=== PATIENT | female | born 1935 | race Caucasian/White ===

== ENCOUNTER 2020-06-26 07:46 | Outpatient (REF) | payer MEDICARE, SELFPAY ==
[2020-06-26 08:47] LABS: Mean Corpuscular Volume 95.6 fL (80-98)
[2020-06-26 08:49] LABS: Basophils Percent Auto 0.6 % (0-2); Eosinophils Absolute Auto 0.3 X10*3/uL (0.0-0.4); Eosinophils Percent Auto 5.4 % (0-4); Hematocrit 41.6 % (37-47); Hemoglobin 13.3 g/dl (12.0-16.0); Lymphocytes Absolute Auto 1.7 X10*3/uL (1.2-4.9); Lymphocytes Percent Auto 34.8 % (20-40); Mean Corpuscular Hemoglobin 30.6 pg (27.0-33.0); Mean Platelet Volume 10.8 fL (9.4-12.3); Monocytes Absolute Auto 0.5 X10*3/uL (0.1-1.2); Monocytes Percent Auto 9.9 % (2-11); Neutrophils Absolute Auto 2.5 X10*3/uL (2.0-8.3); Neutrophils Percent Auto 49.3 % (45-73); Platelet Count 131 X10*3/uL (160-400); Red Blood Count 4.35 X10*6/uL (4.20-5.50); Red Cell Distribution Width 12.6 % (11.0-16.0)
[2020-06-26 08:58] LABS: MANUAL DIFF FLAG NO
[2020-06-26 09:11] LABS: Alanine Aminotransferase 27 U/L (0-31); Albumin Level 4.2 g/dL (3.5-5.0); Alkaline Phosphatase 37 U/L (39-117); Anion Gap 13 (12-20); Aspartate Amino Transferase 21 U/L (5-31); Bilirubin Total 0.6 mg/dL (0.0-1.0); Blood Urea Nitrogen 21 mg/dL (9-16); Calcium 9.7 mg/dL (8.4-10.2); Carbon Dioxide 27 mmol/L (22-29); Chloride 105 mmol/L (96-108); Cholesterol 144 mg/dL; Estimated Glomerular Filt Rate > 60; Glucose Fasting 158 mg/dL (60-99); HDL Cholesterol 57 mg/dL; LDL Cholesterol Calculated 67 mg/dl; Potassium 4.6 mmol/l (3.3-5.1); Sodium 140 mmol/L (135-145); Total Protein 6.5 g/dL (6.5-8.0); Triglycerides 103 mg/dL
[2020-06-26 09:21] LABS: T4 Thyroxine 8.6 ug/dL (4.5-12.0); Thyroid Stimulating Hormone 1.65 uIU/mL (0.32-4.0)
[2020-06-26 09:41] LABS: Microalbum/Creatinine Ratio Ur 13.8 ug/mg cr
[2020-06-26 10:15] LABS: Folate 19.1 ng/mL (> or = 4.0); Vitamin B12 825 pg/mL (200-900)
== END 2020-06-26 07:47 | disposition home or self-care (01) ==
LOC: HO.LAB 07:46
PROVIDERS: PCP Internal Medicine; Visit Provider Internal Medicine
DX: E11.65 Type 2 diabetes mellitus with hyperglycemia (principal); E66.01 Morbid (severe) obesity due to excess calories; J45.998 Other asthma; E78.00 Pure hypercholesterolemia, unspecified; I10 Essential (primary) hypertension; E03.9 Hypothyroidism, unspecified
CPT/HCPCS: 36415; 80053; 80061; 82043; 82306; 82607; 82746; 84436; 84443; 85025

== ENCOUNTER 2020-07-25 12:41 | Outpatient (REF) | payer MEDICARE, SELFPAY | END 2020-07-25 12:42 | disposition home or self-care (01) | LOC: HO.LAB 12:41 | PROVIDERS: PCP Internal Medicine; Visit Provider Internal Medicine | DX: Z20.822 Contact with and (suspected) exposure to COVID-19 (principal) | CPT/HCPCS: 36415; C9803; U0003 ==

== ENCOUNTER 2021-06-21 08:26 | Outpatient (REF) | payer MEDICARE, SELFPAY ==
[2021-06-21 08:55] LABS: MANUAL DIFF FLAG NO
[2021-06-21 09:02] LABS: Basophils Percent Auto 0.6 % (0-2); Eosinophils Absolute Auto 0.2 X10*3/uL (0.0-0.4); Eosinophils Percent Auto 4.4 % (0-4); Hematocrit 42.3 % (37.0-47.0); Hemoglobin 13.6 g/dl (12.0-16.0); Lymphocytes Absolute Auto 1.4 X10*3/uL (1.2-4.9); Lymphocytes Percent Auto 28.9 % (20-40); Mean Corpuscular HGB Conc 32.2 g/dl (31.0-35.0); Mean Corpuscular Hemoglobin 30.6 pg (27.0-33.0); Mean Corpuscular Volume 95.3 fL (80.0-98.0); Monocytes Absolute Auto 0.4 X10*3/uL (0.1-1.2); Neutrophils Absolute Auto 2.7 x10*3/uL (2.0-8.3); Neutrophils Percent Auto 57.1 % (45-73); Platelet Count 123 X10*3/uL (160-400); Red Blood Count 4.44 X10*6/uL (4.20-5.50); Red Cell Distribution Width 12.7 % (11.0-16.0); White Blood Count 4.8 X10*3/uL (4.8-10.8)
[2021-06-21 09:52] LABS: Alanine Aminotransferase 21 U/L (0-31); Alkaline Phosphatase 38 U/L (39-117); Anion Gap 12 (12-20); Aspartate Amino Transferase 18 U/L (5-31); Blood Urea Nitrogen 18 mg/dL (9-16); Calcium 9.4 mg/dL (8.4-10.2); Carbon Dioxide 25 mmol/L (22-29); Chloride 108 mmol/L (96-108); Cholesterol 148 mg/dL; Estimated Glomerular Filt Rate > 60; Glucose Random 142 mg/dL (60-115); HDL Cholesterol 51 mg/dL; LDL Cholesterol Calculated 72 mg/dl; Potassium 4.4 mmol/L (3.3-5.1); Sodium 141 mmol/L (135-145); Total Protein 6.5 g/dL (6.5-8.0); Triglycerides 125 mg/dL
[2021-06-21 10:00] LABS: Estimated Average Glucose 157 mg/dL; Hemoglobin A1c % 7.1 %
[2021-06-21 10:12] LABS: Thyroid Stimulating Hormone 2.33 uIU/mL (0.32-4.0); Vitamin D 25-OH Total 37.6 ng/mL (>30)
[2021-06-21 10:31] LABS: Folate 18.5 ng/mL (> or = 4.0); Vitamin B12 474 pg/mL (200-900)
[2021-06-21 11:00] LABS: Creatinine Urine 114.93 mg/dL; Microalbum/Creatinine Ratio Ur 8.7 ug/mg cr
== END 2021-06-21 08:27 | disposition home or self-care (01) ==
LOC: HO.LAB 08:26
PROVIDERS: PCP Internal Medicine; Referring Provider Internal Medicine; Visit Provider Internal Medicine
DX: E11.65 Type 2 diabetes mellitus with hyperglycemia (principal); E78.00 Pure hypercholesterolemia, unspecified; Z79.4 Long term (current) use of insulin
CPT/HCPCS: 36415; 80053; 80061; 82043; 82306; 82607; 82746; 83036; 84443; 85025

== ENCOUNTER 2022-04-15 07:39 | Outpatient (REF) | payer MEDICARE, SELFPAY ==
[2022-04-15 08:02] LABS: MANUAL DIFF FLAG NO
[2022-04-15 08:38] LABS: Basophils Percent Auto 0.9 % (0-2); Eosinophils Absolute Auto 0.2 X10*3/uL (0.0-0.4); Eosinophils Percent Auto 3.5 % (0-4); Hematocrit 41.9 % (37.0-47.0); Hemoglobin 13.2 g/dl (12.0-16.0); Imm Gran Abs Auto 0.01 X10*3/uL (0.00-0.03); Imm Gran Pct Auto 0.2 % (0.0-0.4); Lymphocytes Absolute Auto 1.4 X10*3/uL (1.2-4.9); Lymphocytes Percent Auto 30.6 % (20-40); Mean Corpuscular HGB Conc 31.5 g/dl (31.0-35.0); Mean Corpuscular Hemoglobin 30.8 pg (27.0-33.0); Mean Corpuscular Volume 97.7 fL (80.0-98.0); Mean Platelet Volume 11.1 fL (9.4-12.3); Monocytes Absolute Auto 0.5 X10*3/uL (0.1-1.2); Monocytes Percent Auto 9.8 % (2-11); Neutrophils Absolute Auto 2.5 x10*3/uL (2.0-8.3); Platelet Count 118 X10*3/uL (160-400); Red Blood Count 4.29 X10*6/uL (4.20-5.50); Red Cell Distribution Width 12.3 % (11.0-16.0); White Blood Count 4.6 X10*3/uL (4.8-10.8)
[2022-04-15 08:48] LABS: Estimated Average Glucose 146 mg/dL; Hemoglobin A1c % 6.7 %
[2022-04-15 09:18] LABS: Alanine Aminotransferase 28 U/L (0-31); Albumin Level 4.1 g/dL (3.5-5.0); Alkaline Phosphatase 33 U/L (39-117); Anion Gap 16 (12-20); Aspartate Amino Transferase 23 U/L (5-31); Bilirubin Total 0.6 mg/dL (0.0-1.0); Blood Urea Nitrogen 17 mg/dL (9-16); Calcium 9.4 mg/dL (8.4-10.2); Carbon Dioxide 22 mmol/L (22-29); Chloride 108 mmol/L (96-108); Cholesterol 137 mg/dL; Estimated Glomerular Filt Rate > 60; Glucose Random 129 mg/dL (60-115); HDL Cholesterol 56 mg/dL; LDL Cholesterol Calculated 62 mg/dl; Potassium 4.9 mmol/L (3.3-5.1); Sodium 141 mmol/L (135-145); Total Protein 6.3 g/dL (6.5-8.0); Triglycerides 95 mg/dL
[2022-04-15 09:27] LABS: Free T4 (Free Thyroxine) 1.13 ng/dL (0.71-1.85); Thyroid Stimulating Hormone 2.08 uIU/mL (0.32-4.0)
== END 2022-04-15 07:40 | disposition home or self-care (01) ==
LOC: HO.LAB 07:39
PROVIDERS: PCP Internal Medicine; Visit Provider Internal Medicine
DX: I63.9 Cerebral infarction, unspecified (principal); E78.00 Pure hypercholesterolemia, unspecified
CPT/HCPCS: 36415; 80053; 80061; 83036; 84439; 84443; 85025

== ENCOUNTER 2022-04-19 11:52 | Outpatient (REF) | payer OTHER, SELFPAY ==
--- NOTE | ~2022-04-19 | XR_ITS ---
EXAMINATION: XR HIP, RIGHT CLINICAL INFORMATION: Pain. COMPARISON: None TECHNIQUE: AP and frog-leg lateral views of the right hip. FINDINGS: Bony alignment and mineralization are normal. There is mild narrowing of the right acetabular joint space medially. There is mild subchondral sclerosis of the right acetabular roof. No fracture or dislocation is seen. The right femoral head is smooth. There is mild enthesophyte formation of the greater trochanter of the proximal right femur. The soft tissue planes are unremarkable, without foreign body. XR/XR hip RT min 2V IMPRESSION: Mild osteoarthritic change is seen of the right hip. No fracture or dislocation is seen.
== END 2022-04-19 11:53 | disposition home or self-care (01) ==
LOC: HO.XRAY 11:52
PROVIDERS: PCP Internal Medicine; Visit Provider Internal Medicine
DX: M25.551 Pain in right hip (principal)
CPT/HCPCS: 73502

== ENCOUNTER 2022-09-18 11:33 | Outpatient (REF) | payer OTHER, SELFPAY ==
--- NOTE | ~2022-09-18 | XR_ITS ---
EXAMINATION: XR LUMBOSACRAL SPINE CLINICAL INFORMATION: Lower back pain. COMPARISON: Radiographs dated 06/25/2018. TECHNIQUE: AP and lateral views of the lumbar spine and lateral view of the lumbosacral junction. FINDINGS: Vertebral body heights are normal. At L2-L3, there is mild posterior disc space narrowing and a 3 mm retrolisthesis. The remaining disc spaces are relatively well-maintained. No acute fracture or spondylolisthesis is seen. There is multi-level lower thoracic and lumbar spondylosis. The posterior elements are intact. There is marked facet arthropathy at L5-S1. There are aortoiliac atherosclerotic calcifications. There are upper abdominal surgical clips. XR/XR lumbar spine 2-3V IMPRESSION: There is are degenerative changes of the thoracolumbar spine. In particular, there is mild to moderate degenerative disc disease at L2-L3.
== END 2022-09-18 11:34 | disposition home or self-care (01) ==
LOC: HO.XRAY 11:33
PROVIDERS: PCP Internal Medicine; Visit Provider Internal Medicine
DX: M54.50 Low back pain, unspecified (principal)
CPT/HCPCS: 72100

== ENCOUNTER 2022-10-03 13:23 | Outpatient (REF) | payer OTHER, SELFPAY ==
[2022-10-03 14:14] LABS: Estimated Average Glucose 148 mg/dL; Hemoglobin A1c % 6.8 %
[2022-10-03 14:33] LABS: Alanine Aminotransferase 27 U/L (0-31); Albumin Level 3.9 g/dL (3.5-5.0); Alkaline Phosphatase 37 U/L (39-117); Anion Gap 17 (12-20); Aspartate Amino Transferase 24 U/L (5-31); Bilirubin Total 0.8 mg/dL (0.0-1.0); Blood Urea Nitrogen 19 mg/dL (9-16); Carbon Dioxide 20 mmol/L (22-29); Chloride 109 mmol/L (96-108); Cholesterol 138 mg/dL; Estimated Glomerular Filt Rate > 60; Glucose Random 130 mg/dL (60-115); HDL Cholesterol 53 mg/dL; LDL Cholesterol Calculated 56 mg/dl; Potassium 4.6 mmol/L (3.3-5.1); Sodium 141 mmol/L (135-145); Total Protein 6.1 g/dL (6.5-8.0); Triglycerides 148 mg/dL
[2022-10-03 14:54] LABS: Vitamin B12 727 pg/mL (200-900)
[2022-10-03 15:44] LABS: Creatinine Urine 102.27 mg/dL; Microalbum/Creatinine Ratio Ur 8.8 ug/mg cr
== END 2022-10-03 13:24 | disposition home or self-care (01) ==
LOC: HO.LAB 13:23
PROVIDERS: PCP Internal Medicine; Visit Provider Internal Medicine
DX: E11.42 Type 2 diabetes mellitus with diabetic polyneuropathy (principal); Z79.4 Long term (current) use of insulin
CPT/HCPCS: 36415; 80053; 80061; 82043; 82607; 83036

== ENCOUNTER 2022-11-20 13:41 | Outpatient (REF) | payer OTHER, SELFPAY ==
--- NOTE | ~2022-11-20 | MM_ITS ---
EXAMINATION: BONE DENSITOMETRY CLINICAL INDICATION: Age-related osteoporosis without current pathological fracture. COMPARISON: Previous BD dated 03/19/2018 and baseline BD dated 02/07/2014. TECHNIQUE: Using a [employer] DXA System (software version: 13.1) manufactured by [employer], dual-energy x-ray absorptiometry was performed of the lumbar spine and left hip. The images are of good technical quality. Summary results are attached. FINDINGS: AP SPINE L1-L4: There are multilevel degenerative changes lumbar spine which may correlate over estimation of the lumbar bone mineral density. Current: BMD 1.550 g/cm2, Z-score 3.8, T-score 3.1, normal, 4.1% increase from previous, 5.9% increase from baseline (<5% change is not significant). Prior: BMD 1.489 g/cm2. Baseline: BMD 1.463 g/cm2. LEFT FEMUR, NECK: Current: BMD 1.122 g/cm2, Z-score 2.2, T-score 0.6, normal. Prior: BMD 1.191 g/cm2. Baseline: BMD 1.188 g/cm2. LEFT FEMUR, TOTAL: Current: BMD 1.381 g/cm2, Z-score 4.4, T-score 3.0, normal, 1.4% decrease from previous, 4.4% decrease from baseline (<5% change is not significant). Prior: BMD 1.401 g/cm2. Baseline: BMD 1.445 g/cm2. IDENTIFIED RISK FACTORS: Bilateral oophorectomy, early menopause, hysterectomy, secondary osteoporosis. HISTORY OF FRACTURE: None listed. MEDICATIONS: Calcium, vitamin D. MM/XR DEXA axial skeleton IMPRESSION: 1. DIAGNOSIS: Normal bone density based on the lowest T-score value of 0.6 in the femoral neck applying World Health Organization criteria. 2. 10-YEAR FRACTURE RISK PREDICTION, FRAX: According to the guidelines, FRAX calculation should only be performed on patients in the osteopenia bone density category. Therefore, FRAX was not performed on this patient. 3. Treatment Recommendations: NOF guidelines recommend consideration for treatment in postmenopausal women and men age 50 and older presenting with the following: -A hip or vertebral (clinical or morphometric) fracture. -T-score less than or equal to -2.5 at the femoral neck or spine after appropriate evaluation to exclude secondary causes. -Low bone mass at the hip or spine and a 10-year fracture probability by FRAX of greater than or equal to 3% for hip fracture or greater than or equal to 20% for major osteoporotic fracture based on the [place] adapted WHO algorithm. 4. Other Recommendations: All treatment decisions require clinical judgment and consideration of individual patient factors, including patient preferences, comorbidities, previous drug use, risk factors not captured in the FRAX model (e.g. frailty, falls, vitamin D deficiency, increased bone turnover, interval significant decline in bone density) and possible under or overestimation of fracture risk by FRAX. FUTURE SCAN RECOMMENDATION: People with diagnosed cases of osteoporosis or at high risk for fracture should have regular bone mineral density tests. For patients eligible for Medicare, routine testing is allowed once every 2 years. The testing frequency can be increased to one year for patients who have rapidly progressing disease, those who are receiving or discontinuing medical therapy to restore bone mass, or have additional risk factors.
== END 2022-11-20 13:42 | disposition home or self-care (01) ==
LOC: HO.MAMMO 13:41
PROVIDERS: PCP Internal Medicine; Visit Provider Internal Medicine
DX: M81.0 Age-related osteoporosis without current pathological fracture (principal)
CPT/HCPCS: 77080

== ENCOUNTER 2023-05-02 12:16 | Outpatient (AMB) | payer OTHER, SELFPAY ==
[2023-05-02 12:20] VITALS: BP 132/62; PULSE 81; O2SAT 96; BMI 40.5
--- NOTE | 2023-05-02 12:20 | MHC.PC.OV ---
Vital Signs 05/02/23 12:20 Height 5 ft 6 in Weight 251 lb BMI 40.5 BP 132/62 Blood Pressure Location Lt brachial Position Sitting Pulse 81 Pulse Source Pulse Oximeter Pulse Oximetry (%) 96 Oxygen Delivery Method Room Air Intake Visit Reasons: DM Allergies lisinopril [LISINOPRIL] Allergy (Unknown, Verified 05/02/23 12:21) COUGH Tobacco use date assessed: 08/09/22 Fall risk assessment: No Falls in past year Last assessed Fall Risk: 05/02/23 Dental Screening Dental Screen Date: 05/02/23 Did you have a dental visit in the last 12 months?: Yes Did you have a dental problem in the last 6 months where you did not have access to dental care?: No Was dental information given to patient?: Patient has dentist HPI DM HPI Details 87-year-old obese female morbid with controlled diabetes mellitus hypercholesterolemia hypertension GERD obstructive sleep apnea hypothyroidism last seen in October 2022. Patient comes in for follow-up. 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 problem with cgm wide fluctuations. complains of low back pain [facility] Medical History (Updated 12/26/22 @ 14:59 by Luzma Galindo MD) Osteoarthritis Type 2 diabetes mellitus with hyperglycemia Pulmonary nodule Asthma Obesity Hypercholesterolemia Hypertension GERD (gastroesophageal reflux disease) Urge incontinence Obstructive sleep apnea Thrombocytopenia Vitamin D deficiency Insomnia Hypothyroidism Surgical History (Updated 06/26/20 @ 12:05 by Joanne Mascorro [facility]) History of bilateral cataract extraction History of tonsillectomy History of total abdominal hysterectomy and bilateral salpingo-oophorectomy History of appendectomy History of cholecystectomy History of knee replacement procedure of right knee History of left knee replacement Family History (Updated 10/31/22 @ 12:45 by Karen Tejeda CMA) Father Myocardial infarction Hypertension CVD (cardiovascular disease) Mother Hypertension Diabetes Cancer Brother Stroke Diabetes Sister Stroke Diabetes Paternal Uncle Myocardial infarction Social History (Updated 03/16/21 @ 14:13 by Luzma Galindo MD) Housing: Apartment Alcohol intake: never Patient Tobacco Use Status: Former Tobacco user Tobacco use type: Cigarette Years Smoked: stopped 1960 e-Cigarette/Vaping Use: Never Used Second Hand Smoke Exposure: No service: No Current occupational status: retired Cognitive needs: No Hearing needs: No Vision needs: Yes Questionnaire PHQ-9 Over the last 2 weeks, how often have you been bothered by any of the following problems? 1. Little interest or pleasure in doing things: not at all 2. Feeling down, depressed, or hopeless: not at all 3. Trouble falling or staying asleep, or sleeping too much: not at all 4. Feeling tired or having little energy: not at all 5. Poor appetite or overeating: not at all 6. Feeling bad about yourself - or that you are a failure or have let yourself or your family down: not at all 7. Trouble concentrating on things, such as reading the newspaper or watching television: not at all 8. Moving or speaking so slowly that other people could have noticed. Or the opposite - being so fidgety or restless that you have been moving around a lot more than usual: not at all 9. Thoughts that you would be better off or of hurting yourself in some way: not at all Total score: 0 Depression Screening Interpretation: Negative Depression Screening Done: Yes Source: Developed by Drs. Lico Chand, Alisson Hill, Bang Matson and colleagues, with an educational maribell from [employer]. Thrive Questionnaire Date Thrive assessed: 08/09/22 AUDIT C Alcohol Use Questionnaire (AUDIT-C) 1. How often do you have a drink containing alcohol?: Never 2. How many drinks containing alcohol do you have on a typical day when you are drinking?: 1 or 2 (0) 3. How often do you have six or more drinks on one occasion?: Never Total Score: 0 ROYAL-7 AMB Questionnaire ROYAL-7 Date ROYAL - 7 assessed: 08/09/22 Source: Developed by Drs. Lico Chand, Alisson Hill, Bang Matson and colleagues, with an educational maribell from [employer]. Physical exam (Primary Care) Vital Signs: Last Vital Signs Pulse 81 05/02/23 12:20 BP 132/62 05/02/23 12:20 Pulse Ox 96 05/02/23 12:20 Oxygen Delivery Method Room Air 05/02/23 12:20 BMI result Body Mass Index 40.5 Tobacco/Smoking Status: Tobacco use Status Tobacco use date assessed 08/09/22 05/02/23 12:22 Patient Tobacco Use Status Former Tobacco user 05/02/23 12:22 Tobacco use type Cigarette 05/02/23 12:22 e-Cigarette/Vaping Use Never Used 05/02/23 12:22 PHQ-9: PHQ-9 Score PHQ-9: Total score 0 05/02/23 12:22 Depression Screening Interpretation: Negative Thrive Assessment: Date of Thrive Assessment Date Thrive assessed 08/09/22 05/02/23 12:22 Const General: alert; No acute distress Eyes Conjunctivae: conjunctivae normal Resp Auscultation: clear to auscultation bilaterally Cardio Rate: regular rate Rhythm: regular rhythm GI Inspection: Yes normal to inspection Extrem General: Yes normal to inspection and No edema Results AMB Hemoglobin A1c AMB Hemoglobin A1c 6.8 % Last Edit by Karen Tejeda CMA on 05/02/23 12:35 Assessment and Plan Assessment & Plan (1) Type 2 diabetes mellitus with hyperglycemia: Code(s): E11.65 - Type 2 diabetes mellitus with hyperglycemia Qualifiers: Diabetes mellitus penitentiary insulin use: with penitentiary use Qualified Code(s): E11.65 - Type 2 diabetes mellitus with hyperglycemia; Z79.4 - retirement (current) use of insulin Plan: Decrease the amount of carbohydrate intake, pasta, bread, rice and potatoes are all sugar and that is aside from all the sweet stuff, remember that fruits are good but they are Sweet also. Hemoglobin A1c goal of less than 7.0. Patient on Lantus metformin (2) Obesity: Code(s): E66.9 - Obesity, unspecified Qualifiers: Body mass index: BMI 40.0-44.9 Obesity classification: adult class 3 (BMI >= 40) Obesity type: due to excess calories Serious obesity comorbidity presence: with serious comorbidity Qualified Code(s): E66.01 - Morbid (severe) obesity due to excess calories; Z68.41 - Body mass index [BMI]40.0-44.9, adult Plan: Diet and exercise (3) Hypertension: Comment: Echocardiogram August 2019 60-65% nuclear stress test negative September 2019 Code(s): I10 - Essential (primary) hypertension Qualifiers: Hypertension type: essential hypertension Qualified Code(s): I10 - Essential (primary) hypertension Plan: Continue with blood pressure medication. Decrease salt intake and exercise patient takes losartan 100 mg once a day (4) Hypercholesterolemia: Code(s): E78.00 - Pure hypercholesterolemia, unspecified Plan: Avoid fried foods, chicken skin, eggs, butter margarine, pastries and meat. Be it pork or beef they have a lot of cholesterol LDL goal of less than 100 and triglyceride of less than 150 patient takes simvastatin 40 mg once a day (5) GERD (gastroesophageal reflux disease): Code(s): K21.9 - Gastro-esophageal reflux disease without esophagitis Qualifiers: Esophagitis presence: without esophagitis Qualified Code(s): K21.9 - Gastro-esophageal reflux disease without esophagitis Plan: Avoid the foods that causes that usually spicy foods, tomato products, juices, coffee, soda and foods that your sensitive to. After eating do not lie down, allow 3-4 hours before in lie down. And keep the head of bed above 30 degrees to avoid the acid from going up. (6) Obstructive sleep apnea: Comment: October 2013RESMED nasal mask medium size 6 cm water humidified air Code(s): G47.33 - Obstructive sleep apnea (adult) (pediatric) Plan: Continue to use the CPAP more than 4 hours a night and benefits from this (7) Hypothyroidism: Code(s): E03.9 - Hypothyroidism, unspecified Qualifiers: Hypothyroidism type: acquired Qualified Code(s): E03.9 - Hypothyroidism, unspecified Plan: Continue with the thyroid medication. 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 (current) use of insulin Vitamin B12 and Folate 5 Months E11.65 - Type 2 diabetes mellitus with hyperglycemia, Z79.4 - 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 (current) use of insulin Lipid Panel 5 Months E11.65 - Type 2 diabetes mellitus with hyperglycemia, E78.00 - Pure hypercholesterolemia, unspecified, Z79.4 - retirement (current) use of insulin Medications: Refilled cyclobenzaprine 5 mg PO TID 30 days PRN 30 tabs 0RF muscle spasm M54.50 - Low back pain, unspecified Coding Level of Care Code Est Pt Level 4 (71562) Diagnoses Type 2 diabetes mellitus with hyperglycemia, with long-term current use of insulin E11.65; Z79.4 Diabetes mellitus penitentiary insulin use: with 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 use Class 3 severe obesity due to excess calories with serious comorbidity and body mass index (BMI) of 40.0 to 44.9 in adult E66.01; Z68.41 Body mass index: BMI 40.0-44.9 Obesity classification: adult class 3 (BMI >= 40) Obesity type: due to excess calories Serious obesity comorbidity presence: with serious comorbidity Essential hypertension I10 Hypertension type: essential hypertension Hypercholesterolemia E78.00 Gastroesophageal reflux disease without esophagitis K21.9 Esophagitis presence: without esophagitis Obstructive sleep apnea G47.33 Acquired hypothyroidism E03.9 Hypothyroidism type: acquired
== END 2023-05-02 12:52 | disposition home or self-care (01) ==
PROVIDERS: Visit Provider Internal Medicine
DX: E11.65 Type 2 diabetes mellitus with hyperglycemia (principal); Z79.4 Long term (current) use of insulin; E66.01 Morbid (severe) obesity due to excess calories; Z68.41 Body mass index [BMI] 40.0-44.9, adult; I10 Essential (primary) hypertension; E78.00 Pure hypercholesterolemia, unspecified; K21.9 Gastro-esophageal reflux disease without esophagitis; G47.33 Obstructive sleep apnea (adult) (pediatric); E03.9 Hypothyroidism, unspecified
CPT/HCPCS: 83036; 99214

== ENCOUNTER 2023-10-01 08:00 | Outpatient (REF) | payer OTHER, SELFPAY ==
[2023-10-01 08:30] LABS: MANUAL DIFF FLAG NO
[2023-10-01 08:42] LABS: Basophils Percent Auto 0.6 % (0-2); Eosinophils Absolute Auto 0.2 X10*3/uL (0.0-0.4); Eosinophils Percent Auto 3.4 % (0-4); Hemoglobin 13.1 g/dl (12.0-16.0); Imm Gran Abs Auto 0.02 X10*3/uL (0.00-0.03); Imm Gran Pct Auto 0.4 % (0.0-0.4); Lymphocytes Absolute Auto 1.8 X10*3/uL (1.2-4.9); Lymphocytes Percent Auto 34.7 % (20-40); Mean Corpuscular HGB Conc 32.8 g/dl (31.0-35.0); Mean Corpuscular Volume 94.6 fL (80.0-98.0); Mean Platelet Volume 10.6 fL (9.4-12.3); Monocytes Absolute Auto 0.4 X10*3/uL (0.1-1.2); Monocytes Percent Auto 7.8 % (2-11); Neutrophils Absolute Auto 2.8 x10*3/uL (2.0-8.3); Neutrophils Percent Auto 53.1 % (45-73); Platelet Count 144 X10*3/uL (160-400); Red Blood Count 4.23 X10*6/uL (4.20-5.50); Red Cell Distribution Width 12.6 % (11.0-16.0); White Blood Count 5.3 X10*3/uL (4.8-10.8)
[2023-10-01 09:19] LABS: Alanine Aminotransferase 24 U/L (0-31); Albumin Level 3.9 g/dL (3.5-5.0); Alkaline Phosphatase 41 U/L (39-117); Anion Gap 14 (12-20); Aspartate Amino Transferase 22 U/L (5-31); Bilirubin Total 0.6 mg/dL (0.0-1.0); Blood Urea Nitrogen 20 mg/dL (9-16); Calcium 9.9 mg/dL (8.4-10.2); Carbon Dioxide 26 mmol/L (22-29); Chloride 107 mmol/L (96-108); Cholesterol 141 mg/dL (<200); Estimated Glomerular Filt Rate > 60; Glucose Random 146 mg/dL (60-115); HDL Cholesterol 57 mg/dL (>40); LDL Cholesterol Calculated 61 mg/dL (<100); Potassium 4.7 mmol/L (3.3-5.1); Sodium 142 mmol/L (135-145); Total Protein 6.8 g/dL (6.5-8.0); Triglycerides 118 mg/dL (<150)
[2023-10-01 09:27] LABS: Thyroid Stimulating Hormone 1.89 uIU/mL (0.32-4.0); Vitamin D 25-OH Total 37.9 ng/mL (>30)
[2023-10-01 09:43] LABS: Appearance Urine Clear; Color Urine Yellow; Glucose Urine UA Negative (Negative); Leukocyte Esterase Urine Moderate (2+) (Negative); Nitrite Urine Negative (Negative); UMIC TRIGGER UACC YES; Urine Blood Negative (Negative); Urine Ketones Negative (Negative); Urine Protein Negative (Neg-Trace)
[2023-10-01 09:46] LABS: Folate 13.5 ng/mL (> or = 4.0); Vitamin B12 593 pg/mL (200-900)
[2023-10-01 10:10] LABS: Bacteria Urine 4+ (None Seen); Hyaline Casts Urine 0-2 /LPF (0-2); RBC Urine 0-2 /HPF (0-2); Squamous Epithelial Cell Urine 0-2 /HPF (0-2); UACC Culture Trigger YES; WBC Urine 21-50 /HPF (0-5)
[2023-10-01 10:32] LABS: Creatinine Urine 81.43 mg/dL; Microalbum/Creatinine Ratio Ur 14.7 ug/mg cr (<30)
== END 2023-10-01 08:01 | disposition home or self-care (01) ==
LOC: HO.LAB 08:00
PROVIDERS: PCP Internal Medicine; Visit Provider Internal Medicine
DX: E11.65 Type 2 diabetes mellitus with hyperglycemia (principal); E78.00 Pure hypercholesterolemia, unspecified; R30.0 Dysuria; N39.41 Urge incontinence; Z79.4 Long term (current) use of insulin
CPT/HCPCS: 36415; 80053; 80061; 81001; 82043; 82306; 82570; 82607; 82746; 84439; 84443; 85025; 87086; 87088; 87186

== ENCOUNTER 2023-10-02 12:51 | Outpatient (AMB) | payer OTHER, SELFPAY ==
[2023-10-02 12:53] VITALS: BP 138/72; PULSE 82; O2SAT 98; BMI 40.5
--- NOTE | 2023-10-02 12:53 | A.OFFPC_ITS ---
Vital Signs 10/02/23 12:53 Height 5 ft 6 in Weight 113.852 kg BMI 40.5 BP 138/72 Blood Pressure Location Lt brachial Position Sitting Pulse 82 Pulse Source Pulse Oximeter Pulse Oximetry (%) 98 Oxygen Delivery Method Room Air Intake Visit Reasons: DM Allergies lisinopril [LISINOPRIL] Allergy (Unknown, Verified 10/02/23 12:53) COUGH Medication List - Last Reconciled 10/02/23 by Luzma Carlson Po, albuterol sulfate 90 mcg/actuation (ProAir HFA) 2 puffs inhalation Q4-6H PRN amoxicillin 4 tabs at one time 1 hour before procedure PO; 30 days aspirin (Adult Aspirin Regimen) 81 mg PO DAILY biotin 300 mcg PO DAILY blood sugar diagnostic ([employer] Verio test strips) As directed test blood glucose 3x daily cholecalciferol (vitamin D3) 25 mcg PO DAILY [CPAP As directed] cyanocobalamin (vitamin B-12) 1,000 mcg PO DAILY cyclobenzaprine 5 mg PO TID PRN 30 days fexofenadine (Isis Allergy) 180 mg PO DAILY fluticasone propionate 50 mcg/actuation 2 sprays intranasal DAILY gabapentin 100 mg PO TID 90 days insulin glargine (Lantus Solostar U-100 Insulin) 20 units subcut QAM lancets test 3 times daily levothyroxine 88 mcg PO QAM losartan 100 mg PO DAILY metformin 1,000 mg (2 x 500 mg) PO BID 90 days miconazole nitrate 2% (Antifungal (miconazole)) 1 appl topical TID miconazole nitrate 2% (Zeasorb AF) 1 appl topical BID multivitamin 1 tab PO DAILY omega-3 fatty acids (Fish Oil Concentrate) 1,000 mg PO DAILY [RESMED nasal mask medium size 6 cm water humidified air As directed] simvastatin 40 mg PO BEDTIME solifenacin 10 mg PO DAILY 90 days sulfamethoxazole-trimethoprim 800-160 mg (Bactrim DS) 1 tab PO BID vitamins A,C,W-wkhv-uswqxf 4,296 mcg-226 mg-90 mg (PreserVision AREDS) 1 cap PO BID Tobacco use date assessed: 10/02/23 Fall risk assessment: No Falls in past year Last assessed Fall Risk: 10/02/23 Dental Screening Dental Screen Date: 10/02/23 Did you have a dental visit in the last 12 months?: Yes Did you have a dental problem in the last 6 months where you did not have access to dental care?: No Was dental information given to patient?: Patient has dentist HPI DM 2 HPI Details 88-year-old morbidly obese female with c ontrolled diabetes mellitus hypertension hypercholesterolemia GERD obstructive sleep apnea and hypothyroidism last seen in April 2023. Patient is here for follow-up. Patient has seen ophthalmology [facility] in July 2023 having dry macular degeneration. [facility] Medical History (Updated 10/02/23 @ 13:19 by Luzma Galindo MD) Osteoarthritis Type 2 diabetes mellitus with hyperglycemia Pulmonary nodule Asthma Obesity Hypercholesterolemia Hypertension GERD (gastroesophageal reflux disease) Urge incontinence Obstructive sleep apnea Thrombocytopenia Vitamin D deficiency Insomnia Hypothyroidism Surgical History (Updated 06/26/20 @ 12:05 by Joanne Mascorro) History of bilateral cataract extraction History of tonsillectomy History of total abdominal hysterectomy and bilateral salpingo-oophorectomy History of appendectomy History of cholecystectomy History of knee replacement procedure of right knee History of left knee replacement Family History (Updated 10/31/22 @ 12:45 by Karen Tejeda [facility]) Father Myocardial infarction Hypertension CVD (cardiovascular disease) Mother Hypertension Diabetes Cancer Brother Stroke Diabetes Sister Stroke Diabetes Paternal Uncle Myocardial infarction Social History (Updated 03/16/21 @ 14:13 by Luzma Galindo MD) Housing: Apartment Alcohol intake: never Patient Tobacco Use Status: Former Tobacco user Tobacco use type: Cigarette Years Smoked: stopped 1960 e-Cigarette/Vaping Use: Never Used Second Hand Smoke Exposure: No service: No Current occupational status: retired Cognitive needs: No Hearing needs: No Vision needs: Yes Questionnaire PHQ-9 Over the last 2 weeks, how often have you been bothered by any of the following problems? 1. Little interest or pleasure in doing things: not at all 2. Feeling down, depressed, or hopeless: not at all 3. Trouble falling or staying asleep, or sleeping too much: not at all 4. Feeling tired or having little energy: not at all 5. Poor appetite or overeating: not at all 6. Feeling bad about yourself - or that you are a failure or have let yourself or your family down: not at all 7. Trouble concentrating on things, such as reading the newspaper or watching television: not at all 8. Moving or speaking so slowly that other people could have noticed. Or the opposite - being so fidgety or restless that you have been moving around a lot more than usual: not at all 9. Thoughts that you would be better off or of hurting yourself in some way: not at all Total score: 0 Depression Screening Interpretation: Negative Depression Screening Done: Yes Source: Developed by Drs. Lico Chand, Alisson Hill, Bang Matson and colleagues, with an educational maribell from [employer]. Thrive Questionnaire Date Thrive assessed: 10/02/23 I am a: Patient What is your living situation today?: I have a steady place to live Within the past 12 months, did the food you bought not last and you didn't have the money to get more?: Never true Within the past 12 months, did you worry whether your food would run out before you got money to buy more?: Never true Do you have trouble paying for medicines?: No Do you have trouble getting transportation to medical appointments?: No Do you have trouble paying your heating and electricity bill?: No Do you have trouble taking care of your child, family member or friend?: No Do you have trouble with day-to-day activities such as bathing, preparing meals, shopping, managing finances, etc.?: No Are you currently unemployed and looking for a job?: No Are you interested in more education?: No Currently or been in a relationship where the following occur: no concerns reported THRIVE Score: 0 AUDIT C Alcohol Use Questionnaire (AUDIT-C) 1. How often do you have a drink containing alcohol?: Never 2. How many drinks containing alcohol do you have on a typical day when you are drinking?: 1 or 2 (0) 3. How often do you have six or more drinks on one occasion?: Never Total Score: 0 ROYAL-7 AMB Questionnaire ROYAL-7 Date ROYAL - 7 assessed: 10/02/23 Feeling nervous, anxious, or on edge: 0 = Not at all Not being able to stop or control worryin = Not at all Worrying too much about different things: 0 = Not at all Trouble relaxin = Not at all Being so restless that it is hard to sit still: 0 = Not at all Becoming easily annoyed or irritable: 0 = Not at all Feeling afraid as if something awful might happen: 0 = Not at all Total ROYAL-7 score (0-4 normal; 5-9 mild; 10-14 moderate; 15-21 severe): 0 Source: Developed by Drs. Lico Chand, Alisson Hill, Bang Matson and colleagues, with an educational maribell from [employer]. Physical exam (Primary Care) Vital Signs: Last Vital Signs Pulse 82 10/02/23 12:53 BP 138/72 10/02/23 12:53 Pulse Ox 98 10/02/23 12:53 Oxygen Delivery Method Room Air 10/02/23 12:53 BMI result Body Mass Index 40.5 Tobacco/Smoking Status: Tobacco use Status Tobacco use date assessed 10/02/23 10/02/23 12:55 Patient Tobacco Use Status Former Tobacco user 10/02/23 12:55 Tobacco use type Cigarette 10/02/23 12:55 e-Cigarette/Vaping Use Never Used 10/02/23 12:55 PHQ-9: PHQ-9 Score PHQ-9: Total score 0 10/02/23 13:07 Depression Screening Interpretation: Negative Thrive Assessment: Date of Thrive Assessment Date Thrive assessed 10/02/23 10/02/23 12:55 Currently or been in a relationship where the following occur: no concerns reported Const General: alert; No acute distress Eyes Conjunctivae: conjunctivae normal Resp Auscultation: clear to auscultation bilaterally Cardio Rate: regular rate Rhythm: regular rhythm GI Inspection: Yes normal to inspection Extrem General: Yes normal to inspection and No edema Results AMB Hemoglobin A1c AMB Hemoglobin A1c 6.6 % Last Edit by Karen Tejeda CMA on 10/02/23 13 :21 Assessment and Plan Assessment & Plan (1) Type 2 diabetes mellitus with hyperglycemia: Code(s): E11.65 - Type 2 diabetes mellitus with hyperglycemia Qualifiers: Diabetes mellitus intermediate manager insulin use: with intermediate manager use Qualified Code(s): E11.65 - Type 2 diabetes mellitus with hyperglycemia; Z79.4 - long-term (current) use of insulin Plan: Decrease the amount of carbohydrate intake, pasta, bread, rice and potatoes are all sugar and that is aside from all the sweet stuff, remember that fruits are good but they are Sweet also. Hemoglobin A1c goal of less than 7.0 patient is presently on Lantus 23 units once a day metformin at 1000 mg twice a day (2) Obesity: Code(s): E66.9 - Obesity, unspecified Qualifiers: Body mass index: BMI 40.0-44.9 Obesity classification: adult class 3 (BMI >= 40) Obesity type: due to excess calories Serious obesity comorbidity presence: with serious comorbidity Qualified Code(s): E66.01 - Morbid (severe) obesity due to excess calories; Z68.41 - Body mass index [BMI]40.0-44.9, adult Plan: Diet and exercise (3) Hypertension: Comment: Echocardiogram August 2019 60-65% nuclear stress test negative September 2019 Code(s): I10 - Essential (primary) hypertension Qualifiers: Hypertension type: essential hypertension Qualified Code(s): I10 - Essential (primary) hypertension Plan: Continue with blood pressure medication. Decrease salt intake and exercise patient on losartan 100 mg once a day (4) Hypercholesterolemia: Code(s): E78.00 - Pure hypercholesterolemia, unspecified Plan: Avoid fried foods, chicken skin, eggs, butter margarine, pastries and meat. Be it pork or beef they have a lot of cholesterol September 2022 last blood work LDL goal of less than 100 and triglyceride of less than 150 patient on simvastatin 40 mg once a day (5) GERD (gastroesophageal reflux disease): Code(s): K21.9 - Gastro-esophageal reflux disease without esophagitis Qualifiers: Esophagitis presence: without esophagitis Qualified Code(s): K21.9 - Gastro-esophageal reflux disease without esophagitis Plan: Avoid the foods that causes that usually spicy foods, tomato products, juices, coffee, soda and foods that your sensitive to. After eating do not lie down, allow 3-4 hours before in lie down. And keep the head of bed above 30 degrees to avoid the acid from going up. (6) Obstructive sleep apnea: Comment: October 2013RESMED nasal mask medium size 6 cm water humidified air Code(s): G47.33 - Obstructive sleep apnea (adult) (pediatric) Plan: Continue to use the CPAP more than 4 hours a night and benefits from this. (7) Hypothyroidism: Code(s): E03.9 - Hypothyroidism, unspecified Qualifiers: Hypothyroidism type: acquired Qualified Code(s): E03.9 - Hypothyroidism, unspecified Plan: Continue with thyroid medication September 2022 last blood work (8) UTI (urinary tract infection): Code(s): N39.0 - Urinary tract infection, site not specified Orders: Orders AMB Hemoglobin A1c Today Z13.9 - Encounter for screening, unspecified Referrals Podiatry Referral E11.65 - Type 2 diabetes mellitus with hyperglycemia, Z79.4 - intermediate manager (current) use of insulin Medications: New sulfamethoxazole-trimethoprim 800-160 mg (Bactrim DS) 1 tab PO BID 14 tabs 0RF N39.0 - Urinary tract infection, site not specified Changed From insulin glargine (Lantus Solostar U-100 Insulin) or as directed 23 units (0.23 mL) subcut QAM 15 mL 3RF E11.65 - Type 2 diabetes mellitus with hyperglycemia, Z79.4 - intermediate manager (current) use of insulin To insulin glargine (Lantus Solostar U-100 Insulin) or as directed 20 units subcut QAM E11.65 - Type 2 diabetes mellitus with hyperglycemia, Z79.4 - long-term (current) use of insulin Coding Level of Care Code Est Pt Level 4 (13736) Diagnoses Type 2 diabetes mellitus with hyperglycemia, with long-term current use of insulin E11.65; Z79.4 Diabetes mellitus long-term insulin use: with long-term use Class 3 severe obesity due to excess calories with serious comorbidity and body mass index (BMI) of 40.0 to 44.9 in adult E66.01; Z68.41 Body mass index: BMI 40.0-44.9 Obesity classification: adult class 3 (BMI >= 40) Obesity type: due to excess calories Serious obesity comorbidity presence: with serious comorbidity Essential hypertension I10 Hypertension type: essential hypertension Hypercholesterolemia E78.00 Gastroesophageal reflux disease without esophagitis K21.9 Esophagitis presence: without esophagitis Obstructive sleep apnea G47.33 Acquired hypothyroidism E03.9 Hypothyroidism type: acquired UTI (urinary tract infection) N39.0
== END 2023-10-02 13:24 | disposition home or self-care (01) ==
PROVIDERS: PCP Internal Medicine; Visit Provider Internal Medicine
DX: E11.65 Type 2 diabetes mellitus with hyperglycemia (principal); Z79.4 Long term (current) use of insulin; E66.01 Morbid (severe) obesity due to excess calories; Z68.41 Body mass index [BMI] 40.0-44.9, adult; I10 Essential (primary) hypertension; E78.00 Pure hypercholesterolemia, unspecified; K21.9 Gastro-esophageal reflux disease without esophagitis; G47.33 Obstructive sleep apnea (adult) (pediatric); E03.9 Hypothyroidism, unspecified; N39.0 Urinary tract infection, site not specified
CPT/HCPCS: 83036; 99214

== ENCOUNTER 2023-10-21 15:27 | Outpatient (AMB) | payer OTHER, SELFPAY ==
[2023-10-21 15:34] VITALS: BP 144/68; PULSE 93; O2SAT 98; BMI 40.4
--- NOTE | 2023-10-21 15:34 | A.OFFPC_ITS ---
Vital Signs 10/21/23 15:34 Height 5 ft 6 in Weight 250 lb 0.4 oz BMI 40.4 BP 144/68 H Blood Pressure Location Lt brachial Position Sitting Pulse 93 Pulse Source Pulse Oximeter Pulse Oximetry (%) 98 Oxygen Delivery Method Room Air Intake Visit Reasons: Rectal Bleeding [employer] Required: No Allergies lisinopril [LISINOPRIL] Allergy (Unknown, Verified 10/21/23 15:35) COUGH Sulfa (Sulfonamide Antibiotics) Adverse Reaction (Intermediate, Verified 10/21/23 15:35) Nausea Medication List - Last Reconciled 10/21/23 by Luzma Galindo MD albuterol sulfate 90 mcg/actuation (ProAir HFA) 2 puffs inhalation Q4-6H PRN amoxicillin 4 tabs at one time 1 hour before procedure PO; 30 days aspirin (Adult Aspirin Regimen) 81 mg PO DAILY biotin 300 mcg PO DAILY blood sugar diagnostic ([employer] Verio test strips) As directed test blood glucose 3x daily cholecalciferol (vitamin D3) 25 mcg PO DAILY [CPAP As directed] cyanocobalamin (vitamin B-12) 1,000 mcg PO DAILY cyclobenzaprine 5 mg PO TID PRN 30 days fexofenadine (Isis Allergy) 180 mg PO DAILY fluticasone propionate 50 mcg/actuation 2 sprays intranasal DAILY gabapentin 100 mg PO TID 90 days hydrocortisone 2.5% (Proctosol HC) 1 appl SC BID-QID PRN insulin glargine (Lantus Solostar U-100 Insulin) 20 units subcut QAM lancets test 3 times daily levothyroxine 88 mcg PO QAM losartan 100 mg PO DAILY metformin 1,000 mg (2 x 500 mg) PO BID 90 days miconazole nitrate 2% (Antifungal (miconazole)) 1 appl topical TID miconazole nitrate 2% (Zeasorb AF) 1 appl topical BID multivitamin 1 tab PO DAILY omega-3 fatty acids (Fish Oil Concentrate) 1,000 mg PO DAILY [RESMED nasal mask medium size 6 cm water humidified air As directed] simvastatin 40 mg PO BEDTIME solifenacin 10 mg PO DAILY 90 days vitamins A,C,Y-eoea-xsuhij 4,296 mcg-226 mg-90 mg (PreserVision AREDS) 1 cap PO BID Tobacco use date assessed: 10/21/23 Dental Screening Dental Screen Date: 10/02/23 HPI Rectal Bleeding HPI Details 88-year-old morbidly obese female with c ontrolled diabetes mellitus hypertension hypercholesterolemia GERD hypothyroidism obstructive sleep apnea last seen in September 2023. Patient is concerned about bleeding and not really sure if it is vaginal or rectal. Patient's last colonoscopy was February 2012. 2 days ago flushed toilet, urinated with blood- noted dripping blood . - getting to go to bed with blood-no diarrhea, no constipation,no straining. Denies any vaginal discharge. Denies any dysuria. [facility] Medical History (Updated 10/21/23 @ 16:24 by Luzma Galindo MD) Osteoarthritis Type 2 diabetes mellitus with hyperglycemia Pulmonary nodule Asthma Obesity Hypercholesterolemia Hypertension GERD (gastroesophageal reflux disease) Urge incontinence Obstructive sleep apnea Thrombocytopenia Vitamin D deficiency Insomnia Hypothyroidism Surgical History (Updated 06/26/20 @ 12:05 by Joanne Mascorro) History of bilateral cataract extraction History of tonsillectomy History of total abdominal hysterectomy and bilateral salpingo-oophorectomy History of appendectomy History of cholecystectomy History of knee replacement procedure of right knee History of left knee replacement Family History (Updated 10/31/22 @ 12:45 by Karen Tejeda [facility]) Father Myocardial infarction Hypertension CVD (cardiovascular disease) Mother Hypertension Diabetes Cancer Brother Stroke Diabetes Sister Stroke Diabetes Paternal Uncle Myocardial infarction Social History (Updated 03/16/21 @ 14:13 by Luzma Galindo MD) Housing: Apartment Alcohol intake: never Patient Tobacco Use Status: Former Tobacco user Tobacco use type: Cigarette Years Smoked: stopped 1960 e-Cigarette/Vaping Use: Never Used Second Hand Smoke Exposure: No service: No Current occupational status: retired Cognitive needs: No Hearing needs: No Vision needs: Yes Questionnaire Thrive Questionnaire Date Thrive assessed: 10/02/23 AUDIT C Alcohol Use Questionnaire (AUDIT-C) 1. How often do you have a drink containing alcohol?: Never 2. How many drinks containing alcohol do you have on a typical day when you are drinking?: 1 or 2 (0) 3. How often do you have six or more drinks on one occasion?: Never Total Score: 0 ROYAL-7 AMB Questionnaire ROYAL-7 Date ROYAL - 7 assessed: 10/02/23 Source: Developed by Drs. Lico Chand, Alisson B.W. Bang Hill and colleagues, with an educational maribell from [id number]. Physical exam (Primary Care) Vital Signs: Last Vital Signs Pulse 93 10/21/23 15:34 BP 144/68 H 10/21/23 15:34 Pulse Ox 98 10/21/23 15:34 Oxygen Delivery Method Room Air 10/21/23 15:34 BMI result Body Mass Index 40.4 Tobacco/Smoking Status: Tobacco use Status Tobacco use date assessed 10/21/23 10/21/23 15:37 Patient Tobacco Use Status Former Tobacco user 10/21/23 15:37 Tobacco use type Cigarette 10/21/23 15:37 e-Cigarette/Vaping Use Never Used 10/21/23 15:37 Thrive Assessment: Date of Thrive Assessment Date Thrive assessed 10/02/23 10/21/23 15:37 Const General: alert; No acute distress Eyes Conjunctivae: conjunctivae normal Resp Auscultation: clear to auscultation bilaterally Cardio Rate: regular rate Rhythm: regular rhythm GI Other: cleaned perirectal area from blood and rectal exam negative guaiac, has sme blood dried fraire on the posterio rectal area + hemorrhoids Extrem General: Yes normal to inspection and No edema Assessment and Plan Assessment & Plan (1) Rectal bleeding: Code(s): K62.5 - Hemorrhage of anus and rectum Plan: proctosol sent in. discussed with the pain the importance of follow-up if the bleeding continues/persist after a week or so patient to call and referral to Gastroenterology to be done as soon as possible. Medications: New hydrocortisone 2.5% (Proctosol HC) 1 appl SC BID-QID PRN 30 grams 0RF hemorrhoids K62.5 - Hemorrhage of anus and rectum Coding Level of Care Code Est Pt Level 3 (50143) Diagnoses Rectal bleeding K62.5
== END 2023-10-21 16:33 | disposition home or self-care (01) ==
PROVIDERS: PCP Internal Medicine; Visit Provider Internal Medicine
DX: K62.5 Hemorrhage of anus and rectum (principal)
CPT/HCPCS: 99213

== ENCOUNTER 2024-04-07 12:36 | Outpatient (AMB) | payer OTHER, SELFPAY ==
--- NOTE | 2024-04-07 12:37 | MHC.PC.OV ---
Vital Signs 04/07/24 12:38 04/07/24 13:07 Height 5 ft 6 in Weight 249 lb BMI 40.2 BP 140/86 H 130/66 Blood Pressure Location Lt brachial Lt brachial Position Sitting Sitting Pulse 82 Pulse Source Pulse Oximeter Pulse Oximetry (%) 96 Oxygen Delivery Method Room Air Intake Visit Reasons: DM Follow Up Customer Care Consultant Required: No Accompanied by: Self / Same As Patient Allergies lisinopril [LISINOPRIL] Allergy (Unknown, Verified 04/07/24 12:38) COUGH Sulfa (Sulfonamide Antibiotics) Adverse Reaction (Intermediate, Verified 04/07/24 12:38) Nausea Tobacco use date assessed: 10/21/23 Fall risk assessment: No Falls in past year Last assessed Fall Risk: 04/07/24 Dental Screening Dental Screen Date: 10/02/23 HPI DM Follow Up HPI Details 88-year-old morbidly obese female with hypothyroidism, obstructive sleep apnea GERD hypertension hypercholesterolemia diabetes mellitus history of CVA coming in for follow-up. Last seen in October having rectal bleeding. Blood work January hemoglobin A1c of 7.2 normal sodium potassium BUN creatinine blood sugar at that time was 179 normal calcium EGFR of 84 liver function within normal limits thyroid normal. Patient is up-to-date with Podiatry. no more bleeding episode. [facility] Medical History (Updated 04/07/24 @ 13:18 by Luzma Galindo MD) Osteoarthritis Type 2 diabetes mellitus with hyperglycemia Pulmonary nodule Asthma Obesity Hypercholesterolemia Hypertension GERD (gastroesophageal reflux disease) Urge incontinence Obstructive sleep apnea Thrombocytopenia Vitamin D deficiency Insomnia Hypothyroidism Surgical History (Updated 06/26/20 @ 12:05 by Joanne Mascorro) History of bilateral cataract extraction History of tonsillectomy History of total abdominal hysterectomy and bilateral salpingo-oophorectomy History of appendectomy History of cholecystectomy History of knee replacement procedure of right knee History of left knee replacement Family History (Updated 10/31/22 @ 12:45 by Karen Tejeda CMA) Father Myocardial infarction Hypertension CVD (cardiovascular disease) Mother Hypertension Diabetes Cancer Brother Stroke Diabetes Sister Stroke Diabetes Paternal Uncle Myocardial infarction Social History (Updated 03/16/21 @ 14:13 by Luzma Galindo MD) Housing: Apartment Alcohol intake: never Patient Tobacco Use Status: Former Tobacco user Tobacco use type: Cigarette Years Smoked: stopped 1960 e-Cigarette/Vaping Use: Never Used Second Hand Smoke Exposure: No service: No Current occupational status: retired Cognitive needs: No Hearing needs: No Vision needs: Yes Questionnaire PHQ-9 Over the last 2 weeks, how often have you been bothered by any of the following problems? 1. Little interest or pleasure in doing things: not at all 2. Feeling down, depressed, or hopeless: not at all 3. Trouble falling or staying asleep, or sleeping too much: not at all 4. Feeling tired or having little energy: not at all 5. Poor appetite or overeating: not at all 6. Feeling bad about yourself - or that you are a failure or have let yourself or your family down: not at all 7. Trouble concentrating on things, such as reading the newspaper or watching television: not at all 8. Moving or speaking so slowly that other people could have noticed. Or the opposite - being so fidgety or restless that you have been moving around a lot more than usual: not at all 9. Thoughts that you would be better off or of hurting yourself in some way: not at all Total score: 0 Depression Screening Interpretation: Negative Depression Screening Done: Yes Source: Developed by Drs. Lico Chand, Bang Pickering and colleagues, with an educational maribell from [employer]. Thrive Questionnaire Date Thrive assessed: 10/02/23 Are you currently unemployed and looking for a job?: No AUDIT C Alcohol Use Questionnaire (AUDIT-C) 1. How often do you have a drink containing alcohol?: Never 2. How many drinks containing alcohol do you have on a typical day when you are drinking?: 1 or 2 (0) 3. How often do you have six or more drinks on one occasion?: Never Total Score: 0 ROYAL-7 AMB Questionnaire ROYAL-7 Date ROYAL - 7 assessed: 10/02/23 Source: Developed by Drs. Lico Chand, Bang Pickering and colleagues, with an educational maribell from [employer]. Physical exam (Primary Care) Vital Signs: Last Vital Signs Pulse 82 04/07/24 12:38 BP 140/86 H 04/07/24 12:38 Pulse Ox 96 04/07/24 12:38 Oxygen Delivery Method Room Air 04/07/24 12:38 BMI result Body Mass Index 40.2 Tobacco/Smoking Status: Tobacco use Status Tobacco use date assessed 10/21/23 04/07/24 12:37 Patient Tobacco Use Status Former Tobacco user 04/07/24 12:37 Tobacco use type Cigarette 04/07/24 12:37 e-Cigarette/Vaping Use Never Used 04/07/24 12:37 PHQ-9: PHQ-9 Score PHQ-9: Total score 0 04/07/24 12:48 Depression Screening Interpretation: Negative Thrive Assessment: Date of Thrive Assessment Date Thrive assessed 10/02/23 04/07/24 12:37 Const General: alert; No acute distress Eyes Conjunctivae: conjunctivae normal Resp Auscultation: clear to auscultation bilaterally Cardio Rate: regular rate Rhythm: regular rhythm GI Inspection: Yes normal to inspection Extrem General: Yes normal to inspection and No edema Results AMB Hemoglobin A1c AMB Hemoglobin A1c 7.2 % Last Edit by Abby Mora CMA on 04/07/24 12:58 Results Reviewed Results Reviewed: Laboratory Last Values Hgb A1c (Clinic) 7.2 % (4.0-6.0) H 04/07/24 12:47 Assessment and Plan Assessment & Plan (1) Type 2 diabetes mellitus with hyperglycemia: Code(s): E11.65 - Type 2 diabetes mellitus with hyperglycemia Qualifiers: 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 Hemoglobin A1c goal of less than 7.0 patient is on Lantus 20 units once a day metformin a 1000 mg twice a day (2) Obstructive sleep apnea: Comment: October 2013RESMED nasal mask medium size 6 cm water humidified air Code(s): G47.33 - Obstructive sleep apnea (adult) (pediatric) Plan: Continue to use the CPAP more than 4 hours a night and benefits from this. (3) Hypothyroidism: Code(s): E03.9 - Hypothyroidism, unspecified Qualifiers: Hypothyroidism type: acquired Qualified Code(s): E03.9 - Hypothyroidism, unspecified Plan: Continue with thyroid medication (4) GERD (gastroesophageal reflux disease): Code(s): K21.9 - Gastro-esophageal reflux disease without esophagitis Qualifiers: Esophagitis presence: without esophagitis Qualified Code(s): K21.9 - Gastro-esophageal reflux disease without esophagitis Plan: Avoid the foods that causes that usually spicy foods, tomato products, juices, coffee, soda and foods that your sensitive to. After eating do not lie down, allow 3-4 hours before in lie down. And keep the head of bed above 30 degrees to avoid the acid from going up. (5) Hypertension: Comment: Echocardiogram August 2019 60-65% nuclear stress test negative September 2019 Code(s): I10 - Essential (primary) hypertension Qualifiers: Hypertension type: essential hypertension Qualified Code(s): I10 - Essential (primary) hypertension Plan: Continue with blood pressure medication. Decrease salt intake and exercise losartan 100 mg once a day (6) Hypercholesterolemia: Code(s): E78.00 - Pure hypercholesterolemia, unspecified Plan: Avoid fried foods, chicken skin, eggs, butter margarine, pastries and meat. Be it pork or beef they have a lot of cholesterol 10/08/2023 last blood work on simvastatin 40 mg once a day (7) Obesity: Code(s): E66.9 - Obesity, unspecified Qualifiers: Obesity type: due to excess calories Obesity classification: adult class 3 (BMI >= 40) Serious obesity comorbidity presence: with serious comorbidity Body mass index: BMI 40.0-44.9 Qualified Code(s): E66.01 - Morbid (severe) obesity due to excess calories; Z68.41 - Body mass index [BMI]40.0-44.9, adult Plan: Diet and exercise (8) Rectal bleeding: Code(s): K62.5 - Hemorrhage of anus and rectum Plan: resolved (9) Cough: Code(s): R05.9 - Cough, unspecified Plan: chest xray requested Orders: Orders XR chest 2V Today R05.9 - Cough, unspecified Complete Blood Count Auto Diff 6 Months E11.65 - Type 2 diabetes mellitus with hyperglycemia, Z79.4 - terminal gauger (current) use of insulin Comprehensive Met. Panel 6 Months E11.65 - Type 2 diabetes mellitus with hyperglycemia, Z79.4 - terminal gauger (current) use of insulin Free T4 (Free Thyroxine) 6 Months E11.65 - Type 2 diabetes mellitus with hyperglycemia, Z79.4 - jail (current) use of insulin Microalbumin, Random (w Creat) 6 Months E11.65 - Type 2 diabetes mellitus with hyperglycemia, Z79.4 - jail (current) use of insulin Creatinine Urine 6 Months E11.65 - Type 2 diabetes mellitus with hyperglycemia, Z79.4 - terminal gauger (current) use of insulin Lipid Panel 6 Months E11. - Type 2 diabetes mellitus with hyperglycemia, E78.00 - Pure hypercholesterolemia, unspecified, Z79.4 - terminal gauger (current) use of insulin Vitamin B12 and Folate 6 Months E11. - Type 2 diabetes mellitus with hyperglycemia, Z79.4 - jail (current) use of insulin Vitamin D 25-OH Total 6 Months E11. - Type 2 diabetes mellitus with hyperglycemia, Z79.4 - jail (current) use of insulin AMB Hemoglobin A1c Today . - Type 2 diabetes mellitus with hyperglycemia, Z79.4 - terminal gauger (current) use of insulin Thyroid Stimulating Hormone 6 Months E11. - Type 2 diabetes mellitus with hyperglycemia, Z79.4 - jail (current) use of insulin Hemoglobin A1c 6 Months E11.65 - Type 2 diabetes mellitus with hyperglycemia, Z79.4 - terminal gauger (current) use of insulin Medications: New mirabegron ER (Myrbetriq) 25 mg PO DAILY 30 tabs 2RF N39.41 - Urge incontinence [ADULT DIAPERS XL] As directed 30 ea 12RF N39.41 - Urge incontinence Refilled levothyroxine 88 mcg PO QAM 90 tabs 3RF gabapentin 100 mg PO TID 90 days 270 caps 3RF I63.9 - Cerebral infarction, unspecified Discontinued solifenacin Discontinued Reason: Change Referral Type 10 mg PO DAILY 90 days 90 tabs 3RF N39.41 - Urge incontinence Coding Level of Care Code Est Pt Level 4 (18894) Diagnoses Type 2 diabetes mellitus with hyperglycemia, with long-term current use of insulin E11.65; Z79.4 Diabetes mellitus assisted insulin use: with intermodal owner operator truck driver use Obstructive sleep apnea G47.33 Acquired hypothyroidism E03.9 Hypothyroidism type: acquired Gastroesophageal reflux disease without esophagitis K21.9 Esophagitis presence: without esophagitis Essential hypertension I10 Hypertension type: essential hypertension Hypercholesterolemia E78.00 Class 3 severe obesity due to excess calories with serious comorbidity and body mass index (BMI) of 40.0 to 44.9 in adult E66.01; Z68.41 Obesity type: due to excess calories Obesity classification: adult class 3 (BMI >= 40) Serious obesity comorbidity presence: with serious comorbidity Body mass index: BMI 40.0-44.9 Rectal bleeding K62.5 Cough R05.9
[2024-04-07 12:38] VITALS: BP 140/86; PULSE 82; O2SAT 96; BMI 40.2
[2024-04-07 13:07] VITALS: BP 130/66
== END 2024-04-07 13:26 | disposition home or self-care (01) ==
PROVIDERS: PCP Internal Medicine; Visit Provider Internal Medicine
DX: E11.65 Type 2 diabetes mellitus with hyperglycemia (principal); Z79.4 Long term (current) use of insulin; E66.01 Morbid (severe) obesity due to excess calories; Z68.41 Body mass index [BMI] 40.0-44.9, adult; G47.33 Obstructive sleep apnea (adult) (pediatric); E03.9 Hypothyroidism, unspecified; K21.9 Gastro-esophageal reflux disease without esophagitis; I10 Essential (primary) hypertension; E78.00 Pure hypercholesterolemia, unspecified; K62.5 Hemorrhage of anus and rectum; R05.9 Cough, unspecified

== ENCOUNTER → 2024-04-07 12:36 | Outpatient (BNVA) | payer OTHER, SELFPAY | PROVIDERS: PCP Internal Medicine; Visit Provider Internal Medicine | DX: E11.65 Type 2 diabetes mellitus with hyperglycemia (principal); E03.9 Hypothyroidism, unspecified; K21.9 Gastro-esophageal reflux disease without esophagitis; I10 Essential (primary) hypertension; Z79.4 Long term (current) use of insulin | CPT/HCPCS: 83036; 99212 ==

== ENCOUNTER 2024-04-09 14:36 | Outpatient (REF) | payer OTHER, SELFPAY ==
--- NOTE | ~2024-04-09 | XR_ITS ---
EXAMINATION: XR CHEST CLINICAL INFORMATION: R05.9 - Cough, unspecified COMPARISON: None available. TECHNIQUE: 2 views of the chest were obtained. FINDINGS: The cardiac, hilar, and mediastinal contours are normal. The lungs are well expanded and clear bilaterally. There is no pneumothorax or pleural effusion. There is no focal osseous or soft tissue abnormality. XR/XR chest 2V IMPRESSION: No active disease. No interval change. Electronically signed by: Akhil Stewart MD 06/20/2024 10:38 PM [facility]
== END 2024-04-09 14:37 | disposition home or self-care (01) ==
LOC: HO.XRAY 14:36
PROVIDERS: PCP Internal Medicine; Visit Provider Internal Medicine
DX: R05.9 Cough, unspecified (principal)
CPT/HCPCS: 71046

== ENCOUNTER → 2024-04-09 14:41 | Outpatient (BNV) | payer OTHER, SELFPAY | PROVIDERS: PCP Internal Medicine; Visit Provider Radiology Diagnostic Radiology | DX: R05.9 Cough, unspecified (principal) | CPT/HCPCS: 71046 ==

== ENCOUNTER 2024-10-06 12:50 | Outpatient (AMB) | payer OTHER, SELFPAY ==
--- NOTE | 2024-10-06 13:05 | A.OFFPC_ITS ---
Vital Signs 10/06/24 13:08 Height 5 ft 6 in Weight 246 lb 6 oz BMI 39.8 BP 134/74 Blood Pressure Location Rt brachial Position Sitting Pulse 85 Pulse Source Pulse Oximeter Temp 97.3 F Temp Source Temporal Artery Scan Pulse Oximetry (%) 95 Oxygen Delivery Method Room Air Intake Visit Reasons: DM Intake Note: Patient is here to follow up on DM. Electrical Manager Required: No Survey Research Analyst: Not Required per policy Accompanied by: Self / Same As Patient Allergies lisinopril [LISINOPRIL] Allergy (Unknown, Verified 10/06/24 13:07) COUGH Sulfa (Sulfonamide Antibiotics) Adverse Reaction (Intermediate, Verified 10/06/24 13:07) Nausea Tobacco use date assessed: 10/06/24 Fall risk assessment: No Falls in past year Last assessed Fall Risk: 10/06/24 Dental Screening Dental Screen Date: 10/06/24 Did you have a dental visit in the last 12 months?: Yes Did you have a dental problem in the last 6 months where you did not have access to dental care?: No Was dental information given to patient?: Patient has dentist [facility] Medical History (Updated 10/06/24 @ 13:21 by Luzma Galindo MD) Osteoarthritis Type 2 diabetes mellitus with hyperglycemia Pulmonary nodule Asthma Obesity Hypercholesterolemia Hypertension GERD (gastroesophageal reflux disease) Urge incontinence Obstructive sleep apnea Thrombocytopenia Vitamin D deficiency Insomnia Hypothyroidism Surgical History History of bilateral cataract extraction History of tonsillectomy History of total abdominal hysterectomy and bilateral salpingo-oophorectomy History of appendectomy History of cholecystectomy History of knee replacement procedure of right knee History of left knee replacement Family History Father Myocardial infarction Hypertension CVD (cardiovascular disease) Mother Hypertension Diabetes Cancer Brother Stroke Diabetes Sister Stroke Diabetes Paternal Uncle Myocardial infarction Social History Housing: Apartment Alcohol intake: never Patient Tobacco Use Status: Former Tobacco user Tobacco use type: Cigarette Years Smoked: stopped 1960 e-Cigarette/Vaping Use: Never Used Second Hand Smoke Exposure: Yes service: No Current occupational status: retired Cognitive needs: No Hearing needs: No Vision needs: Yes (Glasses) Questionnaire PHQ-9 Over the last 2 weeks, how often have you been bothered by any of the following problems? 1. Little interest or pleasure in doing things: not at all 2. Feeling down, depressed, or hopeless: not at all 3. Trouble falling or staying asleep, or sleeping too much: not at all 4. Feeling tired or having little energy: not at all 5. Poor appetite or overeating: not at all 6. Feeling bad about yourself - or that you are a failure or have let yourself or your family down: not at all 7. Trouble concentrating on things, such as reading the newspaper or watching television: not at all 8. Moving or speaking so slowly that other people could have noticed. Or the opposite - being so fidgety or restless that you have been moving around a lot more than usual: not at all 9. Thoughts that you would be better off or of hurting yourself in some way: not at all Total score: 0 Depression Screening Interpretation: Negative Depression Screening Done: Yes Source: Developed by Drs. Lico Chand, Alisson Hill, Bang Matson and colleagues, with an educational maribell from [employer]. Thrive Questionnaire Date Thrive assessed: 10/06/24 I am a: Patient What is your living situation today?: I have a steady place to live Within the past 12 months, did the food you bought not last and you didn't have the money to get more?: Never true Within the past 12 months, did you worry whether your food would run out before you got money to buy more?: Never true Do you have trouble paying for medicines?: No Do you have trouble getting transportation to medical appointments?: No Do you have trouble paying your heating and electricity bill?: No Do you have trouble taking care of your child, family member or friend?: No Do you have trouble with day-to-day activities such as bathing, preparing meals, shopping, managing finances, etc.?: No Are you currently unemployed and looking for a job?: No Are you interested in more education?: No Please select the resources that you would like help with: None Currently or been in a relationship where the following occur: No concerns reported THRIVE Score: 0 AUDIT C Alcohol Use Questionnaire (AUDIT-C) 2. How many drinks containing alcohol do you have on a typical day when you are drinking?: 1 or 2 3. How often do you have six or more drinks on one occasion?: Never Total Score: 0 ROYAL-7 AMB Questionnaire ROYAL-7 Date ROYAL - 7 assessed: 10/06/24 Feeling nervous, anxious, or on edge: 0 = Not at all Not being able to stop or control worryin = Not at all Worrying too much about different things: 0 = Not at all Trouble relaxin = Not at all Being so restless that it is hard to sit still: 0 = Not at all Becoming easily annoyed or irritable: 0 = Not at all Feeling afraid as if something awful might happen: 0 = Not at all Total ROYAL-7 score (0-4 normal; 5-9 mild; 10-14 moderate; 15-21 severe): 0 Source: Developed by Drs. Lico Chand, Alisson Hill, Bang Matson and colleagues, with an educational maribell from [employer]. Physical exam (Primary Care) Vital Signs: Last Vital Signs Temp 97.3 F 10/06/24 13:08 Pulse 85 10/06/24 13:08 BP 134/74 10/06/24 13:08 Pulse Ox 95 10/06/24 13:08 Oxygen Delivery Method Room Air 10/06/24 13:08 BMI result Body Mass Index 39.8 Tobacco/Smoking Status: Tobacco use Status Tobacco use date assessed 10/06/24 10/06/24 13:18 Patient Tobacco Use Status Former Tobacco user 10/06/24 13:06 Tobacco use type Cigarette 10/06/24 13:06 e-Cigarette/Vaping Use Never Used 10/06/24 13:06 PHQ-9: PHQ-9 Score PHQ-9: Total score 0 10/06/24 13:44 Depression Screening Interpretation: Negative Thrive Assessment: Date of Thrive Assessment Date Thrive assessed 10/06/24 10/06/24 13:06 Currently or been in a relationship where the following occur: No concerns reported Const General: alert; No acute distress Eyes Conjunctivae: conjunctivae normal Resp Auscultation: clear to auscultation bilaterally Cardio Rate: regular rate Rhythm: regular rhythm GI Inspection: Yes normal to inspection Extrem General: Yes normal to inspection and No edema Results AMB Hemoglobin A1c AMB Hemoglobin A1c 6.7 % Last Edit by LIGIA Menard on 10/06/24 13:21 Immunizations Boostrix Tdap 2.5 Lf unit-8 mcg-5 Lf/0.5 mL intramuscular syringe Performing Provider: Luzma Galindo MD [place] [facility] [facility] [place] [facility] Administered by: Karen Llamas CMA on 10/06/24 13:42 Dose Route Admin Location Dispensed Lot Number Expiration Date NDC Tourist Information Officer 0.5 mL IM Right Deltoid 0.5 mL [id number] 01/01/27 [id number] Montage Talent VIS Given Date VIS Provided VIS Publication Date 10/06/24 Single Vaccine 24 Eligibility Eligibility Date Funding Source Not [facility] Eligible 10/06/24 Private Results Reviewed Results Reviewed: Laboratory Last Values Hgb A1c (Clinic) 6.7 % (4.0-6.0) H 10/06/24 13:07 Coding Level of Care Code Est Pt Level 4 (39308) Complex EM visit Add On G2211 Diagnoses Type 2 diabetes mellitus with hyperglycemia, with long-term current use of insulin E11.65; Z79.4 Diabetes mellitus intermediate accountant insulin use: with intermediate accountant use Class 3 severe obesity due to excess calories with serious comorbidity and body mass index (BMI) of 40.0 to 44.9 in adult E66.01; Z68.41 Body mass index: BMI 40.0-44.9 Obesity classification: adult class 3 (BMI >= 40) Obesity type: due to excess calories Serious obesity comorbidity presence: with serious comorbidity Essential hypertension I10 Hypertension type: essential hypertension Hypercholesterolemia E78.00 Gastroesophageal reflux disease without esophagitis K21.9 Esophagitis presence: without esophagitis Obstructive sleep apnea G47.33 Acquired hypothyroidism E03.9 Hypothyroidism type: acquired Assessment & Plan Assessment & Plan (1) Type 2 diabetes mellitus with hyperglycemia: Comment: Dr. Vu, podiatry Code(s): E11.65 - Type 2 diabetes mellitus with hyperglycemia Category: Medical Qualifiers: Diabetes mellitus intermediate accountant insulin use: with skilled nursing use Qualified Code(s): E11.65 - Type 2 diabetes mellitus with hyperglycemia; Z79.4 - intermediate accountant (current) use of insulin Plan: Decrease the amount of carbohydrate intake, pasta, bread, rice and potatoes are all sugar and that is aside from all the sweet stuff, remember that fruits are good but they are Sweet also. Hemoglobin A1c goal of less than 7.0. Patient on Lantus 20 units once a day metformin a 1000 mg twice a day patient is reminded about the blood work. (2) Obesity: Code(s): E66.9 - Obesity, unspecified Category: Medical Qualifiers: Body mass index: BMI 40.0-44.9 Obesity classification: adult class 3 (BMI >= 40) Obesity type: due to excess calories Serious obesity comorbidity presence: with serious comorbidity Qualified Code(s): E66.01 - Morbid (severe) obesity due to excess calories; Z68.41 - Body mass index [BMI]40.0-44.9, adult Plan: Diet and exercise (3) Hypertension: Comment: Echocardiogram August 2019 60-65% nuclear stress test negative September 2019 Code(s): I10 - Essential (primary) hypertension Category: Medical Qualifiers: Hypertension type: essential hypertension Qualified Code(s): I10 - Essential (primary) hypertension Plan: Continue with blood pressure medication. Decrease salt intake and exercise on losartan 100 mg once a day (4) Hypercholesterolemia: Code(s): E78.00 - Pure hypercholesterolemia, unspecified Category: Medical Plan: Avoid fried foods, chicken skin, eggs, butter margarine, pastries and meat. Be it pork or beef they have a lot of cholesterol LDL goal of less than 100 and tr iglyceride of less than 150 on simvastatin 40 mg at bedtime (5) GERD (gastroesophageal reflux disease): Code(s): K21.9 - Gastro-esophageal reflux disease without esophagitis Category: Medical Qualifiers: Esophagitis presence: without esophagitis Qualified Code(s): K21.9 - Gastro-esophageal reflux disease without esophagitis Plan: Avoid the foods that causes that usually spicy foods, tomato products, juices, coffee, soda and foods that your sensitive to. After eating do not lie down, allow 3-4 hours before in lie down. And keep the head of bed above 30 degrees to avoid the acid from going up. (6) Obstructive sleep apnea: Comment: October 2013RESMED nasal mask medium size 6 cm water humidified air Code(s): G47.33 - Obstructive sleep apnea (adult) (pediatric) Category: Medical Plan: Continue to use the CPAP more than 4 hours a night and benefits from this (7) Hypothyroidism: Code(s): E03.9 - Hypothyroidism, unspecified Category: Medical Qualifiers: Hypothyroidism type: acquired Qualified Code(s): E03.9 - Hypothyroidism, unspecified Plan: Continue with thyroid medication Plan History of Present Illness The patient is an 89-year-old female presenting with a follow-up for chronic medical conditions. She has a history of Type 2 Diabetes Mellitus, with the last HbA1c recorded at 7.2%. Her diabetes management includes medications such as insulin glargine and metformin, alongside lifestyle changes. The patient is also treated for hypothyroidism, obstructive sleep apnea with CPAP therapy, GERD, hypertension with losartan, and hypercholesterolemia with simvastatin. She reports experiencing fatigue and left-sided joint pain, with intermittent muscular aches not associated with redness or swelling. Hip soreness may relate to pre-existing foot problems, suggesting possible connection to posture or ambulation. Health Maintenance - CPAP use compliance emphasized; patient uses it every night - Recommendations for vaccinations discussed, including Tdap, COVID, flu, RSV, pneumonia, and shingles vaccines - Cholesterol goal of LDL under 100 mg/dL; triglyceride goal under 150 mg/dL, previously tested in September - Blood pressure monitored and maintained with recent records reported to be satisfactory - Emphasis on regular vaccination and awareness that vaccines don't confer invincibility - Routine screening for diabetic retinopathy with ophthalmology involvement, no retinopathy noted - Osteoporosis management ongoing; monitoring for fracture prevention - Diabetes monitoring through HbA1c testing, with a target below 7.0% Social History - Reports regular use of a cane and experiencing mechanical loading impacts post-exercise - Monitoring of weight, with efforts noted in weight management - Reports active engagement with health management using digital technology Review of Systems - General: Reports fatigue - Musculoskeletal: Reports joint pain, particularly in the left arm - Urinary: Reports nocturia - Respiratory: Denies significant breathing issues during follow-up Physical Exam Results - Labs: Hemoglobin A1c at 7.2% (March 2024), mild thrombocytopenia noted, normal WBC and electrolytes - Imaging: Chest X-ray (March), negative results - Ophthalmology Review (May): No retinopathy Plan 1. 0% through ongoing use of insulin glargine and metformin. Appropriate management for hypertension and hypercholesterolemia remains critical, with particular attention to blood pressure control and lipid goals. Emphasizing the use of CPAP therapy supports her management plan for obstructive sleep apnea, while her thyroid condition appears stable on existing treatment. Evaluating her musculoskeletal symptoms and adjusting activity levels could alleviate joint discomfort, with consideration of her podiatric history informing this assessment. As such, continued therapy for osteoporosis is imperative to mitigate fracture risk, alongside maintaining updated vaccinations, including the notable Tdap administration today. I reiterate the necessity of protective measures against prevalent infections and recognition that while vaccines greatly reduce risk, they do not offer complete immunity.: Patient was informed and verbally consented to the use of an ambient scribe for clinic note documentation during this visit. Discussion Notes In my discussion with the patient, I reviewed her chronic condition management plans and emphasized the importance of maintaining tight blood sugar control, aimed at reducing her HbA1c to below 7.0%. I offered an overview of managing hypertension and hypercholesterolemia, linked to cardiovascular disease risk, with appropriate ongoing treatments. The decision to continue CPAP therapy was reiterated in supporting her respiratory function, enhancing the quality of sleep, and subsequently reducing morbidity associated with obstructive sleep apnea. The Tdap vaccine was advised as a more protective measure than standalone tetanus, factoring in her eligibility through insurance. We discussed necessary precautions amidst infectious diseases, underscoring the utility of vaccines, and safe practices in exposure settings. Consent for the vaccine was obtained following a brief explanation of the benefits, risks, and rationale. Patient Instructions - Continue medications as prescribed and manage diabetes attentively - Follow the set target for HbA1c and monitor blood glucose levels regularly - Stay on track with blood pressure and cholesterol medications - Regularly use CPAP as done and monitor for benefits - Stay active but consider using support for mobility like a cane if needed - Maintain current vaccination schedule, noting the Tdap received today - Monitor joint pain and maintain supportive footwear due to foot concerns - Implement protective measures against seasonal infections by wearing masks and maintaining hygiene standards Orders: Orders AMB Hemoglobin A1c Today E11.65 - Type 2 diabetes mellitus with hyperglycemia, Z79.4 - intermediate accountant (current) use of insulin TDaP Immunization Today Z23 - Encounter for immunization
[2024-10-06 13:08] VITALS: BP 134/74; PULSE 85; TEMP 36.3; O2SAT 95; BMI 39.8
--- OUTSIDE RECORDS SUMMARY | 2024-10-06 15:12 | XMS_ITS | Patient Health Record ---
[facility] Address [address] [place] [address] Care Team Providers Care Waterproofing Supervisor Name Role Phone Luzma Galindo Primary Care Provider Unavailabl e Black, Gabriella Unavailable [phone] Allergies Allergen (clinical drug ingredient) Drug/Non Drug Allergy documented on EMR Reaction Allergy Type Onset Date Status lisinopril Lisinopril Unknown Drug Allergy Activ e Results Component Value Reference Range Notes X ray : Foot, left 3V Reviewed date:01/15/2024 01:32:21 PM Interpretation:See Examination above Performing Lab: Notes/Report: See Examination above X ray : Foot, right 3V Reviewed date:01/15/2024 01:32:30 PM Interpretation:See Examination above Performing Lab: Notes/Report: See Examination above HEMOGLOBIN A1C (GLYCOHEMOGLO BIN) Reviewed date:08/05/2024 09:11:33 AM Interpretation: Performing Lab: Notes/Report: HEMOGLOBIN A1C % (HH) 7.1 HEMOGLOBIN A1C (GLYCOHEMOGLO BIN) Reviewed date:04/22/2024 03:04:17 PM Interpretation: Performing Lab: Notes/Report: TOTAL HEMOGLOBIN (HGBA1C) 7.1 Reason For Referral No Information Medications Medication SIG (Take, Route, Frequency, Duration) Notes Start Date End Date Status Losartan Potassium 100 MG TAKE 1 TABLET BY MOUTH EVERY DAY Oral for 90 Days Active metFORMIN HCl 500 MG 1000 MG (2 X 500 MG ) ORALLY 2 TIMES A DAY FOR 90 DAYS Oral for 90 Days Active Insulin Glargine 11/14/2023 Ac tive Levothyroxine Sodium 88 MCG TAKE 1 TABLE T BY MOUTH EVERY DAY IN THE MORNING Oral for 90 Days Active Simvastatin 40 MG TAKE 1 TABLET BY CELENA TH EVERY DAY AT BEDTIME Oral for 90 Days Active PreserVision AREDS A ctive Copper Active Cyclobenzaprine HCl 5 MG TAKE 1 TABLET O RALLY 3 TIMES A DAY NEEDED FOR MUSCLE SPASM FOR 30 DAYS Oral for 10 Days PRN Active One Touch Delica Lancets Active Extra Depth Orthopedic Shoes (1 Pair) with Customized Heat Molded Multidensity Innersoles (3 Pair) as directed Dx: NIDDM/Polyneuropathy (E11.42), Hammertoe Foot Deformity (M20.41,M20.42), Preulcerative Skin Lesion(s) (L85.1 08/05/2024 Active Fluticasone Propionate Active Gabapentin 100 MG TAKE 1 CAPSULE BY MO UTH THREE TIMES A DAY Oral for 90 Days Active Cyanocobalamin Activ e Fexofenadine HCl Act katrin Vitamin E Active Vitamin C Active Zinc Active Multivitamin Active Amoxicillin 500 MG TAKE 4 CAPSULES BY M OUT AT ONE TIME 1 HOUR BEFORE PROCEDURE Oral for 2 Days Active Vitamin A Active [place] 3 Active Cholecalciferol Acti ve Solifenacin Succinate 10 MG TAKE 1 TABLE T BY MOUTH EVERY DAY Oral for 90 Days Active Voltaren 1 % as directed Externally 01/15/2024 Active Aspirin Active Biotin Active Immunizations Vaccine Route Administration Date Status Comme nts Influenza Unknown 04/20/2023 Administered Social History Tobacco Use: Social History Observation Description Date Details (start date - stop date) Never Smoker NA - NA Alcohol Screen Question Answer Notes Did you have a drink containing alcohol in the p ast year? Yes Points 0 Interpretation Negative Tobacco use other than smoking: Question Answer Notes Are you an other tobacco user? No Tobacco Control (Standard) Question Answer Notes Tobacco use: Nonsmoker Problems Problem Type SNOMED Code ICD Code Onset Dates Problem Status W/U Status Risk Notes Problem Acquired hammer toe of right foot (1208410901266204 ) Other hammer toe(s) (acquired), right foot (M20.41) Active confirmed Problem Acquired hammer toe of left foot (6393536819605998 ) Other hammer toe(s) (acquired), left foot (M20.42) Active confirmed Problem Polyneuropathy due to type 2 diabetes mellitus (317497982) Type 2 diabetes mellitus with diabetic polyneuropathy (E11.42) Active confirmed Problem Arthritis (2513059) Arthritis (M19.90) Active confirmed Problem Osteoarthritis of midtarsal joint of left foot (3303087173537731 ) Osteoarthritis of midtarsal joint of left foot (M19.072) Active confirmed Problem Osteoarthritis of midtarsal joint of right foot (8393633892156293 ) Osteoarthritis of midtarsal joint of right foot (M19.071) Active confirmed Vital Signs Blood pressure diastolic 68 mm Hg 08/05/2024 Height 5 ft 5in in 08/05/2024 Blood pressure systolic 138 mm Hg 08/05/2024 Weight 248 lbs 08/05/2024 BMI 41.26 kg/m2 08/05/2024 Procedures Procedure Date Ordered Date Performed Result Body Sit e 00830-LCWH SKIN LESIONS, 2 TO 4 01/15/2024 N/A O5107-QUQTREBG DYSTROPHIC NAILS ANY # 01/15/2024 N/A 08584-AMWO SKIN LESIONS, 2 TO 4 04/22/2024 N/A 45941, S2686-TXDSC/INJECT, JOINT/BURSA 04/22/2024 N/A J9928-YVQGUVHK DYSTROPHIC NAILS ANY # 04/22/2024 N/A 38099-TIQF SKIN LESIONS, 2 TO 4 08/05/2024 N/A Z0218-XYYFIKZZ DYSTROPHIC NAILS ANY # 08/05/2024 N/A Encounters Encounter Location Date Provider Diagnosis [address] [address] 01/15/2024 Gabriella Black Type 2 diabetes mellitus with diabetic polyneuropathy E11.42 ; Tinea unguium B35.1 ; Pain in left foot M79.672 ; Pain in left ankle and joints of left foot M25.572 ; Bursitis of left foot M77.52 ; Osteoarthritis of midtarsal joint of left foot M19.072 ; Pain in right foot M79.671 ; Pain in right ankle and joints of right foot M25.571 ; Bursitis of right foot M77.51 ; Osteoarthritis of midtarsal joint of right foot M19.071 ; Arthritis M19.90 ; Metatarsalgia, left foot M77.42 and Metatarsalgia, right foot M77.[address] [address] 04/22/2024 Gabriella Delvalle Type 2 diabetes mellitus with diabetic polyneuropathy E11.42 ; Tinea unguium B35.1 ; Pain in left foot M79.672 ; Pain in left ankle and joints of left foot M25.572 ; Bursitis of left foot M77.52 ; Osteoarthritis of midtarsal joint of left foot M19.072 ; Pain in right foot M79.671 ; Pain in right ankle and joints of right foot M25.571 ; Bursitis of right foot M77.51 ; Osteoarthritis of midtarsal joint of right foot M19.071 ; Arthritis M19.90 ; Metatarsalgia, left foot M77.42 and Metatarsalgia, right foot M77.[address] [address] 08/05/2024 Gabriella Delvalle Type 2 diabetes mellitus with diabetic polyneuropathy E11.42 ; Other hammer toe(s) (acquired), right foot M20.41 ; Tinea unguium B35.1 ; Pain in left foot M79.672 ; Pain in left ankle and joints of left foot M25.572 ; Bursitis of left foot M77.52 ; Osteoarthritis of midtarsal joint of left foot M19.072 ; Pain in right foot M79.671 ; Pain in right ankle and joints of right foot M25.571 ; Bursitis of right foot M77.51 ; Osteoarthritis of midtarsal joint of right foot M19.071 ; Arthritis M19.90 ; Metatarsalgia, left foot M77.42 ; Metatarsalgia, right foot M77.41 and Other hammer toe(s) (acquired), left foot M20.[address] [address] 11/14/2023 Gabriella Delvalle Assessments Encounter Date Diagnosis (ICD Code) Assessment Notes Treatment Notes Treatment Clinical Notes Section Notes 01/15/2024 Type 2 diabetes mellitus with diabetic polyneuropathy (ICD-10 - E11.42) 01/15/2024 Tinea unguium (ICD-10 - B35.1) 04/22/2024 Type 2 diabetes mellitus with diabetic polyneuropathy (ICD-10 - E11.42) 08/05/2024 Other hammer toe(s) (acquired), right foot (ICD-10 - M20.41) Patient Educated with: DIABETIC FOOT CARE INSTRUCTIONS. pdf (DIABETIC FOOT CARE INSTRUCTIONS. pdf) 08/05/2024 Type 2 diabetes mellitus with diabetic polyneuropathy (ICD-10 - E11.42) 08/05/2024 Tinea unguium (ICD-10 - B35.1) 04/22/2024 Tinea unguium (ICD-10 - B35.1) 01/15/2024 Pain in left foot (ICD-10 - M79.672) 01/15/2024 Pain in left ankle and joints of left foot (ICD-10 - M25.572) 04/22/2024 Pain in left foot (ICD-10 - M79.672) 08/05/2024 Pain in left foot (ICD-10 - M79.672) 08/05/2024 Pain in left ankle and joints of left foot (ICD-10 - M25.572) 04/22/2024 Pain in left ankle and joints of left foot (ICD-10 - M25.572) 01/15/2024 Bursitis of left foot (ICD-10 - M77.52) 01/15/2024 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) 04/22/2024 Bursitis of left foot (ICD-10 - M77.52) 08/05/2024 Bursitis of left foot (ICD-10 - M77.52) 08/05/2024 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) 04/22/2024 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) Patient Educated with: INJECTIONTHER APY.pdf (INJECTIONTHE RAPY.pdf) 01/15/2024 Pain in right foot (ICD-10 - M79.671) 01/15/2024 Pain in right ankle and joints of right foot (ICD-10 - M25.571) 04/22/2024 Pain in right foot (ICD-10 - M79.671) 08/05/2024 Pain in right foot (ICD-10 - M79.671) 08/05/2024 Pain in right ankle and joints of right foot (ICD-10 - M25.571) 01/15/2024 Bursitis of right foot (ICD-10 - M77.51) 04/22/2024 Pain in right ankle and joints of right foot (ICD-10 - M25.571) 01/15/2024 Osteoarthritis of midtarsal joint of right foot (ICD-10 - M19.071) 04/22/2024 Bursitis of right foot (ICD-10 - M77.51) 08/05/2024 Bursitis of right foot (ICD-10 - M77.51) 08/05/2024 Osteoarthritis of midtarsal joint of right foot (ICD-10 - M19.071) 04/22/2024 Osteoarthritis of midtarsal joint of right foot (ICD-10 - M19.071) 01/15/2024 Arthritis (ICD-10 - M19.90) 01/15/2024 Metatarsalgia, left foot (ICD-10 - M77.42) 04/22/2024 Arthritis (ICD-10 - M19.90) 08/05/2024 Arthritis (ICD-10 - M19.90) 08/05/2024 Metatarsalgia, left foot (ICD-10 - M77.42) 01/15/2024 Metatarsalgia, right foot (ICD-10 - M77.41) 04/22/2024 Metatarsalgia, left foot (ICD-10 - M77.42) 04/22/2024 Metatarsalgia, right foot (ICD-10 - M77.41) 08/05/2024 Metatarsalgia, right foot (ICD-10 - M77.41) 08/05/2024 Other hammer toe(s) (acquired), left foot (ICD-10 - M20.42) Plan Of Treatment Pending Test Test Name Order Date 65860-HKVP SKIN LESIONS, 2 TO 4 01/15/20 24 76278-TZJM SKIN LESIONS, 2 TO 4 04/22/20 24 01553-NLHK SKIN LESIONS, 2 TO 4 08/05/19 25 , C2354-XUJCJ/INJECT, JOINT/BURSA 1 U0592-EKMPDUQV DYSTROPHIC NAILS ANY # B8024-KDXINRAB DYSTROPHIC NAILS ANY # U2330-SGLAILBZ DYSTROPHIC NAILS ANY # Next Appt Details Provider Name:Gabriella Delvalle , 11/11/2024 02:15:00 PM, [address] [place] [address], [phone], Insurance Providers Payer Name Payer Address Payer Phone Subscriber Number Group Number Insured Name Patient Relationship to Insured Coverage Start Date Coverage End Date [facility] [employer] Claims [address] [place] [address] [phone] [id number] Vanessa Rowan Self - patient is the insured Medical (General) History Medical History History ICD Code CAD (Cholesterol) Cataracts type II diabetes Gall bladder problems High blood pressure thyroid Measles Mumps Chicken pox Joint implants/screws Surgical History Surgery Date(Month/Year) appendectomy 06/1962 hysterectomy 1971 Gall bladder removal 2009 knee surgery, right 04/09/2010 knee surgery, left 07/2010 cataract surgery, left 02/10/2017 cataract surgery, right 03/03/2017
--- OUTSIDE RECORDS SUMMARY | 2024-10-06 15:12 | XMS_ITS | Encounter Summary ---
Author Organization [facility] Address [address] [place] [address] Care Team Providers Care Prosthetist Name Role Phone Rush Watts MD Primary Care Provider Encounter Details Date Type Department Care Team (Late st Contact Info) Description 08/15/2006 Orders Only [facility] [address] [place] [phone] Rush Watts MD [facility] [address] [place] [address] Social History Tobacco Use Types Packs/Day Years Used Date Smoking Tobacco: Never Assessed Comments Unknown Sex and Gender Information Value Date Recorded Sex Assigned at Not on file Legal Sex Female 8:36 AM EDT Gender Identity Not on file Sexual Orientation Not on file documented as of this encounter Plan of Treatment Not on file documented as of this encounter Procedures * Due to [place] state law, this organization might not be sharing negative HIV tests. Procedure Name Priority Date/Time Associated Diagnosis Comments CBC 5 PART DIFF Routine 08/15/2006 Hyperlipidemia ALANINE AMINOTRANSFERASE (ALT), SERUM Routine 08/15/2006 Hyperlipidemia ASPARTATE AMINOTRANSFERASE (AST), SERUM Routine 08/15/2006 Hyperlipidemia TSH, THYROTROPIN Routine 08/15/2006 Hyperlipidemia OCCULT BLOOD (STOOL GUAIAC) 3 SAMPLES Routine 08/15/2006 Hyperlipidemia CARDIAC RISK/LIPID PROFILE I Routine 08/15/2006 Hyperlipidemia BASIC METABOLIC PANEL Routine 08/15/2006 Hyperlipidemia documented in this encounter Results * Due to [place] state law, this organization might not be sharing negative HIV tests. * TSH, THYROTROPIN (08/15/2006) TSH, THYROTROPIN 2.5 0.3 - 5.5 UIU/ML [facility] (CLIA# [id number]) 08/15/2006 08/15/2006 2:5 4 PM EST Rush Watts MD LABORATORY Final Result Performing Organization Address [facility]/ZIP Co de Phone Number [facility] (CLIA# [id number]) [address] [place] [address] * ASPARTATE AMINOTRANSFERASE (AST), SERUM (08/15/2006) AST (SGOT) 18 3 - 35 U/L [facility] (CLIA# [id number]) 08/15/2006 08/15/2006 2:5 4 PM EST Rush Watts MD LAB SAME DAY RESULT Final Resul t Performing Organization Address [facility]/ZIP Co de Phone Number [facility] (CLIA# [id number]) [address] [place] [address] * ALANINE AMINOTRANSFERASE (ALT), SERUM (08/15/2006) ALT (SGPT) 24 3 - 40 U/L [facility] (CLIA# [id number]) 08/15/2006 08/15/2006 2:5 4 PM EST Rush Watts MD LAB SAME DAY RESULT Final Resul t Performing Organization Address City/[facility]/ZIP Co de Phone Number [facility] (CLIA# [id number]) [address] [place] [phone] * (ABNORMAL) CARDIAC RISK/LIPID PROFILE I (08/15/2006) CHOLESTEROL, TOTAL 173 100 - 199 MG/DL [facility] (CLIA# [id number]) TRIGLYCERIDES 177(H) 30 - 149 MG/DL [facility] (CLIA# [id number]) HDL-CHOLESTEROL 46 40 - 77 MG/DL [facility] (CLIA# [id number]) LDL-CHOLESTEROL 92 62 - 130 MG/DL [facility] (CLIA# [id number]) Comment: RISK CATEGORY: ??LDL-CHOLESTEROL GOAL CHD AND CHD RISK EQUIVALENTS: ??<100 MULTIPLE (2+) FACTORS: ??<130 ZERO TO ONE RISK FACTOR: ??<160 CHD RELATIVE RISK RATIO (TOTAL/HDL) 3.76 [facility] (CLIA# [id number]) Comment:(0.7 X AVERAGE) 08/15/2006 08/15/2006 2:5 4 PM EST Rush Watts MD LABORATORY Final Result Performing Organization Address City/[facility] Co de Phone Number [facility] (CLIA# [id number]) [address] [place] [phone] * OCCULT BLOOD (STOOL GUAIAC) 3 SAMPLES (08/15/2006) OCCULT BLOOD GUAIAC (STOOL) SEE TEXT [facility] (CLIA# [id number]) Comment: SOURCE: STOOL NOT DETECTED OCCULT BLOOD GUAIAC (STOOL) SEE TEXT [facility] (CLIA# [id number]) Comment: SOURCE: STOOL NOT DETECTED OCCULT BLOOD GUAIAC (STOOL) SEE TEXT [facility] (CLIA# [id number]) Comment: SOURCE: STOOL NOT DETECTED 08/15/2006 08/16/2006 1:2 4 AM EST Rush Watts MD LABORATORY Final Result Performing Organization Address City/[facility]/ZIP Co de Phone Number [facility] (CLIA# [id number]) [address] [place] [address] * (ABNORMAL) CBC 5 PART DIFF (08/15/2006) WHITE BLOOD COUNT 5.5 3.8 - 10.8 1000/UL [facility] (CLIA# [id number]) RBC 4.72 3.80 - 5.10 MIL/UL [facility] (CLIA# [id number]) Hemoglobin 14.3 11.7 - 15.5 G/DL [facility] (CLIA# [id number]) HCT (HEMATOCRIT) 42 35 - 45 % [facility] (CLIA# [id number]) MCV 89 80 - 100 FL [facility] (CLIA# [id number]) MCH 30 27 - 33 PG [facility] (CLIA# [id number]) MCHC 34 32 - 36 G/DL [facility] (CLIA# [id number]) BAND % 0 0 - 5 % [facility] (CLIA# [id number]) NEUTROPHIL % 54 48 - 75 % [facility] (CLIA# [id number]) LYMPHOCYTE % 30 17 - 40 % [facility] (CLIA# [id number]) MONOCYTE % 8 0 - 14 % [facility] (CLIA# [id number]) EOSINOPHIL % 7(H) 0 - 5 % [facility] (CLIA# [id number]) BASOPHIL % 1 0 - 3 % [facility] (CLIA# [id number]) ATYPICAL LYMPHOCYTE % 0 0 - 5 % [facility] (CLIA# [id number]) PLATELETS 147 140 - 400 THOU/UL [facility] (CLIA# [id number]) BANDS # 0 0 - 500 /UL [facility] (CLIA# [id number]) NEUTROPHILS # 2970 1500 - 7800 /UL [facility] (CLIA# [id number]) LYMPHOCYTES # 1650 850 - 3900 /UL [facility] (CLIA# [id number]) MONOCYTES # 440 200 - 950 /UL [facility] (CLIA# [id number]) EOSINOPHILS # 385 50 - 550 /UL [facility] (CLIA# [id number]) BASOPHILS # 55 0 - 200 /UL [facility] (CLIA# [id number]) ATYPICAL LYMPHOCYTES # 0 0 - 200 /UL [facility] (CLIA# [id number]) RDW 13.4 11.0 - 15.0 % [facility] (CLIA# [id number]) MPV 10.9 7.5 - 11.5 FL [facility] (CLIA# [id number]) 08/15/2006 08/15/2006 2:5 4 PM EST us Rush Watts MD LAB SAME DAY RESULT Final Resul t [facility] (CLIA# [id number]) [address] [place] [address] * (ABNORMAL) BASIC METABOLIC PANEL (08/15/2006) CALCIUM 9.5 8.5 - 10.4 MG/DL [facility] (CLIA# [id number]) BUN 22 7 - 25 MG/DL [facility] (CLIA# [id number]) CREATININE 0.9 0.5 - 1.2 MG/DL [facility] (CLIA# [id number]) BUN/Creatinine Ratio 24 6 - 25 [facility] (CLIA# [id number]) Glucose 111(H) 65 - 99 MG/DL [facility] (CLIA# [id number]) SODIUM 141 135 - 146 MMOL/L [facility] (CLIA# [id number]) POTASSIUM 4.6 3.5 - 5.3 MMOL/L [facility] (CLIA# [id number]) CHLORIDE 107 98 - 110 MMOL/L [facility] (CLIA# [id number]) CARBON DIOXIDE 24 21 - 33 MMOL/L [facility] (CLIA# [id number]) 08/15/2006 08/15/2006 2:5 4 PM EST us Rush Watts MD LABORATORY Final Result [facility] (CLIA# [id number]) [address] [place] [address] documented in this encounter Visit Diagnoses Diagnosis Hyperlipidemia Other and unspecified hyperlipidemia documented in this encounter Care Teams Prosthetist Relationship Specialty Start Date End Date Rush Watts MD [facility] [address] [place] [phone] PCP - General 10/12/05 documented as of this encounter
--- OUTSIDE RECORDS SUMMARY | 2024-10-06 15:12 | XMS_ITS | Encounter Summary ---
Author Organization [facility] Address [address] [place] [address] Care Team Providers Care Glue Mixer Name Role Phone Rush Watts MD Primary Care Provider Encounter Details Date Type Department Care Team (Late st Contact Info) Description 02/20/2006 Orders Only [facility] [address] [place] [phone] Rush Watts MD [facility] [address] [place] [address] Social History Tobacco Use Types Packs/Day Years [...] of this encounter Procedures * Due to [place] state law, this organization might not be sharing negative HIV tests. Procedure Name Priority Date/Time Associated Diagnosis Comments CBC 5 PART DIFF Routine 02/20/2006 Pure Hypercholesterolemia ALANINE AMINOTRANSFERASE (ALT), SERUM Routine 02/20/2006 Pure Hypercholesterolemia ASPARTATE AMINOTRANSFERASE (AST), SERUM Routine 02/20/2006 Pure Hypercholesterolemia TSH, THYROTROPIN Routine 02/20/2006 Pure Hypercholesterolemia CARDIAC RISK/LIPID PROFILE I Routine 02/20/2006 Pure Hypercholesterolemia BASIC METABOLIC PANEL Routine 02/20/2006 Pure Hypercholesterolemia documented in this encounter Results * Due to [place] state law, this organization might not be sharing negative HIV tests. * (ABNORMAL) BASIC METABOLIC PANEL (02/20/2006) CALCIUM 9.4 8.5 - 10.4 MG/DL [facility] (CLIA# [id number]) BUN 21 7 - 25 MG/DL [facility] (CLIA# [id number]) CREATININE 1.0 0.5 - 1.2 MG/DL [facility] (CLIA# [id number]) BUN/Creatinine Ratio 21 6 - 25 [facility] (CLIA# [id number]) Glucose 107(H) 65 - 99 MG/DL [facility] (CLIA# [id number]) SODIUM 142 135 - 146 MMOL/L [facility] (CLIA# [id number]) POTASSIUM 4.8 3.5 - 5.3 MMOL/L [facility] (CLIA# [id number]) CHLORIDE 107 98 - 110 MMOL/L [facility] (CLIA# [id number]) CARBON DIOXIDE 26 21 - 33 MMOL/L [facility] (CLIA# [id number]) 02/20/2006 02/20/2006 2:5 1 PM EDT Rush Watts MD LABORATORY Final Result [facility] (CLIA# [id number]) [address] [place] [address] * CBC 5 PART DIFF (02/20/2006) WHITE BLOOD COUNT 5.0 3.8 - 10.8 1000/UL [facility] (CLIA# [id number]) RBC 4.50 3.80 - 5.10 MIL/UL [facility] (CLIA# [id number]) Hemoglobin 13.9 11.7 - 15.5 G/DL [facility] (CLIA# [id number]) HCT (HEMATOCRIT) 41 35 - 45 % [facility] (CLIA# [id number]) MCV 90 80 - 100 FL [facility] (CLIA# [id number]) MCH 31 27 - 33 PG [facility] (CLIA# [id number]) MCHC 34 32 - 36 G/DL [facility] (CLIA# [id number]) BAND % 0 0 - 5 % [facility] (CLIA# [id number]) NEUTROPHIL % 54 48 - 75 % [facility] (CLIA# [id number]) LYMPHOCYTE % 32 17 - 40 % [facility] (CLIA# [id number]) MONOCYTE % 8 0 - 14 % [facility] (CLIA# [id number]) EOSINOPHIL % 5 0 - 5 % [facility] (CLIA# [id number]) BASOPHIL % 1 0 - 3 % [facility] (CLIA# [id number]) ATYPICAL LYMPHOCYTE % 0 0 - 5 % [facility] (CLIA# [id number]) PLATELETS 149 140 - 400 THOU/UL [facility] (CLIA# [id number]) BANDS # 0 0 - 500 /UL [facility] (CLIA# [id number]) NEUTROPHILS # 2700 1500 - 7800 /UL [facility] (CLIA# [id number]) LYMPHOCYTES # 1600 850 - 3900 /UL [facility] (CLIA# [id number]) MONOCYTES # 400 200 - 950 /UL [facility] (CLIA# [id number]) EOSINOPHILS # 250 50 - 550 /UL [facility] (CLIA# [id number]) BASOPHILS # 50 0 - 200 /UL [facility] (CLIA# [id number]) ATYPICAL LYMPHOCYTES # 0 0 - 200 /UL [facility] (CLIA# [id number]) RDW 13.1 11.0 - 15.0 % [facility] (CLIA# [id number]) MPV 10.0 7.5 - 11.5 FL [facility] (CLIA# [id number]) 02/20/2006 02/20/2006 2:5 1 PM EDT Rsuh Watts MD LAB SAME DAY RESULT Final Resul t Performing Organization Address [facility] de Phone Number [facility] (CLIA# [id number]) [address] [place] [address] * (ABNORMAL) CARDIAC RISK/LIPID PROFILE I (02/20/2006) CHOLESTEROL, TOTAL 177 100 - 199 MG/DL [facility] (CLIA# [id number]) TRIGLYCERIDES 207(H) 30 - 149 MG/DL [facility] (CLIA# [id number]) HDL-CHOLESTEROL 43 40 - 77 MG/DL [facility] (CLIA# [id number]) LDL-CHOLESTEROL 93 62 - 130 MG/DL [facility] (CLIA# [id number]) Comment: RISK CATEGORY: ??LDL-CHOLESTEROL GOAL CHD AND CHD RISK EQUIVALENTS: ??<100 MULTIPLE (2+) FACTORS: ??<130 ZERO TO ONE RISK FACTOR: ??<160 CHD RELATIVE RISK RATIO (TOTAL/HDL) 4.12 [facility] (CLIA# [id number]) Comment:(0.9 X AVERAGE) 02/20/2006 02/20/2006 2:5 1 PM EDT Rush Watts MD LABORATORY Final Result Performing Organization Address [facility] de Phone Number [facility] (CLIA# [id number]) [address] [place] [address] * ALANINE AMINOTRANSFERASE (ALT), SERUM (02/20/2006) ALT (SGPT) 23 3 - 40 U/L [facility] (CLIA# [id number]) 02/20/2006 02/20/2006 2:5 1 PM EDT Rush Watts MD LAB SAME DAY RESULT Final Resul t Performing Organization Address [facility] de Phone Number [facility] (CLIA# [id number]) [address] [place] [address] * ASPARTATE AMINOTRANSFERASE (AST), SERUM (02/20/2006) AST (SGOT) 20 3 - 35 U/L [facility] (CLIA# [id number]) 02/20/2006 02/20/2006 2:5 1 PM EDT us Rush Watts MD LAB SAME DAY RESULT Final Resul t Performing Organization Address City/[facility] Co de Phone Number [facility] (CLIA# [id number]) [address] [place] [address] * TSH, THYROTROPIN (02/20/2006) TSH, THYROTROPIN 1.3 0.3 - 5.5 UIU/ML [facility] (CLIA# [id number]) 02/20/2006 02/20/2006 2:5 1 PM EDT us Rush Watts MD LABORATORY Final Result Performing Organization Address City/[facility] Co de Phone Number [facility] (CLIA# [id number]) [address] [place] [address] documented in this encounter Visit Diagnoses Diagnosis Pure hypercholesterolemia documented in this encounter Care Teams Glue Mixer Relationship Specialty Start Date End Date Rush Watts MD [facility] [address] [place] [phone] PCP - General 10/12/05 documented as of this encounter
--- OUTSIDE RECORDS SUMMARY | 2024-10-06 15:12 | XMS_ITS | Encounter Summary ---
Author Organization [facility] Address [address] [place] [address] Care Team Providers Care Note Keeper Name Role Phone Rush Watts MD Primary Care Provider [phone] Encounter Details Date Type Department Care Team (Late st Contact Info) Description 08/25/2007 Orders Only [facility] [address] [place] [phone] Rush Watts MD [facility] [address] [place] [address] Social History Tobacco Use Types Packs/Day Years Used Date Smoking Tobacco: Never Assessed Comments No Sex and Gender Information Value Date Recorded Sex Assigned at Not on file Legal Sex Female 8:36 AM EDT Gender Identity Not on file Sexual Orientation Not on file documented as of this encounter Plan of Treatment Not on file documented as of this encounter Procedures * Due to [place] state law, this organization might not be sharing negative HIV tests. Procedure Name Priority Date/Time Associated Diagnosis Comments BASIC METABOLIC PANEL Routine 08/25/2007 DIABETES MELLITUS TYPE II ALANINE AMINOTRANSFERASE (ALT), SERUM Routine 08/25/2007 HYPERLIPIDEMIA ASPARTATE AMINOTRANSFERASE (AST), SERUM Routine 08/25/2007 HYPERLIPIDEMIA TSH, THYROTROPIN Routine 08/25/2007 HYPOTHYROIDISM HEMOGLOBIN A1C Routine 08/25/2007 DIABETES MELLITUS TYPE II CK, CREATINE KINASE (CPK, TOTAL) Routine 08/25/2007 HYPERLIPIDEMIA LIPID PANEL WITHOUT CARDIAC RISK Routine 08/25/2007 HYPERLIPIDEMIA documented in this encounter Results * Due to [place] state law, this organization might not be sharing negative HIV tests. * TSH, THYROTROPIN (08/25/2007) TSH, THYROTROPIN 1.82 0.40 - 4.50 UIU/ML [facility] (CLIA# [id number]) 08/25/2007 08/25/2007 3:3 1 PM EST Rush Watts MD LABORATORY Final Result Performing Organization Address [facility] Co de Phone Number [facility] (CLIA# [id number]) [address] [place] [address] * LIPID PANEL WITHOUT CARDIAC RISK (08/25/2007) Pathologist [facility] CHOLESTEROL, TOTAL 155 125 - 200 MG/DL [facility] (CLIA# [id number]) TRIGLYCERIDES 141 30 - 149 MG/DL [facility] (CLIA# [id number]) HDL-CHOLESTEROL 55 40 - 77 MG/DL [facility] (CLIA# [id number]) LDL-CHOLESTEROL 72 62 - 130 MG/DL [facility] (CLIA# [id number]) Comment: RISK CATEGORY: ??LDL-CHOLESTEROL GOAL CHD AND CHD RISK EQUIVALENTS: ??<100 MULTIPLE (2+) FACTORS: ??<130 ZERO TO ONE RISK FACTOR: ??<160 08/25/2007 08/25/2007 3:3 1 PM EST Rush Watts MD LABORATORY Final Result Performing Organization Address [facility] de Phone Number [facility] (CLIA# [id number]) [address] [place] [address] * (ABNORMAL) HEMOGLOBIN A1C (08/25/2007) Pathologist [facility] Hemoglobin A1C 6.0(H) 0.0-5.9 < 6.0% % [facility] (CLIA# [id number]) GLUCOSE MEAN VALUE 136 MG/DL [facility] (CLIA# [id number]) 08/25/2007 08/25/2007 3:3 1 PM EST Rush Watts MD LABORATORY Final Result Performing Organization Address [facility] Co de Phone Number [facility] (CLIA# [id number]) [address] [place] [address] * CK, CREATINE KINASE (CPK, TOTAL) (08/25/2007) [facility] CK (CREATINE KINASE) 46 0 - 165 IU/L [facility] (CLIA# [id number]) 08/25/2007 08/25/2007 3:3 1 PM EST Rush Watts MD LAB SAME DAY RESULT Final Resul t Performing Organization Address [facility] de Phone Number [facility] (CLIA# [id number]) [address] [place] [address] * (ABNORMAL) BASIC METABOLIC PANEL (08/25/2007) Pathologist [facility] CALCIUM 9.4 8.6 - 10.2 MG/DL [facility] (CLIA# [id number]) BUN 26(H) 7 - 25 MG/DL [facility] (CLIA# [id number]) CREATININE 0.90 0.50-1.30/ 1.20 MG/DL [facility] (CLIA# [id number]) BUN/Creatinine Ratio 29(H) 6 - 25 [facility] (CLIA# [id number]) Glucose 108(H) 65 - 99 MG/DL [facility] (CLIA# [id number]) SODIUM 141 135 - 146 MMOL/L [facility] (CLIA# [id number]) POTASSIUM 4.9 3.5 - 5.3 MMOL/L [facility] (CLIA# [id number]) CHLORIDE 106 98 - 110 MMOL/L [facility] (CLIA# [id number]) CARBON DIOXIDE 25 21 - 33 MMOL/L [facility] (CLIA# [id number]) 08/25/2007 08/25/2007 3:3 1 PM EST Rush Watts MD LAB SAME DAY RESULT Final Resul t Performing Organization Address [facility] Co de Phone Number [facility] (CLIA# [id number]) [address] [place] [address] * ASPARTATE AMINOTRANSFERASE (AST), SERUM (08/25/2007) AST (SGOT) 18 10 - 35 U/L [facility] (CLIA# [id number]) 08/25/2007 08/25/2007 3:3 1 PM EST us Rush Watts MD LAB SAME DAY RESULT Final Resul t Performing Organization Address [facility] Co de Phone Number [facility] (CLIA# [id number]) [address] [place] [address] * ALANINE AMINOTRANSFERASE (ALT), SERUM (08/25/2007) ALT (SGPT) 27 6 - 40 U/L [facility] (CLIA# [id number]) 08/25/2007 08/25/2007 3:3 1 PM EST Rush Watts MD LAB SAME DAY RESULT Final Resul t Performing Organization Address [facility] Co de Phone Number [facility] (CLIA# [id number]) [address] [place] [address] documented in this encounter Visit Diagnoses Diagnosis HYPERLIPIDEMIA Other and unspecified hyperlipidemia DIABETES MELLITUS TYPE II Type II or unspecified type diabetes mellitus without mention of complication, not stated as uncontrolled HYPOTHYROIDISM Unspecified hypothyroidism documented in this encounter Care Teams Note Keeper Relationship Specialty Start Date End Date Rush Watts MD [facility] [address] [place] [phone] PCP - General 10/12/05 documented as of this encounter
--- OUTSIDE RECORDS SUMMARY | 2024-10-06 15:12 | XMS_ITS | Encounter Summary ---
Author Organization [facility] Address [address] [place] [address] Care Team Providers Care Filament Shaper Name Role Phone Rush Watts MD Primary Care Provider [phone] Encounter Details Date Type Department Care Team (Late st Contact Info) Description 09/12/2008 Orders Only [facility] [address] [place] [phone] Rush Watts MD [facility] [address] [place] [address] Social History Tobacco Use Types Packs/Day Years Used Date Smoking Tobacco: Former Comments:quit 50 years ago Alcohol Use Standard Drinks/Week Comments No 0 (1 standard drink = 0.6 oz pur e alcohol) Comments No Sex and Gender Information Value Date Recorded Sex Assigned at Not on file Legal Sex Female 8:36 AM EDT Gender Identity Not on file Sexual Orientation Not on file documented as of this encounter Plan of Treatment Not on file documented as of this encounter Procedures * Due to [place] state law, this organization might not be sharing negative HIV tests. Procedure Name Priority Date/Time Associated Diagnosis Comments HEMOGLOBIN A1C Routine 09/12/2008 DM w/o Complication Type II CARDIAC RISK/LIPID PROFILE I Routine 09/12/2008 Pure Hypercholesterolemia BASIC METABOLIC PANEL Routine 09/12/2008 Essential Hypertension, Benign ALANINE AMINOTRANSFERASE (ALT), SERUM Routine 09/12/2008 Pure Hypercholesterolemia ASPARTATE AMINOTRANSFERASE (AST), SERUM Routine 09/12/2008 Pure Hypercholesterolemia TSH, THYROTROPIN Routine 09/12/2008 CK, CREATINE KINASE (CPK, TOTAL) Routine 09/12/2008 Pure Hypercholesterolemia documented in this encounter Results * Due to [place] state law, this organization might not be sharing negative HIV tests. * TSH (THYROTROPIN) (09/12/2008) TSH, THYROTROPIN 2.37 0.40 - 4.50 UIU/ML 09/12/2008 09/12/2008 3:4 8 PM EST Narrative 09/17/2008 3:20 AM EST Report Comments: TSH ADDED 09/16/2008 us Rush Watts MD LABORATORY Final Result * (ABNORMAL) HEMOGLOBIN A1C (09/12/2008) Pathologist [facility] Hemoglobin A1C 6.1(H) 0.0 - 5.9 % GLUCOSE MEAN VALUE 140 MG/DL 09/12/2008 09/12/2008 3:4 8 PM EST us Rush Watts MD LABORATORY Final Result * CK, CREATINE KINASE (CPK, TOTAL) (09/12/2008) Pathologist [facility] CK (CREATINE KINASE) 34 29 - 143 U/L 09/12/2008 09/12/2008 3:4 8 PM EST Result Rehan Watts MD LAB SAME DAY RESULT Final Resul t * (ABNORMAL) CARDIAC RISK/LIPID PROFILE I (09/12/2008) Pathologist [facility] CHOLESTEROL, TOTAL 153 125 - 200 MG/DL TRIGLYCERIDES 161(H) 30 - 149 MG/DL HDL-CHOLESTEROL 50 40 - 77 MG/DL LDL-CHOLESTEROL 71 62 - 130 MG/DL Comment: RISK CATEGORY: ??LDL-CHOLESTEROL GOAL CHD AND CHD RISK EQUIVALENTS: ??<100 MULTIPLE (2+) FACTORS: ??<130 ZERO TO ONE RISK FACTOR: ??<160 CHD RELATIVE RISK RATIO (TOTAL/HDL) 3.06 0.0 - 5.0 Comment:(0.3 X AVERAGE) 09/12/2008 09/12/2008 3:4 8 PM EST Result [facility] Rush Watts MD LABORATORY Final Result * (ABNORMAL) BASIC METABOLIC PANEL (09/12/2008) CALCIUM 9.7 8.6 - 10.2 MG/DL BUN 23 7 - 25 MG/DL CREATININE 0.98 0.50 - 1.20 MG/DL Glucose 108(H) 65 - 99 MG/DL SODIUM 144 135 - 146 MMOL/L POTASSIUM 4.7 3.5 - 5.3 MMOL/L CHLORIDE 103 98 - 110 MMOL/L CARBON DIOXIDE 25 21 - 33 MMOL/L 09/12/2008 09/12/2008 3:4 8 PM EST Result [facility] us Rush Watts MD LAB SAME DAY RESULT Final Resul t * ASPARTATE AMINOTRANSFERASE (AST), SERUM (09/12/2008) AST (SGOT) 21 10 - 35 U/L 09/12/2008 09/12/2008 3:4 8 PM EST Result [facility] Rush Watts MD LAB SAME DAY RESULT Final Resul t * ALANINE AMINOTRANSFERASE (ALT), SERUM (09/12/2008) ALT (SGPT) 33 6 - 40 U/L 09/12/2008 09/12/2008 3:4 8 PM EST Result Rehan Watts MD LAB SAME DAY RESULT Final Resul t documented in this encounter Visit Diagnoses Diagnosis Pure hypercholesterolemia Essential hypertension, benign Type II or unspecified type diabetes mellitus without mention of complication, not stated as uncontrolled documented in this encounter Care Teams Filament Shaper Relationship Specialty Start Date End Date Rush Watts MD [facility] [address] [place] [phone] PCP - General 10/12/05 documented as of this encounter
--- OUTSIDE RECORDS SUMMARY | 2024-10-06 15:12 | XMS_ITS | Clinical Summary ---
Author Organization [facility] Address [address] [place] [address] Care Team Providers Care Footwear Factory Worker Name Role Phone Rush Saab MD Primary Care Provider [phone] Allergies Active Allergy Reactions Criticality Noted Date Comments Tri-Buffered Aspirin Other 11/19/2000 Medications TRIAMCINOLONE ACETONIDE 0.1 % EX CREA B ID/TID to area 80g 1 08/25/19 07 Active FISH OIL 1000 MG OR CAPS 1 tab a day Active Simvastatin 40 MG OR TABSIndications:Pure hypercholesterolemia 1 TABLET AT BEDTIME 30 5 03/16/20 09 Active MUPIROCIN CALCIUM (BACTROBAN NASAL) 2 % NA OINT apply to anterior nares bid for 5 days prior to surgery 10 tubes 0 03/20/20 09 Active Piroxicam 20 MG OR CAPS 1 CAPSULE DAILY 30 5 04/07/20 09 Active Hydrocodone-Acetaminoph en (VICODIN ES) 7.5-750 MG OR TABS 1 TABLET EVERY 4 TO 6 HOURS NEEDED 45 0 06/09/20 09 Active TraZODone HCl 50 MG OR TABS 1-2 po QHS prn sleep 60 5 06/20/20 09 Active Oxybutynin Chloride 5 MG OR TABS take 1 tablet three times a day 90 5 06/20/20 09 Active WARFARIN SODIUM (COUMADIN) 1 MG OR TABS 1 TABLET DAILY 5 days prior to surgery, continue take 1 tablet after hospital discharge 40 0 07/19/20 09 Active Active Problems Problem Noted Date Diagnosed Date Knee joint replacement by other means 09/01/2009 Overview (12/09/2013): . Nephrolithiasis 03/15/2008 Overview (03/15/2008): November-December - passed stone spontaneously just prior to lithotripsy- Dr Lico Fernandez Hypothyroidism 03/02/2007 Overview (11/25/2014): 03/02/2007 RUSH SAAB MD DM w/o complication type II 08/25/2006 Overview (03/02/2007): 08/25/2006 RUSH SAAB MD Essential hypertension, benign 08/25/2006 Overview (03/02/2007): 08/25/2006 RUSH SAAB MD Pure hypercholesterolemia 08/25/2006 Overview (03/02/2007): 02/20/2006 RUSH SAAB MD Obesity 08/31/1987 Overview (03/02/2007): 08/31/1987 Jillain MARTINEZ M.D. Urinary incontinence Overview (11/19/2013): , Immunizations Name Administration Dates Next Due Flu Vac Purchased 36 mos and older 06/29/2009 Influenza,seasonal,trivalent ,preserv ative (FLUZONE MDV) 06/29/2009,06/02/2008,05/22/2007, 006,06/26/2004,05/12/2002,05/04/1999, PPV23 (Pneumovax) 08/21/1999 Td (adult), adsorbed 08/21/2000 Social History Tobacco Use Types Packs/Day Years Used Date Smoking Tobacco: Former Comments:quit 50 years ago Alcohol Use Standard Drinks/Week Comments No 0 (1 standard drink = 0.6 oz pur e alcohol) Comments No Sex and Gender Information Value Date Recorded Sex Assigned at Not on file Legal Sex Female 8:36 AM EDT Gender Identity Not on file Sexual Orientation Not on file Last Filed Vital Signs Vital Sign Reading Time Taken Comments Blood Pressure 138/78 07/05/2009 9:17 AM EST Pulse 82 07/05/2009 9:17 AM EST Temperature 36.3 ??C (97.4 ??F) 07/05/2009 9:17 AM ES T Respiratory Rate 14 07/05/2009 9:17 AM EST Oxygen Saturation - - Inhaled Oxygen Concentration - - Weight 122 kg (268 lb) 07/05/2009 9:17 AM EST Height 165.1 cm (5' 5 ) 07/05/2009 9:17 AM EST Body Mass Index 44.6 07/05/2009 9:17 AM EST Plan of Treatment Health Maintenance Due Date Last Done Comments Zoster (Shingrix) (1 of 2) 1987 Pneumococcal 50+ years (2 of 2 - PCV) 08/21/2000 08/21/1999 DTaP/Tdap/Td (1 - Tdap) 08/22/2000 08/21/2000 Eye/Retina Exam 09/11/2010 09/11/2009, 08/31/2008 GFR 09/27/2011 09/26/2010, 07/2009, 10/09/2009, Additional history exists LDL Cholesterol 09/27/2011 09/26/2010, 07/2009, 10/09/2009, Additional history exists Microalbumin 09/27/2011 09/26/2010, 09/19, 03/09/2009, Additional history exists RSV (1 - 1-dose 75+ series) 2012 COVID-19 Vaccine ( season) 2024 Influenza (#1) 2024 06/29/2009, 06/20, 06/02/2008, Additional history exists Bone Density Completed 12/13/2003 Pap Smear Discontinued 12/13/2004, 09/1999, 08/23/1999 Mammogram/Breast Imaging Discontinued 011, 06/20/2008, 03/13/2007, Additional history exists HPV Vaccine Aged Out No longer eligi ble based on patient's age to complete this topic Hep A Aged Out No longer eligi ble based on patient's age to complete this topic Hep B Aged Out No longer eligi ble based on patient's age to complete this topic Hib Aged Out No longer eligi ble based on patient's age to complete this topic Meningococcal ACWY Aged Out No longer eligible based on patient's age to complete this topic Zoster (Zostavax) Discontinued Procedures * Due to [place] [employer] law, this organization might not be sharing negative HIV tests. Procedure Name Priority Date/Time Associated Diagnosis Comments DIGITAL SCREENING MAMMO Routine 01/23/2011 9:16 AM EDT URINE MALB AND CREAT PROFILE Routine 09/26/2010 8:40 AM EST BASIC METABOLIC PANEL Routine 09/26/2010 8:34 AM EST LIPID PANEL Routine 09/26/2010 8:34 AM EST OBTAINING SCREEN PAP SMEAR 12/13/2004 12:00 AM EDT Routine General Medical Examination At A [facility] Screening For Malignant Neoplasm Of The Cervix Routine Gynecological Examination DUAL ENERGY DEXA BONE DENSITY ONE/MORE SITES AXIAL SKEL Routine 12/13/2003 2:06 PM EDT Special Screening for Osteoporosis from Last 3 Months or Most Recently Relevant to Health Maintenance Results * Due to [facility] law, this organization might not be sharing negative HIV tests. * DIGITAL SCREENING MAMMO (01/23/2011 9:16 AM EDT) RADIOLOGY REPORT DEPARTMENT OF RADIOLOGY Patient: IRVING NOVAK SISTER Unit #: [id number] Ordering MD: RUSH SAAB MD : [id number] Procedure: Digital Screening Mammo Age: 75 Location: C.MAMMO Exam Date: 01/23/11 Status: REG CLI Room/Bed: Primary MD: RUSH SAAB MD Patient Order: [id number] Additional Copy: ??RUSH SAAB MD #[id number] - [id number] BILATERAL DIGITAL SCREENING MAMMOGRAM WITH CAD: 01/23/2011 CLINICAL: Routine. Comparison is made to exam dated: 01/18/2010 mammogram. The tissue of both breasts is heterogeneously dense. This may lower the sensitivity of mammography. Current study was also evaluated with a Computer Aided Detection (CAD) system. No significant masses, calcifications, or other findings are seen in either breast. There has been no significant interval change. IMPRESSION: NEGATIVE There is no mammographic evidence of malignancy. A 1 year screening mammogram is recommended. POI: [place] Electronically signed by: Nikolai Hoyt M.D. hr/:01/30/2011 09:08:07 letter sent: A-Normal Benign Mammogram BI-RADS: 1 Negative [facility] Anatomical Region Laterality Modality Other 01/23/2011 9:16 AM EDT Narrative 01/31/2011 8:01 AM EDT Reason for Study/History: Routine. TEST(S) PROCESSED BY [facility] Rush Saab MD [facility] Final Result * URINE MALB AND CREAT PROFILE (09/26/2010 8:40 AM EST) CREATININE, URINE RANDOM 81.0 mg/dL [facility] MICROALBUMIN, URINE RANDOM < 3.0 0 - 20 mg/L [facility] MICROALBUM/CREATI NINE RATIO, UR INVALID mg/g [facility] Comment: WHEN URINE CREATININE IS <12.5, OR MICROALBUMIN <3.0, THE MICROALBUMIN/CREATININE RATIO IS INVALID FOR THE LABORATORY METHODOLOGY. 09/26/2010 8:40 AM EST 09/26/2010 8:43 AM EST Rush Saab MD LABORATORY Edited [facility] [address] [place] [address] * LIPID PANEL (09/26/2010 8:34 AM EST) TRIGLYCERIDES 156 mg/dL [facility] Comment: NORMAL: ? <150 mg/dL BORDERLINE HIGH: 150-199 mg/dL HIGH: ?200-499 mg/dL VERY HIGH ? >499 mg/dL CHOLESTEROL 156 mg/dL [facility] Comment: DESIRABLE: ?<200 mg/dL BORDERLINE HIGH: 200-239 mg/dL HIGH: ? >239 mg/dL HDL CHOLESTEROL 47.2 mg/dL [facility] Comment: DESIRABLE: ? >60 mg/dL BORDERLINE: ?40-59 mg/dL UNDESIRABLE: ? <40 mg/dL LDL CHOLESTEROL, CALCULATED 77.6 mg/dL [facility] Comment: OPTIMAL: ?<100 mg/dL NEAR OPTIMAL: ? <130 mg/dL BORDERLINE HIGH: 130-159 mg/dL HIGH: ?160-189 mg/dL VERY HIGH ? >189 mg/dL VLDL CHOLESTEROL 31.2 2.0 - 49.0 mg/dL [facility] CHOL/HDL RATIO 3.31 0.0 - 4.0 [facility] 09/26/2010 8:34 AM EST 09/26/2010 8:42 AM EST us Rush Saab MD LABORATORY Edited [facility] [address] [place] [address] * (ABNORMAL) BASIC METABOLIC PANEL (09/26/2010 8:34 AM EST) SODIUM 143 132 - 146 mMOL/L [facility] POTASSIUM 4.8 3.5 - 5.5 mMOL/L [facility] CHLORIDE 106 98 - 109 mMOL/L [facility] CARBON DIOXIDE 34(H) 20 - 31 mMOL/L [facility] ANION GAP 8 7 - 16 mMOL/L [facility] BLOOD UREA NITROGEN 18 9 - 23 mg/dL [facility] CREATININE 0.90 0.5 - 1.3 mg/dL [facility] GLOMERULAR FILTRATION RATE > 60 eGFR [facility] Comment:>=60mL/min/1.73m 2 GLUCOSE 143(H) 60 - 99 mg/dL [facility] CALCIUM 9.5 8.2 - 10.9 mg/dL [facility] 09/26/2010 8:34 AM EST 09/26/2010 8:42 AM EST Rush Saab MD LABORATORY Edited [facility] [address] [place] [address] * DUAL ENERGY DEXA BONE DENSITY ONE/MORE SITES AXIAL SKEL (12/13/2003 2:06 PM EDT) RADIOLOGY REPORT Bone densitometry lumbar spine and left hip: Average BMD of L1-L4 = 1.212 g/cm2. This value is 144 % of age matched peers, or 3.4 S.D., and 116 % of young adult peak bone mass, or 1.5 S.D. Total BMD of left hip = 1.383 g/cm2. This value is 177 % of age matched peers, or 4.9 S.D., and 147 % of young adult peak bone mass, or 3.6 S.D. IMPRESSION: Normal bone mineral density lumbar spine and left hip. [facility] (CLIA# [id number]) Anatomical Region Laterality Modality Other 12/13/2003 2:06 PM EDT Narrative 12/14/2003 7:26 AM EDT Reason for Study/History: BONE DENSITY L SPINE L HIP Test(s) processed by : [facility] Kelly Tran MD GENERAL IMAGING- OTHER Final Re sult from Last 3 Months or Most Recently Relevant to Health Maintenance Insurance [facility] DUAL Care Teams Footwear Factory Worker Relationship Specialty Start Date End Date Rush Saab MD [facility] [address] [place] [phone] PCP - General 10/12/05
--- OUTSIDE RECORDS SUMMARY | 2024-10-06 15:13 | XMS_ITS | Encounter Summary ---
Author Organization [facility] Address [address] [place] [address] Care Team Providers Care Wool Hat Forming Machine Tender Name Role Phone Rush Watts MD Primary Care Provider [phone] Encounter Details Date Type Department Care Team (Late st Contact Info) Description 03/15/2009 Orders Only [facility] Pre-Admission Testing [address] [place] [address] Shayla Zurita MD [address] [place] [phone] Social History Tobacco Use Types Packs/Day Years [...] of this encounter Procedures * Due to [place] [employer] law, this organization might not be sharing negative HIV tests. Procedure Name Priority Date/Time Associated Diagnosis Comments CULTURE, URINE Routine 03/15/2009 Urine Incontinence MRSA SCREEN, ANY SOURCE Routine 03/15/2009 Preop Examination URINALYSIS, COMPLETE (DIP & MICRO) Routine 03/15/2009 Urine Incontinence documented in this encounter Results * Due to [place] state law, this organization might not be sharing negative HIV tests. * (ABNORMAL) URINALYSIS, COMPLETE (DIP & MICRO) (03/15/2009) COLOR (URINE) YELLOW YELLOW [facility] APPEARANCE (URINE) CLEAR CLEAR [facility] SPECIFIC GRAVITY 1.021 1.001 - 1.035 [facility] PH (URINE) 5.0 5.0 - 8.0 [facility] PROTEIN (URINE) NEG NEG [facility] GLUCOSE (URINE) NEG NEG [facility] Ketones (Urine) NEG NEG [facility] BILIRUBIN (URINE) NEG NEG [facility] BLOOD (URINE) NEG NEG [facility] WBC (URINE) 1+(A) NEG [facility] NITRITE (URINE) NEG NEG [facility] WBC (URINE) 0-5 0-4/HPF [facility] RBC (Urine Sed) 0-3 0-3/HPF [facility] EPITHELIAL CELLS.SQUAMOUS (URINE SED) 0-5 0-5/HPF [facility] EPITHELIAL CELLS.TRANSITIO NAL (URINE SED) 0 0-5/HPF [facility] EPITHELIAL CELLS.RENAL (URINE SED) 0 0-3/HPF [facility] BACTERIA (URINE) FEW(A) NONE SEEN [facility] URINE CALCIUM OXYLATE CRYSTALS FEW NONE-FEW/HP F [facility] 03/15/2009 03/15/2009 7:2 3 PM EDT Shayla Zurita MD LAB SAME DAY RESULT Final Result [facility] [address] [place] [address] * CULTURE, URINE (03/15/2009) URINE CULTURE CLEAN VOID SEE TEXT [facility] Comment: SOURCE: URINE MULTIPLE ORGANISMS, EACH <10,000 CFU/ML. MAY REPRESENT NORMAL TADEO CONTAMINATION FROM EXTERNAL GENITALIA. NO FURTHER TESTING. 03/15/2009 03/15/2009 7:2 3 PM EDT Shayla Zurita MD LABORATORY Final Result [facility] [address] [place] [address] * (ABNORMAL) MRSA SCREEN, ANY SOURCE (03/15/2009) Result(s) SEE TEXT(A) [facility] Comment: SOURCE: UNK (#1) METHICILLIN RESISTANT STAPHYLOCOCCUS AUREUS (MRSA), THIS ISOLATE DEMONSTRATES INDUCIBLE CLINDAMYCIN RESISTANCE. SUSCEPTIBILITIES ? #1 ??CEFAZOLIN ?<2 R ?CEPHALOTHIN ?<8 R ?CHLORAMPHENICOL ?<4 S ?CIPROFLOXACIN ?>2 R ?CLINDAMYCIN ? R ?ERYTHROMYCIN ? >4 R ?GENTAMICIN ? <1 S ?LEVOFLOXACIN ? >4 R ?LINEZOLID ? 2 S ?OXACILLIN ?>2 R ?PENICILLIN ?8 R ?RIFAMPIN ? <1 S ?TETRACYCLINE ? <1 S ?TRIMETH/SULFA ?<0.5 S ?VANCOMYCIN ? <2 S ?? 03/15/2009 03/15/2009 7:2 3 PM EDT Shayla Zurita MD LABORATORY Final Result Performing Organization Address [facility]/State/[facility] Co de Phone Number [facility] [address] [place] [address] documented in this encounter Visit Diagnoses Diagnosis HTN (hypertension) Unspecified essential hypertension Preop examination Preoperative examination, unspecified Urine incontinence Unspecified urinary incontinence documented in this encounter Care Teams Wool Hat Forming Machine Tender Relationship Specialty Start Date End Date Rush Watts MD [facility] [address] [place] [phone] PCP - General 10/12/05 documented as of this encounter
--- OUTSIDE RECORDS SUMMARY | 2024-10-06 15:13 | XMS_ITS | Encounter Summary ---
Author Organization [facility] Address [address] [place] [address] Care Team Providers Care Supervisor Cigar Making Hand Name Role Phone Rush Watts MD Primary Care Provider Encounter Details Date Type Department Care Team (Late st Contact Info) Description 02/24/2007 Orders Only [facility] [address] [place] [phone] Rush Watts MD [facility] [address] [place] [address] Social History Tobacco Use Types Packs/Day Years [...] Associated Diagnosis Comments BASIC METABOLIC PANEL Routine 02/24/2007 ESSENTIAL HYPERTENSION, BENIGN MICROALBUMIN (RANDOM URINE) Routine 02/24/2007 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 * MICROALBUMIN (RANDOM URINE) (02/24/2007) CREATININE (URINE) 172 20 - 320 MG/DL [facility] (CLIA# [id number]) Microalbumin (Urine) < 5 0 - 29 UG/ML [facility] (CLIA# [id number]) MICROALBUMIN/CREA T RATIO (URINE) SEE TEXT 0 - 29 [facility] (CLIA# [id number]) Comment: UNITS: UG/MG CREATININE MICROALBUMIN <5, CANNOT CALCULATE RATIO 02/24/2007 02/24/2007 4:1 8 PM EDT Rush Watts MD LABORATORY Final Result Performing Organization Address [facility] de Phone Number [facility] (CLIA# [id number]) [address] [place] [address] * HEMOGLOBIN A1C (02/24/2007) Hemoglobin A1C 5.9 0.0 - 5.9 % [facility] (CLIA# [id number]) Comment: WELL-CONTROLLED OR NON-DIABETIC: < 6.0% DIABETIC HEMOGLOBIN A1C: THERAPEUTIC GOAL: < 7% RE-EVALUATE THERAPY: > 8% GLUCOSE MEAN VALUE 133 MG/DL [facility] (CLIA# [id number]) 02/24/2007 02/24/2007 4:1 8 PM EDT Rush Watts MD LABORATORY Final Result Performing Organization Address [facility] Co de Phone Number [facility] (CLIA# [id number]) [address] [place] [address] * TSH, THYROTROPIN (02/24/2007) TSH, THYROTROPIN 1.33 0.40 - 4.50 UIU/ML [facility] (CLIA# [id number]) 02/24/2007 02/24/2007 4:1 8 PM EDT Rush Watts MD LABORATORY Final Result Performing Organization Address [facility]/ZIP Co de Phone Number [facility] (CLIA# [id number]) [address] [place] [address] * CARDIAC RISK/LIPID PROFILE I (02/24/2007) Pathologist [facility] CHOLESTEROL, TOTAL 189 125 - 200 MG/DL [facility] (CLIA# [id number]) TRIGLYCERIDES 119 30 - 149 MG/DL [facility] (CLIA# [id number]) HDL-CHOLESTEROL 48 40 - 77 MG/DL [facility] (CLIA# [id number]) LDL-CHOLESTEROL 117 62 - 130 MG/DL [facility] (CLIA# [id number]) Comment: RISK CATEGORY: ??LDL-CHOLESTEROL GOAL CHD AND CHD RISK EQUIVALENTS: ??<100 MULTIPLE (2+) FACTORS: ??<130 ZERO TO ONE RISK FACTOR: ??<160 CHD RELATIVE RISK RATIO (TOTAL/HDL) 3.94 0.0 - 5.0 [facility] (CLIA# [id number]) Comment:(0.8 X AVERAGE) 02/24/2007 02/24/2007 4:1 8 PM EDT Rush Watts MD LABORATORY Final Result Performing Organization Address City/[facility]/ZIP Co de Phone Number [facility] (CLIA# [id number]) [address] [place] [address] * ASPARTATE AMINOTRANSFERASE (AST), SERUM (02/24/2007) Pathologist [facility] AST (SGOT) 17 10 - 35 U/L [facility] (CLIA# [id number]) 02/24/2007 02/24/2007 4:1 8 PM EDT Rush Watts MD LAB SAME DAY RESULT Final Resul t Performing Organization Address [facility] de Phone Number [facility] (CLIA# [id number]) [address] [place] [address] * ALANINE AMINOTRANSFERASE (ALT), SERUM (02/24/2007) ALT (SGPT) 21 6 - 40 U/L [facility] (CLIA# [id number]) 02/24/2007 02/24/2007 4:1 8 PM EDT Rush Watts MD LAB SAME DAY RESULT Final Resul t Performing Organization Address [facility] Phone Number [facility] (CLIA# [id number]) [address] [place] [address] * OCCULT BLOOD (STOOL GUAIAC) 3 SAMPLES (02/24/2007) OCCULT BLOOD GUAIAC (STOOL) SEE TEXT [facility] (CLIA# [id number]) Comment: SOURCE: STOOL NOT DETECTED OCCULT BLOOD GUAIAC (STOOL) SEE TEXT [facility] (CLIA# [id number]) Comment: SOURCE: STOOL NOT DETECTED OCCULT BLOOD GUAIAC (STOOL) SEE TEXT [facility] (CLIA# [id number]) Comment: SOURCE: STOOL NOT DETECTED 02/24/2007 02/25/2007 2:2 8 AM EDT Rush Watts MD LABORATORY Final Result Performing Organization Address [facility] de Phone Number [facility] (CLIA# [id number]) [address] [place] [address] * (ABNORMAL) BASIC METABOLIC PANEL (02/24/2007) CALCIUM 8.7 8.6 - 10.2 MG/DL [facility] (CLIA# [id number]) BUN 23 7 - 25 MG/DL [facility] (CLIA# [id number]) CREATININE 1.0 0.5 - 1.2 MG/DL [facility] (CLIA# [id number]) BUN/Creatinine Ratio 23 6 - 25 [facility] (CLIA# [id number]) Glucose 105(H) 65 - 99 MG/DL [facility] (CLIA# [id number]) SODIUM 141 135 - 146 MMOL/L [facility] (CLIA# [id number]) POTASSIUM 4.4 3.5 - 5.3 MMOL/L [facility] (CLIA# [id number]) CHLORIDE 106 98 - 110 MMOL/L [facility] (CLIA# [id number]) CARBON DIOXIDE 21 21 - 33 MMOL/L [facility] (CLIA# [id number]) 02/24/2007 02/24/2007 4:1 8 PM EDT us Rush Watts MD LAB SAME DAY RESULT Final Resul t [facility] (CLIA# [id number]) [address] [place] [address] documented in this encounter Visit Diagnoses Diagnosis ESSENTIAL HYPERTENSION, BENIGN Essential hypertension, benign GENERAL MEDICAL EXAMINATION Unspecified general medical examination PURE HYPERCHOLESTEROLEMIA Pure hypercholesterolemia HYPOTHYROIDISM Unspecified hypothyroidism 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
--- OUTSIDE RECORDS SUMMARY | 2024-10-06 15:13 | XMS_ITS ---
[facility] Address [address] [place] [address] Care Team Providers Care Chainstitch Binder Name Role Phone MateoLuzma Primary Care Provider Unavailabl e Black, Gabriella Unavailable [phone] Allergies Allergen (clinical drug ingredient) Drug/Non Drug [...] above Performing Lab: Notes/Report: See Examination above REASON FOR VISIT At Risk Footcare, Foot pain Medications Medication SIG (Take, Route, Frequency, Duration) Notes Start Date End Date Status Voltaren 1 % as directed Externally 01/15/2024 Active Losartan Potassium 100 MG TAKE 1 TABLET BY MOUTH EVERY DAY Oral for 90 Days Active metFORMIN HCl 500 MG 1000 MG (2 X 500 MG ) ORALLY 2 TIMES A DAY FOR 90 DAYS Oral for 90 Days Active Simvastatin 40 MG TAKE 1 TABLET BY CELENA TH EVERY DAY AT BEDTIME Oral for 90 Days Active Solifenacin Succinate 10 MG TAKE 1 TABLE T BY MOUTH EVERY DAY Oral for 90 Days Active Fexofenadine HCl Act katrin Fluticasone Propionate Active Gabapentin 100 MG TAKE 1 CAPSULE BY MO UTH THREE TIMES A DAY Oral for 90 Days Active Insulin Glargine 11/14/2023 Ac tive Levothyroxine Sodium 88 MCG TAKE 1 TABLE T BY MOUTH EVERY DAY IN THE MORNING Oral for 90 Days Active Cyclobenzaprine HCl 5 MG TAKE 1 TABLET O RALLY 3 TIMES A DAY NEEDED FOR MUSCLE SPASM FOR 30 DAYS Oral for 10 Days PRN Active Cyanocobalamin Activ e Aspirin Active Biotin Active Cholecalciferol Acti ve Vitamin C Active Vitamin A Active [place] 3 Active Multivitamin Active Amoxicillin 500 MG TAKE 4 CAPSULES BY M OUTH AT ONE TIME 1 HOUR BEFORE PROCEDURE Oral for 2 Days Active Copper Active Zinc Active Vitamin E Active One Touch Delica Lancets Active PreserVision AREDS A ctive Social History Tobacco Use: Social History Observation Description Date Details (start date - stop date) Former Smoker NA - NA Tobacco Use/Smoking Question Answer Notes Are you a: former smoker Additional Findings: Tobacco Non-User Current no n-smoker Alcohol Screen Question Answer Notes Did you have a drink containing alcohol in the p ast year? Yes Points 0 Interpretation Negative Tobacco use other than smoking: Question Answer Notes Are you an other tobacco user? No Problems Problem Type SNOMED Code ICD Code Onset Dates Problem Status W/U Status Risk Notes Problem Polyneuropathy due to type 2 diabetes mellitus (460443661) Type 2 diabetes mellitus with diabetic polyneuropathy (E11.42) Active confirmed Problem Osteoarthritis of midtarsal joint of left foot (4171258001491186 ) Osteoarthritis of midtarsal joint of left foot (M19.072) Active confirmed Problem Osteoarthritis of midtarsal joint of right foot (9865563363192757 ) Osteoarthritis of midtarsal joint of right foot (M19.071) Active confirmed Problem Arthritis (0068892) Arthritis (M19.90) Active confirmed Vital Signs Blood pressure systolic 123 mm Hg 01/15/20 24 Blood pressure diastolic 70 mm Hg 024 Height 5 ft 5in in 01/15/2024 Weight 240 lbs 01/15/2024 BMI 39.93 kg/m2 01/15/2024 Procedures Procedure Date Ordered Date Performed Result Body Sit e 50193-JWHF SKIN LESIONS, 2 TO 4 01/15/2024 N/A C7775-ZVGRMUIC DYSTROPHIC NAILS ANY # 01/15/2024 N/A Encounters Encounter Location Date Provider Diagnosis [facility] [address] [place] [address] 01/15/2024 Gabriella Delvalle Type 2 diabetes mellitus with [...] foot M77.42 and Metatarsalgia, right foot M77.41 Assessments Encounter Date Diagnosis (ICD Code) Assessment Notes Treatment Notes Treatment Clinical Notes Section Notes 01/15/2024 Type 2 diabetes mellitus with diabetic polyneuropathy (ICD-10 - E11.42) 01/15/2024 Tinea unguium (ICD-10 - B35.1) 01/15/2024 Pain in left foot (ICD-10 - M79.672) 01/15/2024 Pain in left ankle and joints of left foot (ICD-10 - M25.572) 01/15/2024 Bursitis of left foot (ICD-10 - M77.52) 01/15/2024 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) 01/15/2024 Pain in right foot (ICD-10 - M79.671) 01/15/2024 Pain in right ankle and joints of right foot (ICD-10 - M25.571) 01/15/2024 Bursitis of right foot (ICD-10 - M77.51) 01/15/2024 Osteoarthritis of midtarsal joint of right foot (ICD-10 - M19.071) 01/15/2024 Arthritis (ICD-10 - M19.90) 01/15/2024 Metatarsalgia, left foot (ICD-10 - M77.42) 01/15/2024 Metatarsalgia, right foot (ICD-10 - M77.41) Plan Of Treatment Medication Medication Name Sig Start Date Stop Date Notes Voltaren 1 % as directed Externally 01/15/2024 Pending Test Test Name Order Date 07678-IPWQ SKIN LESIONS, 2 TO 4 01/15/20 U1912-XRNMNOVH DYSTROPHIC NAILS ANY # Next Appt Details Follow Up: prn, Reason: Provider Name:Gabriella Delvalle , 11/11/2024 02:15:00 PM, [address] [place], [address], Procedure Notes * Category Sub-Category Detail Notes Keratoma Treatment Parring or Cutting o f Benign Hyperkeratotic Lesion(s) 44190 ( 2-4 Lesions ) - The Benign hyperkeratotic lesions, as described above were pared, and/or cut utilizing a sterile 15 blade, tissue nippers, and/or dremel Nail Reduction Nail Reduction Trimming of dyst rophic nails performed to reduce/remove overall nail length and girth, by manual and electrical means with use of a nail nipper and/or dremel, to more viable healthy nail plate or bed tissue 6-10 (G0127) Progress Notes * Wilmer NOVAKOB:1935 (88 yo F)Acc No.[id number]:01/15/2024 Progress Notes Patient:?Vanessa Novak Provider:?Gabriella Delvalle DPM :1935???Age:88 Y???Sex:Female D ate:01/15/2024 Address:[address] [place] [address], [address] Pcp:Luzma Galindo Subjective: * Chief Complaints: * ???At Risk FootcareFoot pain * HPI: ???At Risk footcare:?Pt States Last PCP Visit:?Date?10/01/2023 ???Foot Pain:?Nature:?aching , stiffness , swelling , throbbing.?Location:?Outside, , Midfoot, B/L.?Duration:?, several months.?Course:?worse.?Treatments:?rest/alter normal daily activity.? * ROS:?General/Constitutional:?Nausea?denies.?Vomiting?denies.?Hunger Thirst?denies.?Loss appetite?denies.?Chills?denies.?Fatigue?admits.?Fever?denies.?Night Sweats?denies.?Unexplained weight loss?denies.?Unexplained weight gain?denies.?HEENTM:?Dentures?denies.?Dizziness?denies.?Glasses/contacts?admits.?Retinopathy?de nies.?Blurred/double vision?admits.?TMJ?denies.?Discharge/drainage?denies.?Implants?denies.?Sore throat?denies.?Dental implants?admits.?Hard of hearing ?denies.?Difficulty chewing/swallowing/speaking?denies.?Nose bleeds?denies.?Sore mouth?denies.?Respiratory:?On Oxygen?denies.?Pneumonia/pleurisy?denies.?Bronchitis?denies.?Emphysema?denies.?C oughing?denies.?Cough blood?denies.?Shortness of breath?admits.?Wheezing?denies.?Cardiovascular:?Pacemaker?denies.?MVP?denies.?WPW?denies.?CHF?denies.?Heart attack?denies.?Septal defect?denies.?Rapid beat?denies.?Chest pain ?denies.?Atrial Fib.?denies.?Murmur/Palpitations?denies.?Gastrointestinal:?Hemorrhoids?denies.?Stomach/Abdominal pain?denies.?Dark blood stool?denies.?Irritable bowel ?denies.?Constipation?denies.?Diarrhea?denies.?Hematology:?Swelling?denies.?Clots?denies.?Varicose Veins?denies.?Bruising?denies.?Bleeding problem?denies.?Genitourinary:?Blood urine?denies.?Frequent/Painfu/urination/bladder control?admits.?Kidney stones?denies.?Infection (UTI)?admits.?Nephropathy?denies.?sex trans dis (STD)?denies.?Prostate?denies.?Musculoskeletal:?Hammertoes?denies.?Bunions?denies.?Back Pain?denies.?Muscle Cramps/ Resting?denies.?Muscle cramps / walking?denies.?Generalized aches and pains?admits.?Weakness?denies.?Integ.:?Jaramillo?denies.?Scars?denies.?Corns/calluses?denies.?Ingrown nails?denies.?Painful nails?denies.?Open Sores?denies.?Rashes?denies.?Neurologic:?Difficulty sleeping?denies.?Brain disorder?denies.?Numbness?admits.?Balance trouble?denies.?Confusion?denies.?Fainting/blackouts?denies.?Tingling?denies.?Tr emors?denies.? * Medical History:? * Surgical History:?appendecto my 06/1962hysterectomy 1971Gall bladder removal 2009knee surgery, right 04/09/2010knee surgery, left 07/2010cataract surgery, left 02/10/2017cataract surgery, right 03/03/2017 * Hospitalization/Major Diagno stic Procedure:?Denies Past Hospitalization * Family History:?Mother: dece ased, diagnosed with Diabetic - NIDDM, Other malignant neoplasm of unspecified site.?Father: , diagnosed with Unspecified heart disease.?Siblings: foot problems, stroke, diagnosed with Other malignant neoplasm of unspecified site, Diabetic - NIDDM, Unspecified essential hypertension.? * Social History:?Tobacco Use:?Tobacco Use/Smoking?Are you a:?former smoker ?Additional Findings: Tobacco Non-User?Current non-smoker ?Tobacco use other than smoking?Are you an other tobacco user??No ???Drugs/Alcohol:?Drugs?Have you used drugs other than those for medical reasons in the past 12 months??No ?Alcohol Screen?Did you have a drink containing alcohol in the past year??Yes ?Points?0 ?Interpretation?Negative ???Miscellaneous:?Caffeine: yes, 1-2 cups per day. ?no Children. ?no Exercise. ?Marital status: single. 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 * Medications:?TakingOne Touch Delica Lancets PreserVision AREDS Copper Zinc Vitamin E Vitamin C Vitamin A [place] 3 Multivitamin Amoxicillin 500 MG Capsule TAKE 4 CAPSULES BY MOUTH AT ONE TIME 1 HOUR BEFORE PROCEDURE Oral Aspirin Biotin Cholecalciferol Cyclobenzaprine HCl 5 MG Tablet TAKE 1 TABLET ORALLY 3 TIMES A DAY NEEDED FOR MUSCLE SPASM FOR 30 DAYS Oral , Notes: PRNCyanocobalamin Fexofenadine HCl Fluticasone Propionate Gabapentin 100 MG Capsule TAKE 1 CAPSULE BY MOUTH THREE TIMES A DAY Oral Insulin Glargine Levothyroxine Sodium 88 MCG Tablet TAKE 1 TABLET BY MOUTH EVERY DAY IN THE MORNING Oral Losartan Potassium 100 MG Tablet TAKE 1 TABLET BY MOUTH EVERY DAY Oral metFORMIN HCl 500 MG Tablet 1000 MG (2 X 500 MG) ORALLY 2 TIMES A DAY FOR 90 DAYS Oral Simvastatin 40 MG Tablet TAKE 1 TABLET BY MOUTH EVERY DAY AT BEDTIME Oral Solifenacin Succinate 10 MG Tablet TAKE 1 TABLET BY MOUTH EVERY DAY Oral Medication List reviewed and reconciled with the patientTaking One Touch Delica Lancets Taking PreserVision AREDS Taking Copper Taking Zinc Taking Vitamin E Taking Vitamin C Taking Vitamin A Taking [place] 3 Taking Multivitamin Taking Amoxicillin 500 MG Capsule TAKE 4 CAPSULES BY MOUTH AT ONE TIME 1 HOUR BEFORE PROCEDURE Oral Taking Aspirin Taking Biotin Taking Cholecalciferol Taking Cyclobenzaprine HCl 5 MG Tablet TAKE 1 TABLET ORALLY 3 TIMES A DAY NEEDED FOR MUSCLE SPASM FOR 30 DAYS Oral , Notes: PRNTaking Cyanocobalamin Taking Fexofenadine HCl Taking Fluticasone Propionate Taking Gabapentin 100 MG Capsule TAKE 1 CAPSULE BY MOUTH THREE TIMES A DAY Oral Taking Insulin Glargine Taking Levothyroxine Sodium 88 MCG Tablet TAKE 1 TABLET BY MOUTH EVERY DAY IN THE MORNING Oral Taking Losartan Potassium 100 MG Tablet TAKE 1 TABLET BY MOUTH EVERY DAY Oral Taking metFORMIN HCl 500 MG Tablet 1000 MG (2 X 500 MG) ORALLY 2 TIMES A DAY FOR 90 DAYS Oral Taking Simvastatin 40 MG Tablet TAKE 1 TABLET BY MOUTH EVERY DAY AT BEDTIME Oral Taking Solifenacin Succinate 10 MG Tablet TAKE 1 TABLET BY MOUTH EVERY DAY Oral Medication List reviewed and reconciled with the patient * Allergies:?Lisinoprilyes[All ergies Verified] Objective: * Vitals:?Ht: 5 ft 5in, Wt: 24 0, BMI: 39.93, Shoe size: 10.5W, BP: 123/70 mm Hg, BS: 110, Ht-cm: 165.1 cm, Wt-k.86 kg. * ???Past Orders: ???Lab:HEMOGLOBIN A1C (GLYCO HEMOGLOBIN) (Order Date - 09/19/2023) (Collection Date - 09/19/2023) ? Value Reference Range ?HEMOGLOBIN A1C (HH) 6.6 * Examination: ???Ophthalmology Referral: ?DIABETES EYE EXAM?Diabetic Retinopathy Screening:?Yes ?Findings of Diabetic Eye Exam:?no retinopathy?General Examination: ?GENERAL APPEARANCE:?Reveals a pleasant, alert, well nourished, well- developed, well hydrated individual, who demonstrates proper attention to hygiene/body habitus, and is in no acute distress, Pt serves as own historian for office visit today.?ORIENTED:?person, place, and time.?FOOT EXAM:?Lower Extremity Neurological Exam performed:?Yes ?Visual exam of foot performed:?Yes ?Date?01/15/2024 ?Sensory testing performed:?sensations diminished ?Sensory and motor testing performed:?sensations diminished ?Footwear Evaluation?Footwear Evaluation performed:?Yes?Neurological: ?SENSORY:?Neurological exam demonstrates reduced sharp/dull pin prick discrimination reduced light touch sensation reduced vibration sensation reduced proprioception sensation in a stocking fashion 5.07 monofilament test performed at plantar aspects of 5 varied sites per foot shows sensation plantar aspects absent at Forefoot B/L.?TINEL'S COMPRESSION:? Negative, Medial dorsal cutaneous nerve distribution, Intermediate dorsal cutaneous nerve distribution, Deep peroneal nerve distribution, B/L.?Nails: ?NAILS are:?Elongated, overgrown, dystrophic , 2-5 B/L.?Dermatologic: ?SKIN FINDINGS:?Skin exam reveals Keratotic lesion(s) located at , IPJ , TA , T5 , Medial plantar.?Vascular: ?DP PULSES:?2/4, B/L.?PT PULSES:?1/4, B/L.?CAPILLARY FILL TIME:?immediate, all digits, B/L.?SKIN TEMPERTURE GRADIENT OF THE LOWER EXTERMITIES:?normal, warm to cool, proximal to distal, B/L, B/L.?HAIR GROWTH/TEXTURE/ELASTICITY/TURGOR:?normal, B/L.?PIGMENTATION:?normal, B/L.?EDEMA:?2/4 , B/L.?Orthopedic: ?MUSCLE STRENGTH:?5/5 all groups in a symmetrical fashion, B/L.?GAIT ABNORMALITY:?Pronated , abducted angle and base of gate , B/L.?FOOT MORPHOLOGY:? Prominent, painful 1st Met-Cuneiform joint with inflammation, B/L.?DIGITAL DEFORMITIES:?Digital contracture, PIPJ, 2-5 B/L, incompl-reducible with WB, or to push-up test, no over, nor underlapping.?MPJ PATHOLOGY:?Pain on Metatarsal Palpation 5th b/l , POP lateral midfoot cuboid area.?X-Rays - IMAGING REPORT: ?Clinical Indication(s):? Evaluate for Fracture, Evaluate Biomechanical Deformity.?Views:? 3 views of Foot, AP, LAT, LO, B/L.?Findings:?mild generalized decrease in bone density , , positive retro-calcaneal exostosis , hypertrophy of 5th MT Base/Styloid process , hypertrophy 5th MTH b/l , dorsal degenerative changes of the tarsal joints.?Foot structure:?reveals excess pronation with , anterior break in cyme line.?Digits:?show asymmetrical joint space narrowing at the PIPJ consistent with clinical finding of hammertoe deformity, show enlarged/hypertrophied phalangeal head(s) consistent for clinical finding of hammertoe deformity.?Fracture:?Negative fractures identified.? Assessment: * Assessment: 1.?Type 2 diabetes mellitus with diabetic polyneuropathy - E11.42 (Primary)?2.?Tinea unguium - B35.1?3.?Pain in left foot - M79.672?4.?Pain in left ankle and joints of left foot - M25.572?5.?Bursitis of left foot - M77.52?6.?Osteoarthritis of midtarsal joint of left foot - M19.072?7.?Pain in right foot - M79.671?8.?Pain in right ankle and joints of right foot - M25.571?9.?Bursitis of right foot - M77.51?10.?Osteoarthritis of midtarsal joint of right foot - M19.071?11.?Arthritis - M19.90 12.?Metatarsalgia, left foot - M77.42?13.?Metatarsalgia, right foot - M77.41? Plan: * Treatment: 2.?Pain in left foot?Imaging: X ray : Foot, left 3V?See Examination above 3.?Osteoarthritis of midtars al joint of left foot? Start Voltaren Gel, 1 %, as directed, Externally.?? 4.?Pain in right foot?Imaging: X ray : Foot, right 3V?See Examination above * Procedures:?Keratoma Treatment:?Parring or Cutting of Benign Hyperkeratotic Lesion(s)?85767 ( 2-4 Lesions ) - The Benign hyperkeratotic lesions, as described above were pared, and/or cut utilizing a sterile 15 blade, tissue nippers, and/or dremel.?Nail Reduction:?Nail Reduction?Trimming of dystrophic nails performed to reduce/remove overall nail length and girth, by manual and electrical means with use of a nail nipper and/or dremel, to more viable healthy nail plate or bed tissue 6-10 (G0127).? * Procedure Codes:?09091 X-RAY EXAM OF LEFT FOOT 3V, Modifiers: 26 , CL83812 X-RAY EXAM OF RIGHT FOOT 3V, Modifiers: 26 , [id number] TRIM SKIN LESIONS, 2 TO 4, Modifiers: XS G0127 TRIMMING DYSTROPHIC NAILS ANY #, Modifiers: XS * Preventive Medicine:? ??Counseling:?Discussion:?-04: Office or other outpatient visit for the evaluation and management of a new patient, which required a medically appropriate history and/or examination and MODERATE level of DECISION MAKING for: 1 OR MORE CHRONIC PROBLEM(S) THATS WORSENING, 2 STABLE CHRONIC PROBLEMS, A NEWLY DIAGNOSED PROBLEM WITH UNCERTAIN PROGNOSIS, AN ACUTE COMPLICATED INJURY WITH MULTIPLE TREATMENT OPTIONS, OR AN ACUTE PROBLEM WITH ACCOMPANYING SYSTEMIC SYMPTOMS, THAT POSE(S) A MODERATE RISK OF MORBIDITY. THIS CONDITION MAY ALSO INCLUDE RX DRUG MANAGEMENT, OR A DECISON FOR MINOR SURGERY. The visit on the day of the encounter encompassed interpreting the data and educating the patient as to the nature of their condition, treatment options available according to their individual PMH, meds, allergies, and overall health/living conditions, as well as any potential risks or complications that may occur from a failure to adhere to, and participate in, the recommended course of therapy. The discussion included a complete verbal, and/or written explanation of the examination results, any x-rays taken, the proposed diagnosis, and outline of the treatment plan. A schedule for future care needs was also explained. The patient verbalized an understanding of the instructions at this time and agreed to be an active participant in their treatment. If the patient should think of any questions or concerns after the visit, I have encouraged the patient to call the office.?Arthritis:?The patient was counseled on the various etiologies for their Arthritis including genetic, history of injury or trauma, abnormal foot biomechanics leading to excessive joint wear, and use/overuse. We discussed the various treatment options from no treatment, to topical analgesics such as Biofreeze gel, Aspercream, Voltaren gel, Lidoderm patches, CBD oils, THC creams, and Custom-compounded topical cream preparations to natural oral products such as Glucosamine Sulfate/Chondroitin/MSM/Collegen to analgesic Tylenol, to anti-inflammatory medications such as Ibuprofen/Naproxen, and the use of oral steroids if needed. Cardiac, Kidney, and GI issues were discussed RE: potential complications of oral anti-inflammatories. We discussed several other treatment options consisting of accom shoes, supportive innersoles, AFO bracing/support, cortisone injection therapy, and surgical resection of the arthritic joint(s) or fusion reconstruction if necessary. We discussed the advantages and disadvantages of conservative (vs) surgical treamtents including pain relief, improved function/activities of daily life, return to exercise to failure, expense, systemic complications, infection, [id number], prolongued postop course. Patient questions re: the various treatment options available, their successes and potential failures, and care home effects were discussed and the answers were verbally confirmed understood, The Pt. was counseled on the x-rays,treatment options, and the importance of following all homecare instructions, Recommended Topical analgesics including Biofreeze/Aspercream/Voltaren gel.?BioMech.:?I discussed the Pts foot biomechanics with them and how it relates to their problem, Discussed and reviewed the X-rays with the patient. We discussed how the findings relate to the patients symptoms/complaints. Answered any and all questions., The patient and I reviewed the types of shoes they should be wearing; my recommendation includes obtaining a shoe with a good firm sole, plenty of toe room, and proper arch support.?Steriod Injection:?I explained that a steroid and local anesthetic injections are administered to relieve pain and inflammation and thereby meant to improve function. I explained the possible complications including but not limited to signs/symptoms of steroid flare, infection, bruising, atrophy, discoloration of skin, change/deviation in toe position, and that additional injections may be necessary, cortisone post-injection informative educational handout was dispensed to and reviewed with the patient, Pt defers injection today.? * Follow Up:?prn * Images: * Sign off status: Completed true * Provider:Chelsey Delvalle DPM Date:?2023 Generated for Car palomares/Miller/Jenniferitting on:?10/06/2024 03:12 PM EDT History and Physical Notes * HPI (History of Present Illness) Category Sub-Category Detail Notes Category Not es At Risk footcare Pt States Last PCP Visit: Date: 4 Foot Pain Nature: aching , stiffne ss , swelling , throbbing Location: Outside, , Midfoot, B/L Duration: , several months Course: worse Treatments: rest/alter normal da jacqueline activity Examination Category Sub-Category Detail Notes Category Not es Neurological SENSORY: Neurological exa m demonstrates reduced sharp/dull pin prick discrimination reduced light touch sensation reduced vibration sensation reduced proprioception sensation in a stocking fashion 5.07 monofilament test performed at plantar aspects of 5 varied sites per foot shows sensation plantar aspects absent at Forefoot B/L TINEL'S COMPRESSION: Negative, Medial do rsal cutaneous nerve distribution, Intermediate dorsal cutaneous nerve distribution, Deep peroneal nerve distribution, B/L Dermatologic SKIN FINDINGS: Skin exam reveal s Keratotic lesion(s) located at , IPJ , TA , T5 , Medial plantar Orthopedic GAIT ABNORMALITY: Pronated , abducted ang le and base of gate , B/L FOOT MORPHOLOGY: Prominent, painful 1 st Met-Cuneiform joint with inflammation, B/L DIGITAL DEFORMITIES: Digital contracture , PIPJ, 2-5 B/L, incompl-reducible with WB, or to push-up test, no over, nor underlapping MPJ PATHOLOGY: Pain on Metatarsal P alpation 5th b/l , POP lateral midfoot cuboid area MUSCLE STRENGTH: 5/5 all groups in a symmetrical fashion, B/L General Examination GENERAL APPEARANCE: Reveals a pleasant, alert, well nourished, well-developed, well hydrated individual, who demonstrates proper attention to hygiene/body habitus, and is in no acute distress, Pt serves as own historian for office visit today FOOT EXAM: Lower Extremity Neurological Exa m performed:: Yes Visual exam of foot performed:: Yes Date: 01/15/2024 Sensory testing performed:: sensations d iminished Sensory and motor testing performed:: se nsations diminished ORIENTED: person, place, and t geoff Footwear Evaluation Footwear Evaluation performe d:: Yes Ophthalmology Referral DIABETES EYE EXAM Diabetic Retinopa thy Screening:: Yes Findings of Diabetic Eye Exam:: no retin opathy Vascular DP PULSES (B): 2/4, B/L PT PULSES (B): 1/4, B/L CAPILLARY FILL TIME: immediate, all digi ts, B/L TEMPERTURE GRADIENT (C): normal, warm to cool, proximal to distal, B/L, B/L TROPHIC CONDITION-TEXTURE/ELASTICITY/TURGOR/HAIR GROWTH (B): normal, B/L EDEMA (C): 2/4 , B/L PIGMENTATION: normal, B/L Nails NAILS are: Elongated, overgrown, dystro phic , 2-5 B/L X-Rays - IMAGING REPORT Findings: mild gen eralized decrease in bone density , , positive retro-calcaneal exostosis , hypertrophy of 5th MT Base/Styloid process , hypertrophy 5th MTH b/l , dorsal degenerative changes of the tarsal joints Fracture: Negative fractures i dentified Digits: show asymmetrical adenike int space narrowing at the PIPJ consistent with clinical finding of hammertoe deformity, show enlarged/hypertrophied phalangeal head(s) consistent for clinical finding of hammertoe deformity Foot structure: reveals excess prona tion with , anterior break in cyme line Views: 3 views of Foot, AP, LAT, LO, B/L Clinical Indication(s): Evaluate for Fra cture, Evaluate Biomechanical Deformity
--- OUTSIDE RECORDS SUMMARY | 2024-10-06 15:13 | XMS_ITS ---
Author Organization [facility] Address [address] [place] [address] Care Team Providers Care Clinical Program Coordinator Name Role Phone MateoLuzma Primary Care Provider Unavailabl e Black, Gabriella Unavailable [phone] Allergies Allergen (clinical drug ingredient) Drug/Non Drug Allergy documented on EMR Reaction Allergy Type Onset Date Status lisinopril Lisinopril Unknown Drug Allergy Activ e REASON FOR VISIT At Risk Footcare, Foot pain Medications Medication SIG (Take, Route, Frequency, Duration) Notes Start Date End Date Status Voltaren 1 % as directed Externally 01/15/2024 Active Solifenacin Succinate 10 MG TAKE 1 TABLE T BY MOUTH EVERY DAY Oral for 90 Days Active Simvastatin 40 MG TAKE 1 TABLET BY CELENA TH EVERY DAY AT BEDTIME Oral for 90 Days Active metFORMIN HCl 500 MG 1000 MG (2 X 500 MG ) ORALLY 2 TIMES A DAY FOR 90 DAYS Oral for 90 Days Active Losartan Potassium 100 MG TAKE 1 TABLET BY MOUTH EVERY DAY Oral for 90 Days Active Levothyroxine Sodium 88 MCG TAKE 1 TABLE T BY MOUTH EVERY DAY IN THE MORNING Oral for 90 Days Active Insulin Glargine 11/14/2023 Ac tive Gabapentin 100 MG TAKE 1 CAPSULE BY MO UTH THREE TIMES A DAY Oral for 90 Days Active Fluticasone Propionate Active Fexofenadine HCl Act katrin Cyclobenzaprine HCl 5 MG TAKE 1 TABLET O RALLY 3 TIMES A DAY NEEDED FOR MUSCLE SPASM FOR 30 DAYS Oral for 10 Days PRN Active Cholecalciferol Acti ve Biotin Active Aspirin Active Cyanocobalamin Activ e Amoxicillin 500 MG TAKE 4 CAPSULES BY Nate CERVANTES AT ONE TIME 1 HOUR BEFORE PROCEDURE Oral for 2 Days Active Multivitamin Active Weston 3 Active Vitamin A Active Vitamin C Active Copper Active PreserVision AREDS A ctive One Touch Delica Lancets Active Vitamin E Active Zinc Active Social History Tobacco Use: Social History Observation Description Date Details (start date - stop date) Former Smoker NA - NA Tobacco Use/Smoking Question Answer Notes Are you a: former smoker Additional Findings: Tobacco Non-User Current no n-smoker Tobacco use other than smoking: Question Answer Notes Are you an other tobacco user? No Vital Signs Blood pressure systolic 128 mm Hg 04/22/20 24 Blood pressure diastolic 58 mm Hg 024 Height 5 ft 5in in 04/22/2024 Weight 241 lbs 04/22/2024 BMI 40.1 kg/m2 04/22/2024 Procedures Procedure Date Ordered Date Performed Result Body Sit e 13625-BVLO SKIN LESIONS, 2 TO 4 04/22/2024 N/A 38454, U9128-NANGP/INJECT, JOINT/BURSA 04/22/2024 N/A Z9938-AKSKEGOU DYSTROPHIC NAILS ANY # 04/22/2024 N/A Encounters Encounter Location Date Provider Diagnosis [facility] [address] [place] [address] 04/22/2024 Gabriella Black Type 2 diabetes mellitus with [...] Treatment Notes Treatment Clinical Notes Section Notes 04/22/2024 Type 2 diabetes mellitus with diabetic polyneuropathy (ICD-10 - E11.42) 04/22/2024 Tinea unguium (ICD-10 - B35.1) 04/22/2024 Pain in left foot (ICD-10 - M79.672) 04/22/2024 Pain in left ankle and joints of left foot (ICD-10 - M25.572) 04/22/2024 Bursitis of left foot (ICD-10 - M77.52) 04/22/2024 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) Patient Educated with: INJECTIONTHER APY.pdf (INJECTIONTHE RAPY.pdf) 04/22/2024 Pain in right foot (ICD-10 - M79.671) 04/22/2024 Pain in right ankle and joints of right foot (ICD-10 - M25.571) 04/22/2024 Bursitis of right foot (ICD-10 - M77.51) 04/22/2024 Osteoarthritis of midtarsal joint of right foot (ICD-10 - M19.071) 04/22/2024 Arthritis (ICD-10 - M19.90) 04/22/2024 Metatarsalgia, left foot (ICD-10 - M77.42) 04/22/2024 Metatarsalgia, right foot (ICD-10 - M77.41) Plan Of Treatment Treatment Notes Assessment Notes Osteoarthritis of midtarsal joint of lef t foot Patient Educated with: INJECTIONTHERAPY.pdf (INJECTIONTHERAPY.pdf) Pending Test Test Name Order Date 75087-HTBJ SKIN LESIONS, 2 TO 4 04/22/20 24 , U0348-UNHKH/INJECT, JOINT/BURSA 1 R7557-XMZVPTSN DYSTROPHIC NAILS ANY # Next Appt Details Follow Up: prn, Reason: Provider Name:Gabriella Delvalle , 11/11/2024 02:15:00 PM, [address] [place] [address], [place], [phone], Procedure Notes * Category Sub-Category Detail Notes Injection Sm. Joint, Bursa , J0702 In jection - sm/med joint bursa/capsule with 1cc of 1 percent Xylo.pl with 3mg Celestone Soluspan utilizing aseptic technique. The patient tolerated the procedure well. A dry sterile dressing was applied. Post injection instructions were dispensed, verbally discussed, and confirmed understood by the patient. I explained that a steroid and local anesthetic injection usually decreases pain and inflammation. I explained the possible complications including but not limited to signs/symptoms of steroid flare, change/deviation in toe position, infection, bruising, atrophy, discoloration of skin, and that additional injections may be necessary. Patient relates post-procedural pain assessment improved at ( 0-1) out of 10 , LEFT , DM: Discussed the transient elevated effects an injection of cortisone may have on the patient's blood sugars Keratoma Treatment Parring or Cutting o f Benign Hyperkeratotic Lesion(s) 85908 ( 2-4 Lesions ) - The Benign [...] Notes * Wilmer NOVAKOB:1935 (88 yo F)Acc No.[id number]:04/22/2024 Progress Note Patient:?Vanessa Novak Provider:?Gabriella Delvalle DPM :1935???Age:88 Y???Sex:Female D ate:04/22/2024 Address:[address] [place] [address], [facility] [address], [facility] Pcp:Luzma Galindo Subjective: * Chief Complaints: * ???At Risk FootcareFoot pain * HPI: ???At Risk footcare:?Pt States Last PCP Visit:?Date?04/07/2024 ???Foot Pain:?Nature:?aching , stiffness , swelling , throbbing.?Location:?Outside, , Midfoot, B/L , Left > Right.?Duration:?, several months.?Course:?worse.?Treatments:?rest/alter normal daily activity.? * ROS:?General/Constitutional:?Nausea?denies.?Vomiting?denies.?Hunger [...] heart disease.?Siblings: foot problems, stroke, diagnosed with Diabetic - NIDDM, Unspecified essential hypertension, Other malignant neoplasm of unspecified site.? * Social History:?Tobacco Use:?Tobacco Use/Smoking?Are you a:?former smoker ?Additional Findings: Tobacco Non-User?Current non-smoker ?Tobacco use other than smoking?Are you an other tobacco user??No ???Miscellaneous:?Caffeine: yes, 1-2 cups per day. ?no Children. ?no Exercise. ?Marital status: single. 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 * Medications:?TakingOne Touch Delica Lancets PreserVision AREDS Copper Zinc Vitamin E Vitamin C Vitamin A Weston 3 Multivitamin Amoxicillin 500 MG Capsule TAKE [...] 1 TABLET BY MOUTH EVERY DAY Oral Voltaren 1 % Gel as directed Externally Medication List reviewed and reconciled with the patientTaking One Touch Delica Lancets Taking PreserVision AREDS Taking Copper Taking Zinc Taking Vitamin E Taking Vitamin C Taking Vitamin A Taking Weston 3 Taking Multivitamin Taking Amoxicillin 500 MG [...] TABLET BY MOUTH EVERY DAY Oral Taking Voltaren 1 % Gel as directed Externally Medication List reviewed and reconciled with the patient * Allergies:?Lisinoprilyes[All ergies Verified] Objective: * Vitals:?Ht: 5 ft 5in, Wt: 24 1, BMI: 40.1, Shoe size: 10.5W, BP: 128/58 mm Hg, BS: 141, Ht-cm: 165.1 cm, Wt-k.32 kg. * ???Past Orders: ???Lab:HEMOGLOBIN A1C (GLYCO HEMOGLOBIN) (Order Date - 04/07/2024) (Collection Date - 04/07/2024) ? Value Reference Range ?TOTAL HEMOGLOBIN (HGBA1C) 7.1 * Examination: ???Ophthalmology Referral: ?DIABETES EYE EXAM?Diabetic Retinopathy Screening:?Yes ?Findings of Diabetic Eye Exam:?no retinopathy?Neurological: ?SENSORY:?Neurological exam demonstrates reduced sharp/dull pin prick discrimination reduced light touch sensation reduced vibration sensation reduced proprioception sensation in a stocking fashion 5.07 monofilament test performed at plantar aspects of 5 varied sites per foot shows sensation plantar aspects absent at Forefoot B/L.?Nails: ?NAILS are:?Elongated, overgrown, dystrophic , 2-5 B/L.?Dermatologic: ?SKIN FINDINGS:?Skin exam reveals Keratotic lesion(s) located at , IPJ , TA , T5 , Medial plantar.?Vascular: ?DP PULSES(B):?2/4, B/L.?PT PULSES(B):?1/4, B/L.?Orthopedic: ?MUSCLE STRENGTH:?5/5 all groups in a symmetrical fashion, B/L.?GAIT ABNORMALITY:?Pronated , abducted angle and base of gate , B/L.?FOOT MORPHOLOGY:? Prominent, painful 1st Met-Cuneiform joint with inflammation, B/L.?DIGITAL DEFORMITIES:?Digital contracture, PIPJ, 2-5 B/L, incompl-reducible with WB, or to push-up test, no over, nor underlapping.?MPJ PATHOLOGY:?Pain on Metatarsal Palpation 5th b/l , POP lateral midfoot cuboid area left foot.? Assessment: * Assessment: 1.?Type 2 diabetes mellitus [...] right foot - M77.41? Plan: * Treatment: 2.?Osteoarthritis of midtars al joint of left foot?Procedure: -DRAIN/INJECT, JOINT/BURSA Notes: Patient Educated with: INJECTIONTHERAPY.pdf (INJECTIONTHERAPY.pdf)?? * Procedures:?Injection:?Sm. Joint, Bursa?, Injection - sm/med joint bursa/capsule with 1cc of 1 percent Xylo.pl with 3mg Celestone Soluspan utilizing aseptic technique. The patient tolerated the procedure well. A dry sterile dressing was applied. Post injection instructions were dispensed, verbally discussed, and confirmed understood by the patient. I explained that a steroid and local anesthetic injection usually decreases pain and inflammation. I explained the possible complications including but not limited to signs/symptoms of steroid flare, change/deviation in toe position, infection, bruising, atrophy, discoloration of skin, and that additional injections may be necessary. Patient relates post-procedural pain assessment improved at ( 0-1) out of 10 , LEFT , DM: Discussed the transient elevated effects an injection of cortisone may have on the patient's blood sugars.?Keratoma Treatment:?Parring or Cutting of Benign Hyperkeratotic Lesion(s)?58392 ( 2-4 Lesions ) - The Benign [...] or bed tissue 6-10 (G0127).? * Procedure Codes:?38026 TRIM SKIN LESIONS, 2 TO 4, Modifiers: XS G0127 TRIMMING DYSTROPHIC NAILS ANY #, Modifiers: XS J0702 INJ BETAMETHSN ACTAT&SOD PHOSPH- [id number] DRAIN/INJECT, JOINT/BURSA, Modifiers: XS * Preventive Medicine:? ??Counseling:?Discussion:?-14: Office or other outpatient visit for the evaluation and management of an established patient, which required a medically appropriate history [...] have encouraged the patient to call the office.?Arthritis:?Discussed other tx options for the patients condition, Pt would like to move forward wiuth injection therapy . Recomm. left foot only due to potential increase in blood sugars., recommend pt alter the lacing of their shoes to avoid pressure on painful midfoot, Recommended Cont. Topical analgesics including Voltaren gel.? * Follow Up:?prn * Images: * Sign off status: Completed true * Provider:?Gabriella Delvalle DPM Date:?2023 Generated for Car palomares/Miller/Mikey on:?10/06/2024 03:12 PM EDT History and Physical Notes * HPI (History of Present Illness) Category Sub-Category Detail Notes Category Not es At Risk footcare Pt States Last PCP Visit: Date: 4 Foot Pain Nature: aching , stiffne ss , swelling , throbbing Location: Outside, , Midfoot, B/L , Left > Right Duration: , several months Course: worse Treatments: [...] sensation plantar aspects absent at Forefoot B/L Dermatologic SKIN FINDINGS: Skin exam reveal s Keratotic lesion(s) located at , IPJ , TA , T5 , Medial plantar Orthopedic GAIT ABNORMALITY: Pronated , abd ucted angle and base of gate , B/L FOOT MORPHOLOGY: Prominent, painful 1 st Met-Cuneiform joint with inflammation, B/L DIGITAL DEFORMITIES: Digital contracture , PIPJ, 2-5 B/L, incompl-reducible with WB, or to push-up test, no over, nor underlapping MPJ PATHOLOGY: Pain on Metatarsal P alpation 5th b/l , POP lateral midfoot cuboid area left foot MUSCLE STRENGTH: 5/5 all groups in a symmetrical fashion, B/L Ophthalmology Referral DIABETES EYE EXAM Diabetic Retinopa thy Screening:: Yes Findings of Diabetic Eye Exam:: no retin opathy Vascular DP PULSES (B): 2/4, B/L PT PULSES (B): 1/4, B/L Nails NAILS are: Elongated, overgrown, dystro phic , 2-5 B/L
--- OUTSIDE RECORDS SUMMARY | 2024-10-06 15:13 | XMS_ITS | Encounter Summary ---
Author Organization [facility] Address [address] [place] [address] Care Team Providers Care Gas Fitter Apprentice Name Role Phone Rush Watts MD Primary Care Provider [phone] Encounter Details Date Type Department Care Team (Late st Contact Info) Description 03/09/2009 Orders Only [facility] [address] [place] [address] Rush Watts MD [facility] [address] [place] [address] Social History Tobacco Use Types Packs/Day Years [...] on file documented as of this encounter Progress Notes * Rush Watts MD - 03/12/2009 4:34 PM EDTQuick Note: Will review all labs with pt at f/u OV on 03/15 documented in this encounter Plan of Treatment Not on file documented as of this encounter Procedures * Due to [place] state law, this organization might not be sharing negative HIV tests. Procedure Name Priority Date/Time Associated Diagnosis Comments HEMOGLOBIN A1C Routine 03/09/2009 DM w/o Complication Type II CARDIAC RISK/LIPID PROFILE I Routine 03/09/2009 Pure Hypercholesterolemia BASIC METABOLIC PANEL Routine 03/09/2009 Essential Hypertension, Benign MICROALBUMIN (RANDOM URINE) Routine 03/09/2009 DM w/o Complication Type II CBC 5 PART DIFF Routine 03/09/2009 DM w/o Complication Type II ALANINE AMINOTRANSFERASE (ALT), SERUM Routine 03/09/2009 Pure Hypercholesterolemia ASPARTATE AMINOTRANSFERASE (AST), SERUM Routine 03/09/2009 Pure Hypercholesterolemia TSH, THYROTROPIN Routine 03/09/2009 Hypothyroidism CK, CREATINE KINASE (CPK, TOTAL) Routine 03/09/2009 Pure Hypercholesterolemia documented in this encounter Results * Due to [place] state law, this organization might not be sharing negative HIV tests. * TSH (THYROTROPIN) (03/09/2009) TSH, THYROTROPIN 1.19 0.40 - 4.50 UIU/ML [facility] 03/09/2009 03/09/2009 9:5 4 PM EDT us Rush Watts MD LABORATORY Final Result Performing Organization Address City/[facility] Co de Phone Number [facility] [address] [place] [address] * CK, CREATINE KINASE (CPK, TOTAL) (03/09/2009) CK (CREATINE KINASE) 36 29 - 143 U/L [facility] 03/09/2009 03/09/2009 9:5 4 PM EDT us Rush Watts MD LAB SAME DAY RESULT Final Resul t Performing Organization Address City/[facility]/ZIP Co de Phone Number [facility] [address] [place] [address] * (ABNORMAL) CBC 5 PART DIFF (03/09/2009) Pathologist [facility] WHITE BLOOD COUNT 5.5 3.8 - 10.8 THOUS/UL [facility] RBC 4.24 3.80 - 5.10 MIL/UL [facility] Hemoglobin 13.6 11.7 - 15.5 G/DL [facility] HCT (HEMATOCRIT) 39.5 35.0 - 45.0 % [facility] MCV 93.2 80.0 - 100.0 FL [facility] MCH 32.0 27.0 - 33.0 PG [facility] MCHC 34.4 32.0 - 36.0 G/DL [facility] BAND % 0 0 - 5 % [facility] NEUTROPHIL % 59 48 - 75 % [facility] LYMPHOCYTE % 28 17 - 40 % [facility] MONOCYTE % 9 0 - 14 % [facility] EOSINOPHIL % 4 0 - 5 % [facility] BASOPHIL % 0 0 - 3 % [facility] ATYPICAL LYMPHOCYTE % 0 0 - 5 % [facility] PLATELETS 138(L) 140 - 400 THOUS/UL [facility] BANDS # 0 0 - 750 CELLS/MCL [facility] NEUTROPHILS # 3245 1500 - 7800 CELLS/MCL [facility] LYMPHOCYTES # 1540 850 - 3900 CELLS/MCL [facility] MONOCYTES # 495 200 - 950 CELLS/MCL [facility] EOSINOPHILS # 220 15 - 550 CELLS/MCL [facility] BASOPHILS # 0 0 - 200 CELLS/MCL [facility] ATYPICAL LYMPHOCYTES # 0 0 - 200 CELLS/MCL [facility] RDW 13.4 11.0 - 15.0 % [facility] MPV 9.3 7.5 - 11.5 FL [facility] 03/09/2009 03/09/2009 9:5 4 PM EDT us Rush Watts MD LAB SAME DAY RESULT Final Resul t [facility] [address] [place] [address] * CARDIAC RISK/LIPID PROFILE I (03/09/2009) Pathologist [facility] CHOLESTEROL, TOTAL 154 125 - 200 MG/DL [facility] TRIGLYCERIDES 110 30 - 149 MG/DL [facility] HDL-CHOLESTEROL 55 40 - 77 MG/DL [facility] LDL-CHOLESTEROL 77 62 - 130 MG/DL [facility] Comment: RISK CATEGORY: ??LDL-CHOLESTEROL GOAL CHD AND CHD RISK EQUIVALENTS: ??<100 MULTIPLE (2+) FACTORS: ??<130 ZERO TO ONE RISK FACTOR: ??<160 CHD RELATIVE RISK RATIO (TOTAL/HDL) 2.80 0.0 - 5.0 [facility] Comment:(< .25 X AVERAGE) 03/09/2009 03/09/2009 9:5 4 PM EDT us Rush Watts MD LABORATORY Final Result Performing Organization Address [facility] Co de Phone Number [facility] [address] [place] [address] * (ABNORMAL) BASIC METABOLIC PANEL (03/09/2009) CALCIUM 9.6 8.6 - 10.2 MG/DL [facility] BUN 24 7 - 25 MG/DL [facility] CREATININE 1.04 0.63 - 1.22 MG/DL [facility] Glucose 109(H) 65 - 99 MG/DL [facility] SODIUM 141 135 - 146 MMOL/L [facility] POTASSIUM 4.9 3.5 - 5.3 MMOL/L [facility] CHLORIDE 106 98 - 110 MMOL/L [facility] CARBON DIOXIDE 23 21 - 33 MMOL/L [facility] 03/09/2009 03/09/2009 9:5 4 PM EDT us Rush Watts MD LAB SAME DAY RESULT Final Resul t Performing Organization Address [facility] de Phone Number [facility] [address] [place] [address] * ASPARTATE AMINOTRANSFERASE (AST), SERUM (03/09/2009) AST (SGOT) 17 10 - 35 U/L [facility] 03/09/2009 03/09/2009 9:5 4 PM EDT us Rush Watts MD LAB SAME DAY RESULT Final Resul t Performing Organization Address [facility] Co de Phone Number [facility] [address] [place] [address] * ALANINE AMINOTRANSFERASE (ALT), SERUM (03/09/2009) ALT (SGPT) 21 6 - 40 U/L [facility] 03/09/2009 03/09/2009 9:5 4 PM EDT Rush Watts MD LAB SAME DAY RESULT Final Resul t Performing Organization Address City/[facility]/ZIP Co de Phone Number [facility] [address] [place] [address] * (ABNORMAL) HEMOGLOBIN A1C (03/09/2009) Hemoglobin A1C 6.1(H) 0.0 - 5.9 % [facility] GLUCOSE MEAN VALUE 140 MG/DL [facility] 03/09/2009 03/09/2009 9:5 4 PM EDT Rush Watts MD LABORATORY Final Result Performing Organization Address City/[facility] Co de Phone Number [facility] [address] [place] [address] * MICROALBUMIN (RANDOM URINE) (03/09/2009) CREATININE (URINE) 112 20 - 320 MG/DL [facility] Microalbumin (Urine) < 5 NOT ESTABLISHED [facility] MICROALBUMIN/CR EAT RATIO (URINE) SEE TEXT 0 - 29 [facility] Comment: UNITS: MCG/MG CREATININE MICROALBUMIN <5, CANNOT CALCULATE RATIO 03/09/2009 03/09/2009 9:5 4 PM EDT Rush Watts MD LABORATORY Final Result Performing Organization Address City/[facility] Co de Phone Number [facility] [address] [place] [address] documented in this encounter Visit Diagnoses Diagnosis Type II or unspecified type diabetes mellitus without mention of complication, not stated as uncontrolled Pure hypercholesterolemia Essential hypertension, benign Hypothyroidism Unspecified hypothyroidism documented in this encounter Care Teams Gas Fitter Apprentice Relationship Specialty Start Date End Date Rush Watts MD [facility] [address] [place] [phone] PCP - General 10/12/05 documented as of this encounter
--- OUTSIDE RECORDS SUMMARY | 2024-10-06 15:13 | XMS_ITS ---
Author Organization [facility] Address [address] [place] [address] Care Team Providers Care Manager Bench Name Role Phone MateoLuzma Primary Care Provider Unavailabl e Black, Gabriella Unavailable [phone] Allergies Allergen (clinical drug ingredient) Drug/Non Drug Allergy documented on EMR Reaction Allergy Type Onset Date Status lisinopril Lisinopril Unknown Drug Allergy Activ e REASON FOR VISIT At Risk Footcare, Foot pain, Toe Irritation Medications Medication SIG (Take, Route, Frequency, Duration) Notes Start Date End Date Status metFORMIN HCl 500 MG 1000 MG (2 [...] 1 % as directed Externally 01/15/2024 Active Extra Depth Orthopedic Shoes (1 Pair) with Customized Heat Molded Multidensity Innersoles (3 Pair) as directed Dx: NIDDM/Polyneuropathy (E11.42), Hammertoe Foot Deformity (M20.41,M20.42), Preulcerative Skin Lesion(s) (L85.1 08/05/2024 Active Losartan Potassium 100 MG TAKE 1 TABLET BY MOUTH EVERY DAY Oral for 90 Days Active Insulin Glargine 11/14/2023 Ac tive Levothyroxine Sodium 88 MCG TAKE 1 TABLE T BY MOUTH EVERY DAY IN THE MORNING Oral for 90 Days Active Fluticasone Propionate Active Gabapentin 100 MG TAKE 1 CAPSULE BY MO UTH THREE TIMES A DAY Oral for 90 Days Active Cholecalciferol Acti ve Cyclobenzaprine HCl 5 MG TAKE 1 TABLET O RALLY 3 TIMES A DAY NEEDED FOR MUSCLE SPASM FOR 30 DAYS Oral for 10 Days PRN Active Biotin Active Cyanocobalamin Activ e Fexofenadine HCl Act katrin Multivitamin Active Amoxicillin 500 MG TAKE 4 CAPSULES BY M OUTH AT ONE TIME 1 HOUR BEFORE PROCEDURE Oral for 2 Days Active Vitamin A Active Greenfield 3 Active Aspirin Active Vitamin E Active Vitamin C Active Zinc Active PreserVision AREDS A ctive Copper Active One Touch Delica Lancets Active Social History Tobacco Use: Social History Observation Description Date Details (start date - stop date) Never Smoker NA - NA Tobacco use other than smoking: Question Answer Notes Are you an other tobacco user? No Tobacco Control (Standard) Question Answer Notes Tobacco use: Nonsmoker Problems Problem Type SNOMED Code ICD Code Onset Dates Problem Status W/U Status Risk Notes Problem Acquired hammer toe of right foot (6961006309863 105) Other hammer toe(s) (acquired), right foot (M20.41) Active confirmed Problem Acquired hammer toe of left foot (7850578994566 103) Other hammer toe(s) (acquired), left foot (M20.42) Active confirmed Vital Signs Blood pressure systolic 138 mm Hg 08/05/19 25 Blood pressure diastolic 68 mm Hg 025 Height 5 ft 5in in 08/05/2024 Weight 248 lbs 08/05/2024 BMI 41.26 kg/m2 08/05/2024 Procedures Procedure Date Ordered Date Performed Result Body Sit e 71865-UYCW SKIN LESIONS, 2 TO 4 08/05/2024 N/A W8918-MYSRDOAG DYSTROPHIC NAILS ANY # 08/05/2024 N/A Encounters Encounter Location Date Provider Diagnosis [facility] [address] [place] [address] 08/05/2024 Gabriella Black Type 2 diabetes mellitus with [...] Other hammer toe(s) (acquired), left foot M20.42 Assessments Encounter Date Diagnosis (ICD Code) Assessment Notes Treatment Notes Treatment Clinical Notes Section Notes 08/05/2024 Type 2 diabetes mellitus with diabetic polyneuropathy (ICD-10 - E11.42) 08/05/2024 Other hammer toe(s) (acquired), right foot (ICD-10 - M20.41) Patient Educated with: DIABETIC FOOT CARE INSTRUCTIONS. pdf (DIABETIC FOOT CARE INSTRUCTIONS. 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) 08/05/2024 Pain in right foot (ICD-10 - M79.671) 08/05/2024 Pain in right ankle and joints of right foot (ICD-10 - M25.571) 08/05/2024 Bursitis of right foot (ICD-10 - M77.51) 08/05/2024 Osteoarthritis of midtarsal joint of right foot (ICD-10 - M19.071) 08/05/2024 Arthritis (ICD-10 - M19.90) 08/05/2024 Metatarsalgia, left foot (ICD-10 - M77.42) 08/05/2024 Metatarsalgia, right foot (ICD-10 - M77.41) 08/05/2024 Other hammer toe(s) (acquired), left foot (ICD-10 - M20.42) Plan Of Treatment Medication Medication Name Sig Start Date Stop Date Notes Extra Depth Orthopedic Shoes (1 Pair) with Customized Heat Molded Multidensity Innersoles (3 Pair) as directed Dx: NIDDM/Polyneuropathy (E11.42), Hammertoe Foot Deformity (M20.41,M20.42), Preulcerative Skin Lesion(s) (L85.1 08/05/2024 Treatment Notes Assessment Notes Other hammer toe(s) (acquired), right fo ot Patient Educated with: DIABETIC FOOT CARE INSTRUCTIONS.pdf (DIABETIC FOOT CARE INSTRUCTIONS.pdf) Pending Test Test Name Order Date 69330-IPYF SKIN LESIONS, 2 TO 4 08/05/19 25 P8305-NGDPQVEI DYSTROPHIC NAILS ANY # Next Appt Details Follow Up: prn, Reason: Provider Name:Gabriella Delvalle , 11/11/2024 02:15:00 PM, [address] [place] [address], [phone], Procedure Notes * Category Sub-Category Detail Notes Keratoma Treatment Parring or Cutting o f Benign Hyperkeratotic Lesion(s) (-56) 2-4 Lesions - Due to the at risk nature of the patients medical condition as documented in the exam findings, performance of this keratoderma treatment is medically necessary as its management by an unskilled/untrained nonprofessional would put this patients foot and overall health at risk. Therefore, the benign hyperkeratotic lesions, ( 2 ) in total, locations as stated and described in the exam ( IPJ , TA , T5 , Medial plantar ), were pared, and/or cut utilizing a sterile 15 blade, tissue nippers, and/or power dremel instrumentation by the physician of record - [id number] Nail Reduction Nail Reduction Trimming of dyst rophic nails performed to reduce/remove overall nail length and girth, by manual and electrical means with use of a nail nipper and/or dremel, to more viable healthy nail plate or bed tissue 6-10 (G0127),T1, T2, T3, T4, T6, T7, T8, T9 Progress Notes * Vanessa NOVAK PDOB: [birth year] (89 yo F)Acc No.[id number]:08/05/2024 Progress Note Patient:?Vanessa NOVAK P Provider:?Gabriella Delvalle DPM :1935???Age:89 Y???Sex:Female D ate:08/05/2024 Address:[address] [place] [address] [address], [address], [place], [id number] Pcp:Luzma Galindo Subjective: * Chief Complaints: * ???At Risk FootcareFoot pain Toe Irritation * HPI: ???At Risk footcare:?Pt States Last PCP Visit:?Date?05/06/2024 ???Foot Pain:?Nature:?aching , stiffness , swelling , throbbing.?Location:?Outside, , Midfoot, B/L , Left > Right.?Duration:?, several months.?Course:?, improved, at 80 %.?Treatments:?rest/alter normal daily activity, cortisone injection (1).?Toe pain:?Location:?B/L feet.?Duration:?several years.?Course:?worse.?Aggravated by:?shoes, any pressure.?Treatments:?change in shoes.? * ROS:?General/Constitutional:?Nausea?denies.?Vomiting?denies.?Hunger Thirst?denies.?Loss appetite?denies.?Chills?denies.?Fatigue?admits.?Fever?denies.?Night Sweats?denies.?Unexplained weight loss?denies.?Unexplained weight gain?denies.?HEENTM:?Dentures?denies.?Dizziness?denies.?Glasses/contacts?admits.?Retinopathy?den ies.?Blurred/double vision?admits.?TMJ?denies.?Discharge/drainage?denies.?Implants?denies.?Sore throat?denies.?Dental implants?admits.?Hard of hearing ?denies.?Difficulty chewing/swallowing/speaking?denies.?Nose bleeds?denies.?Sore mouth?denies.?Respiratory:?On O xygen?denies.?Pneumonia/pleurisy?denies.?Bronchitis?denies.?Emphysema?denies.?Co ughing?denies.?Cough blood?denies.?Shortness of breath?admits.?Wheezing?denies.?Cardiovascular:?Pacemaker?denies.?MVP?denies.?WPW?denies.?CHF?denies.?Heart attack?denies.?Septal defect?denies.?Rapid beat?denies.?Chest pain ?denies.?Atrial Fib.?denies.?Murmur/Palpitations?denies.?Gastrointestinal:?Hemorrhoids?denies.?Stomach/Abdominal pain?denies.?Dark blood stool?denies.?Irritable bowel ?denies.?Constipation?denies.?Diarrhea?denies.?Hematology:?Swelling?denies.?Clots?denies.?Varicose Veins?denies.?Bruising?denies.?Bleeding problem?denies.?Genitourinary:?Blood urine?denies.?Frequent/Painfu/urination/bladder control?admits.?Kidney stones?denies.?Infection (UTI)?admits.?Nephropathy?denies.?sex trans dis (STD)?denies.?Prostate?denies.?Musculoskeletal:?Hammertoes?denies.?Bunions?denies.?Back Pain?denies.?Muscle Cramps/ Resting?denies.?Muscle cramps / walking?denies.?Generalized aches and pains?admits.?Weakness?denies.?Integ.:?Jaramillo?denies.?Scars?denies.?Corns/calluses?denies.?Ingrown nails?denies.?Painful nails?denies.?Open Sores?denies.?Rashes?denies.?Neurologic:?Difficulty sleeping?denies.?Brain disorder?denies.?Numbness?admits.?Balance t rouble?denies.?Confusion?denies.?Fainting/blackouts?denies.?Tingling?denies.?Balta mors?denies.? * Medical History:? * Surgical History:?appendecto my 06/1962hysterectomy 1971Gall bladder removal 2009knee surgery, right 04/09/2010knee surgery, left 07/2010cataract surgery, left 02/10/2017cataract surgery, right 03/03/2017 * Hospitalization/Major Diagno stic Procedure:?Denies Past Hospitalization * Family History:?Mother: dece ased, diagnosed with Other malignant neoplasm of unspecified site, Diabetic - NIDDM.?Father: , diagnosed with Unspecified heart disease.?Siblings: foot problems, stroke, diagnosed with Other malignant neoplasm of unspecified site, Diabetic - NIDDM, Unspecified essential hypertension.? * Social History:?Tobacco Use:?Tobacco use other than smoking?Are you an other tobacco user??No ?Tobacco Control (Standard)?Tobacco use:?Nonsmoker * Medications:?TakingOne Touch Delica Lancets PreserVision AREDS Copper Zinc Vitamin E Vitamin C Vitamin A Greenfield 3 Multivitamin Amoxicillin 500 MG Capsule TAKE 4 CAPSULES BY MOUTH AT ONE TIME 1 HOUR BEFORE PROCEDURE Oral Aspirin Biotin Cholecalciferol Cyclobenzaprine HCl 5 MG Tablet TAKE 1 TABLET ORALLY 3 TIMES A DAY NEEDED FOR MUSCLE SPASM FOR 30 DAYS Oral , Notes to Pharmacist: PRNCyanocobalamin Fexofenadine HCl Fluticasone Propionate Gabapentin 100 [...] Taking Vitamin C Taking Vitamin A Taking Greenfield 3 Taking Multivitamin Taking Amoxicillin 500 MG Capsule TAKE 4 CAPSULES BY MOUTH AT ONE TIME 1 HOUR BEFORE PROCEDURE Oral Taking Aspirin Taking Biotin Taking Cholecalciferol Taking Cyclobenzaprine HCl 5 MG Tablet TAKE 1 TABLET ORALLY 3 TIMES A DAY NEEDED FOR MUSCLE SPASM FOR 30 DAYS Oral , Notes to Pharmacist: PRNTaking Cyanocobalamin Taking Fexofenadine HCl Taking Fluticasone [...] * Vitals:?Ht: 5 ft 5in, Wt: 24 8, BMI: 41.26, Shoe size: 10.5W, BP: 138/68 mm Hg, BS: 124, Ht-cm: 165.1 cm, Wt-k.49 kg. * ???Past Orders: ???Lab:HEMOGLOBIN A1C (GLYCO HEMOGLOBIN) (Order Date - 04/20/2024) (Collection Date & Time - 04/20/2024 09:10 AM) ? Value Reference Range ?HEMOGLOBIN A1C % (HH) 7.1 * Examination: ???Ophthalmology Referral: ?DIABETES EYE EXAM?Procedure Performed:?Yes ?Date of Exam Performed?04/20/2024 ?Findings of Diabetic Eye Exam:?no retinopathy?General Examination: ?GENERAL APPEARANCE:?Reveals a pleasant, alert, well nourished, well- developed, well hydrated individual, who demonstrates proper attention to hygiene/body habitus, and is in no acute distress, Pt serves as own historian for office visit today.?ORIENTED:?person, place, and time.?FOOT EXAM:?Lower Extremity Neurological Exam performed:?Yes Date ?Visual exam of foot performed:?Yes ?Date?08/05/2024 ?Sensory testing performed:?sensations diminished ?Sensory and motor testing performed:?sensations diminished ?Pedal pulse taking performed:?2+ ?Footwear Evaluation?Footwear Evaluation performed:?Yes?Neurological: ?SENSORY:?Neurological exam demonstrates reduced sharp/dull pin prick discrimination reduced light touch sensation reduced vibration sensation reduced proprioception sensation in a stocking fashion 5.07 monofilament test performed at plantar aspects of 5 varied sites per foot shows sensation plantar aspects absent at Forefoot B/L.?Nails: ?NAILS are:?Elongated, overgrown, dystrophic, ?T1, T2, T3, T4,? T6, T7, T8, T9.?Dermatologic: ?SKIN FINDINGS:?Skin exam reveals Keratotic lesion(s) located at , IPJ , TA , T5 , Medial plantar.?Vascular: ?DP PULSES (B):?2/4, B/L.?PT PULSES (B):?/4, B/L.?Orthopedic: ?MUSCLE STRENGTH:?5/5 all groups in a symmetrical fashion, B/L.?GAIT ABNORMALITY:?Pronated , abducted angle and base of gate , B/L.?FOOT MORPHOLOGY:? Prominent, painful 1st Met-Cuneiform joint with inflammation, B/L.?DIGITAL DEFORMITIES:?Digital contracture, PIPJ, 2-5 B/L, incompl-reducible with WB, or to push-up test, no over, nor underlapping , Digital contracture, PIPJ, 2-5 B/L, incompl-reducible to push-up test, no over, nor underlapping,?there is?evidence of shoe producing skin irritation.?MPJ PATHOLOGY:?Pain on Metatarsal Palpation 5th b/l , POP lateral midfoot cuboid area left foot, Approximately 80 percent LESS.?FOOTWEAR:?worn, non-supportive, shoe gear properties exacerbate patient's foot/toe deformity.? 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 14.?Metatarsalgia, right foot - M77.41???15.?Other hammer toe(s) (acquired), left foot - M20.42???Specify :Chronic problem, Worse (4),Rx Management (4)??? Plan: * Treatment: 2.?Type 2 diabetes mellitus with diabetic polyneuropathy?Procedure: 88424-DVIR SKIN LESIONS, 2 TO 4 ?Procedure: Q8452-BRCAAJYL DYSTROPHIC NAILS ANY # * Procedures:?Keratoma Treatment:?Parring or Cutting of Benign Hyperkeratotic Lesion(s)?(-56) 2-4 Lesions - Due to the at risk nature of the patients medical condition as documented in the exam findings, performance of this keratoderma treatment is medically necessary as its management by an unskilled/untrained nonprofessional would put this patients foot and overall health at risk. Therefore, the benign hyperkeratotic lesions, ( 2 ) in total, locations as stated and described in the exam ( IPJ , TA , T5 , Medial plantar ), were pared, and/or cut utilizing a sterile 15 blade, tissue nippers, and/or power dremel instrumentation by the physician of record - [id number].?Nail Reduction:?Nail Reduction?Trimming of dystrophic nails performed to reduce/remove overall nail length and girth, by manual and electrical means with use of a nail nipper and/or dremel, to more viable healthy nail plate or bed tissue 6-10 (G0127),T1, T2, T3, T4, T6, T7, T8, T9.? * Procedure Codes:?07037 TRIM SKIN LESIONS, 2 TO 4, Modifiers: XS G0127 TRIMMING DYSTROPHIC NAILS ANY #, Modifiers: XS * Preventive Medicine:? ??Counseling:?Discussion:?-14: Office [...] have encouraged the patient to call the office.?Digital Treatment:?HV - I explained to the patient the risks/benefits of all the different treatment options for their pain including: No treatment at all, Rest, Ice, New/supportive/wider/deeper Shoe gear, Digital Padding/Strapping/Taping/Bracing/Gel protective sleeves, Foot/Ankle AFO Bracing, Stretching exercises, Deep Tissue Massage, Arch support/shoe inserts with splay metatarsal padding, and Custom orthoses. I insisted that any digital devices be removed daily and not worn overnight for safety. The patient is to carefully examine the toes daily for any skin irritation while using any splinting or padding device. The advantages and disadvantages of each option were discussed and the patients questions re: shoe gear, padding, custom vs prefabricated inserts, activity level, and consistency in home treatment regimens for optimal success were answered to their verbally confirmed satisfaction, Recomm, rest, ice, proper shoegear, padding, orthotics, anti-inflammatories or tylenol as tolerated, topical analgesics, cortisone injections.?F/u Visit:?The Pt. was counseled on the remaining treatment options and importance of adherence to recomm; the Pt wishes to continue present protochol longer.?Metatarsalgea:?Discussed other tx options for the patients condition, given recent successful results to treatment, the patient wishes to continue with the present plan for their condition.?Shoe Gear Counseling:?SHOE Rx - The patient was counseled in great detail on their muscoloskeletal foot and toe deformities which coincided with the dermatological presentations visualized on exam. We discussed how their deformities put the integrity of their feet at risk for potential pedal complications which makes the accomidative diabetic shoes and cutomizable inserts medically necessary. We discussed the different shoe and insert treatment types and options, as well as the important advantages for adhering to regularly wearing these accomidative devices daily. The patient was made aware of the fact that a failure to abide by these recommedations may be deleterious to their foot health as they are able to prevent many pedal complications such as skin irritation, skin ulceration, infection, and even loss of toe/foot/leg/or life. Time was also spent with the patient dispensing and discussing proper diabetic footcare techniques including daily skin moisturization, daily foot inspection for any interruption in skin integrity including open lesions, or sign of infection such as redness/malodor/drainage/swelling. Also discussed and recommended were procedures regarding daily shoe inspection for the presence of internal foreign bodies as well as any visualized irregular shoe or insert wear. Patient questions re: shoes, inserts, and self foot inspections were answered to their satisfaction as the patient verbally confirmed a full understanding of the above information. A Rx for Extra Depth Orthopedic Shoes with 3 pair of custom heat-molded inserts was dispensed.? ??Screening/Special Tests:?Fall Risk?Screening:?No falls in the past year ?FALLS: Screening for Future Fall Risk?Have you had any falls with injury in the past year??No * Follow Up:?prn * Images: * Sign off status: Completed true * Provider:?Gabriella Delvalle DPM Date:?2024 Generated for Car palomares/Miller/Mikey on:?10/06/2024 03:13 PM EDT History and Physical Notes * HPI (History of Present Illness) Category Sub-Category Detail Notes Category Not es Toe pain Location: B/L feet Duration: several years Course: worse Aggravated by: shoes, any pressure Treatments: change in shoes At Risk footcare Pt States Last PCP Visit: Date: 4 Foot Pain Nature: aching , stiffne ss , swelling , throbbing Location: Outside, , Midfoot, B/L , Left > Right Duration: , several months Course: , improved, at 80 % Treatments: rest/alter normal da jacqueline activity, cortisone injection (1) Examination Category Sub-Category Detail Notes Category Not [...] 1 st Met-Cuneiform joint with inflammation, B/L FOOTWEAR: worn, non-supportive , shoe gear properties exacerbate patient's foot/toe deformity DIGITAL DEFORMITIES: Digital contracture , PIPJ, 2-5 B/L, incompl-reducible with WB, or to push-up test, no over, nor underlapping , Digital contracture, PIPJ, 2-5 B/L, incompl-reducible to push-up test, no over, nor underlapping, there is evidence of shoe producing skin irritation MPJ PATHOLOGY: Pain on Metatarsal P alpation 5th b/l , POP lateral midfoot cuboid area left foot, Approximately 80 percent LESS MUSCLE STRENGTH: 5/5 all groups in a symmetrical fashion, B/L General Examination GENERAL APPEARANCE: Reveals a pleasant, alert, well nourished, well-developed, well hydrated individual, who demonstrates proper attention to hygiene/body habitus, and is in no acute distress, Pt serves as own historian for office visit today FOOT EXAM: Lower Extremity Neurological Exa m performed:: Yes Date Visual exam of foot performed:: Yes Date: 08/05/2024 Sensory testing performed:: sensations d iminished Sensory and motor testing performed:: se nsations diminished Pedal pulse taking performed:: 2+ ORIENTED: person, place, and t geoff Footwear Evaluation Footwear Evaluation performe d:: Yes Ophthalmology Referral DIABETES EYE EXAM Procedure Perform ed:: Yes ?Date of Exam Performed: 04/20/2024 Findings of Diabetic Eye Exam:: no retin opathy Vascular DP PULSES (B): 2/4, B/L PT PULSES (B): 1/4, B/L Nails NAILS are: Elongated, overg rown, dystrophic, T1, T2, T3, T4, T6, T7, T8, T9
--- OUTSIDE RECORDS SUMMARY | 2024-10-06 15:13 | XMS_ITS | Encounter Summary ---
Author Organization [facility] Address [address] [place] [address] Care Team Providers Care Car Dumper Operator Helper Name Role Phone Rush Watts MD Primary Care Provider [phone] Encounter Details Date Type Department Care Team (Late st Contact Info) Description 03/16/2009 Orders Only [facility] [address] [place] [phone] Rush Watts MD [facility] [address] [place] [phone] Social History Tobacco Use Types Packs/Day Years [...] on file documented as of this encounter Visit Diagnoses Diagnosis Pure hypercholesterolemia- Primary documented in this encounter Care Teams Car Dumper Operator Helper Relationship Specialty Start Date End Date Rush Watts MD [facility] [address] [place] [phone] PCP - General 10/12/05 documented as of this encounter
--- OUTSIDE RECORDS SUMMARY | 2024-10-06 15:13 | XMS_ITS | Encounter Summary ---
Author Organization [facility] Address [address] [place] [address] Care Team Providers Care Miller First Name Role Phone Rush Watts MD Primary Care Provider [phone] Encounter Details Date Type Department Care Team (Late st Contact Info) Description 03/09/2008 Orders Only [facility] [address] [place] [phone] Rush Watts MD [facility] [address] [place] [address] Social History Tobacco Use Types Packs/Day Years [...] of this encounter Procedures * Due to [place] state law, this organization might not be sharing negative HIV tests. Procedure Name Priority Date/Time Associated Diagnosis Comments HEMOGLOBIN A1C Routine 03/09/2008 DM w/o Complication Type II CARDIAC RISK/LIPID PROFILE I Routine 03/09/2008 Pure Hypercholesterolemia BASIC METABOLIC PANEL Routine 03/09/2008 Essential Hypertension, Benign MICROALBUMIN (RANDOM URINE) Routine 03/09/2008 DM w/o Complication Type II CBC 5 PART DIFF Routine 03/09/2008 DM w/o Complication Type II ALANINE AMINOTRANSFERASE (ALT), SERUM Routine 03/09/2008 Pure Hypercholesterolemia ASPARTATE AMINOTRANSFERASE (AST), SERUM Routine 03/09/2008 Pure Hypercholesterolemia TSH, THYROTROPIN Routine 03/09/2008 Hypothyroidism CK, CREATINE KINASE (CPK, TOTAL) Routine 03/09/2008 Pure Hypercholesterolemia documented in this encounter Results * Due to [place] state law, this organization might not be sharing negative HIV tests. * TSH (THYROTROPIN) (03/09/2008) TSH, THYROTROPIN 1.67 0.40 - 4.50 UIU/ML 03/09/2008 03/09/2008 6:0 4 PM EDT us Rush Watts MD LABORATORY Final Result * CK, CREATINE KINASE (CPK, TOTAL) (03/09/2008) CK (CREATINE KINASE) 45 0 - 165 U/L 03/09/2008 03/09/2008 6:0 4 PM EDT us Rush Watts MD LAB SAME DAY RESULT Final Resul t * MICROALBUMIN (RANDOM URINE) (03/09/2008) CREATININE (URINE) 63 20 - 320 MG/DL Microalbumin (Urine) < 5 0 - 29 UG/ML MICROALBUMIN/CREA T RATIO (URINE) SEE TEXT 0 - 29 Comment: UNITS: UG/MG CREATININE MICROALBUMIN <5, CANNOT CALCULATE RATIO 03/09/2008 03/09/2008 6:0 4 PM EDT us Rush Watts MD LABORATORY Final Result * (ABNORMAL) HEMOGLOBIN A1C (03/09/2008) Pathologist [facility] Hemoglobin A1C 6.1(H) 0.0 - 5.9 % GLUCOSE MEAN VALUE 140 MG/DL 03/09/2008 03/09/2008 6:0 4 PM EDT us Rush Watts MD LABORATORY Final Result * (ABNORMAL) CBC 5 PART DIFF (03/09/2008) [facility] WHITE BLOOD COUNT 5.9 3.8 - 10.8 THOUS/UL RBC 4.57 3.80 - 5.10 MIL/UL Hemoglobin 13.7 11.7 - 15.5 G/DL HCT (HEMATOCRIT) 41.0 35.0 - 45.0 % MCV 89.7 80.0 - 100.0 FL MCH 30.1 27.0 - 33.0 PG MCHC 33.5 32.0 - 36.0 G/DL BAND % 0 0 - 5 % NEUTROPHIL % 59 48 - 75 % LYMPHOCYTE % 26 17 - 40 % MONOCYTE % 8 0 - 14 % EOSINOPHIL % 6(H) 0 - 5 % BASOPHIL % 1 0 - 3 % ATYPICAL LYMPHOCYTE % 0 0 - 5 % PLATELETS 175 140 - 400 THOUS/UL BANDS # 0 0 - 750 CELLS/MCL NEUTROPHILS # 3481 1500 - 7800 CELLS/MCL LYMPHOCYTES # 1534 850 - 3900 CELLS/MCL MONOCYTES # 472 200 - 950 CELLS/MCL EOSINOPHILS # 354 15 - 550 CELLS/MCL BASOPHILS # 59 0 - 200 CELLS/MCL ATYPICAL LYMPHOCYTES # 0 0 - 200 CELLS/MCL RDW 14.9 11.0 - 15.0 % MPV 10.4 7.5 - 11.5 FL 03/09/2008 03/09/2008 6:0 4 PM EDT us Rush Watts MD LAB SAME DAY RESULT Final Resul t * BASIC METABOLIC PANEL (03/09/2008) Pathologist [facility] CALCIUM 10.1 8.6 - 10.2 MG/DL BUN 22 7 - 25 MG/DL CREATININE 0.91 0.50 - 1.20 MG/DL Glucose 92 65 - 99 MG/DL SODIUM 143 135 - 146 MMOL/L POTASSIUM 4.9 3.5 - 5.3 MMOL/L CHLORIDE 105 98 - 110 MMOL/L CARBON DIOXIDE 21 21 - 33 MMOL/L 03/09/2008 03/09/2008 6:0 4 PM EDT Result Rehan Watts MD LAB SAME DAY RESULT Final Resul t * (ABNORMAL) CARDIAC RISK/LIPID PROFILE I (03/09/2008) CHOLESTEROL, TOTAL 162 125 - 200 MG/DL TRIGLYCERIDES 171(H) 30 - 149 MG/DL HDL-CHOLESTEROL 50 40 - 77 MG/DL LDL-CHOLESTEROL 78 62 - 130 MG/DL Comment: RISK CATEGORY: ??LDL-CHOLESTEROL GOAL CHD AND CHD RISK EQUIVALENTS: ??<100 MULTIPLE (2+) FACTORS: ??<130 ZERO TO ONE RISK FACTOR: ??<160 CHD RELATIVE RISK RATIO (TOTAL/HDL) 3.24 0.0 - 5.0 Comment:(0.4 X AVERAGE) 03/09/2008 03/09/2008 6:0 4 PM EDT Result Rehan Watts MD LABORATORY Final Result * ASPARTATE AMINOTRANSFERASE (AST), SERUM (03/09/2008) AST (SGOT) 22 10 - 35 U/L 03/09/2008 03/09/2008 6:0 4 PM EDT Result Rehan Watts MD LAB SAME DAY RESULT Final Resul t * ALANINE AMINOTRANSFERASE (ALT), SERUM (03/09/2008) ALT (SGPT) 20 6 - 40 U/L 03/09/2008 03/09/2008 6:0 4 PM EDT Result Rehan Watts MD LAB SAME DAY RESULT Final Resul t documented in this encounter Visit Diagnoses Diagnosis Pure hypercholesterolemia Essential hypertension, benign Type II or unspecified type diabetes mellitus without mention of complication, not stated as uncontrolled Hypothyroidism Unspecified hypothyroidism documented in this encounter Care Teams Miller First Relationship Specialty Start Date End Date Rush Watts MD [facility] [address] [place] [phone] PCP - General 10/12/05 documented as of this encounter
--- OUTSIDE RECORDS SUMMARY | 2024-10-06 15:13 | XMS_ITS | Encounter Summary ---
Author Organization [facility] Address [address] [place] [address] Care Team Providers Care Retail Performance Coach Name Role Phone Rush Watts MD Primary Care Provider [phone] Encounter Details Date Type Department Care Team (Late st Contact Info) Description 07/19/2009 Orders Only [facility] Pre-Admission Testing [address] [facility] [address] [place] [address] Shayla Zurita MD [address] [place] [address] Medications Social History Tobacco Use Types Packs/Day Years [...] documented as of this encounter Visit Diagnoses Not on filedocumented in this encounter Care Teams Retail Performance Coach Relationship Specialty Start Date End Date Rush Watts MD [facility] [address] [place] [phone] PCP - General 10/12/05 documented as of this encounter
--- OUTSIDE RECORDS SUMMARY | 2024-10-06 15:13 | XMS_ITS | Encounter Summary ---
Author Organization [facility] Address [address] [place] [address] Care Team Providers Care Vp Strategic Planning Name Role Phone Rush Watts MD Primary Care Provider [phone] Encounter Details Date Type Department Care Team (Late st Contact Info) Description 03/15/2008 Orders Only [facility] [address] [place] [phone] Rush Watts MD [facility] [address] [place] [address] Social History Tobacco Use Types Packs/Day Years [...] this encounter Procedures * Due to [place] [employer] law, this organization might not be sharing negative HIV tests. Procedure Name Priority Date/Time Associated Diagnosis Comments OCCULT BLOOD (STOOL GUAIAC) 3 SAMPLES Routine 03/15/2008 Special Screening for Malignant Neoplasms, Colon documented in this encounter Results * Due to [place] [employer] law, this organization might not be sharing negative HIV tests. * OCCULT BLOOD (STOOL GUAIAC) 3 SAMPLES (03/15/2008) OCCULT BLOOD GUAIAC (STOOL) SEE TEXT Comment: SOURCE: STOOL NOT DETECTED OCCULT BLOOD GUAIAC (STOOL) SEE TEXT Comment: SOURCE: STOOL NOT DETECTED OCCULT BLOOD GUAIAC (STOOL) SEE TEXT Comment: SOURCE: STOOL NOT DETECTED 03/15/2008 03/15/2008 5:3 3 PM EDT Rush Watts MD LABORATORY Final Result documented in this encounter Visit Diagnoses Diagnosis Special screening for malignant neoplasms, colon- Primary documented in this encounter Care Teams Vp Strategic Planning Relationship Specialty Start Date End Date Rush Watts MD [facility] [address] [place] [phone] PCP - General 10/12/05 documented as of this encounter
== END 2024-10-06 13:45 | disposition home or self-care (01) ==
LOC: HO.HMCH 12:51
PROVIDERS: PCP Internal Medicine; Visit Provider Internal Medicine
DX: E11.65 Type 2 diabetes mellitus with hyperglycemia (principal); Z79.4 Long term (current) use of insulin; E66.01 Morbid (severe) obesity due to excess calories; Z68.41 Body mass index [BMI] 40.0-44.9, adult; I10 Essential (primary) hypertension; E78.00 Pure hypercholesterolemia, unspecified; K21.9 Gastro-esophageal reflux disease without esophagitis; G47.33 Obstructive sleep apnea (adult) (pediatric); E03.9 Hypothyroidism, unspecified; Z23 Encounter for immunization

== ENCOUNTER → 2024-10-06 12:50 | Outpatient (BNVA) | payer OTHER, SELFPAY | PROVIDERS: PCP Internal Medicine; Visit Provider Internal Medicine | DX: Z23 Encounter for immunization (principal); E11.65 Type 2 diabetes mellitus with hyperglycemia; Z79.4 Long term (current) use of insulin; E66.01 Morbid (severe) obesity due to excess calories; Z68.41 Body mass index [BMI] 40.0-44.9, adult; I10 Essential (primary) hypertension; E78.00 Pure hypercholesterolemia, unspecified; K21.9 Gastro-esophageal reflux disease without esophagitis; G47.33 Obstructive sleep apnea (adult) (pediatric); E03.9 Hypothyroidism, unspecified | CPT/HCPCS: 83036; 90471; 90715; 99212 ==

== ENCOUNTER 2024-10-14 08:09 | Outpatient (REF) | payer OTHER, SELFPAY ==
[2024-10-14 08:21] LABS: MANUAL DIFF FLAG NO
[2024-10-14 08:37] LABS: Basophils Percent Auto 0.6 % (0-2); Eosinophils Absolute Auto 0.2 X10*3/uL (0.0-0.4); Eosinophils Percent Auto 3.8 % (0-4); Hematocrit 41.1 % (37.0-47.0); Hemoglobin 13.5 g/dl (12.0-16.0); Imm Gran Abs Auto 0.01 X10*3/uL (0.00-0.03); Imm Gran Pct Auto 0.2 % (0.0-0.4); Lymphocytes Absolute Auto 1.8 X10*3/uL (1.2-4.9); Lymphocytes Percent Auto 36.6 % (20-40); Mean Corpuscular HGB Conc 32.8 g/dl (31.0-35.0); Mean Corpuscular Hemoglobin 30.8 pg (27.0-33.0); Mean Corpuscular Volume 93.8 fL (80.0-98.0); Mean Platelet Volume 10.2 fL (9.4-12.3); Monocytes Absolute Auto 0.5 X10*3/uL (0.1-1.2); Monocytes Percent Auto 9.4 % (2-11); Neutrophils Absolute Auto 2.5 x10*3/uL (2.0-8.3); Neutrophils Percent Auto 49.4 % (45-73); Platelet Count 147 X10*3/uL (160-400); Red Blood Count 4.38 X10*6/uL (4.20-5.50); Red Cell Distribution Width 12.7 % (11.0-16.0)
[2024-10-14 08:46] LABS: Estimated Average Glucose 146 mg/dL; Hemoglobin A1c % 6.7 % (<6.0); Total Hemoglobin (HGBA1C) 3548.8404 umol/L
[2024-10-14 09:13] LABS: Creatinine Urine 91.31 mg/dL; Microalbum/Creatinine Ratio Ur 10.9 ug/mg cr (<30)
[2024-10-14 09:14] LABS: Alanine Aminotransferase 26 U/L (0-31); Alkaline Phosphatase 44 U/L (39-117); Anion Gap 10 (12-20); Bilirubin Total 0.7 mg/dL (0.0-1.0); Blood Urea Nitrogen 16 mg/dL (9-16); Calcium 9.8 mg/dL (8.4-10.2); Carbon Dioxide 26 mmol/L (22-29); Chloride 110 mmol/L (96-108); Cholesterol 140 mg/dL (<200); Estimated Glomerular Filt Rate > 60; Glucose Random 121 mg/dL (60-115); HDL Cholesterol 60 mg/dL (>40); LDL Cholesterol Calculated 61 mg/dL (<100); Sodium 142 mmol/L (135-145); Total Protein 6.6 g/dL (6.5-8.0); Triglycerides 98 mg/dL (<150)
[2024-10-14 09:24] LABS: Aspartate Amino Transferase 25 U/L (5-31)
[2024-10-14 09:27] LABS: Free T4 (Free Thyroxine) 1.22 ng/dL (0.71-1.85); Thyroid Stimulating Hormone 2.25 uIU/mL (0.32-4.0); Vitamin D 25-OH Total 43.2 ng/mL (>30)
[2024-10-14 09:34] LABS: Folate 15.3 ng/mL (> or = 4.0); Vitamin B12 1705 pg/mL (200-900)
== END 2024-10-14 08:10 | disposition home or self-care (01) ==
LOC: HO.LAB 08:09
PROVIDERS: PCP Internal Medicine; Visit Provider Internal Medicine
DX: E11.65 Type 2 diabetes mellitus with hyperglycemia (principal); E78.00 Pure hypercholesterolemia, unspecified; Z79.4 Long term (current) use of insulin
CPT/HCPCS: 36415; 80053; 80061; 82043; 82306; 82570; 82607; 82746; 83036; 84439; 84443; 85025

== ENCOUNTER 2024-11-19 11:55 | Outpatient (REF) | payer OTHER, SELFPAY ==
--- NOTE | ~2024-11-19 | XR_ITS ---
EXAMINATION: XR KNEE 1-2 VIEWS RIGHT HISTORY: M25.561 - Pain in right knee COMPARISON: There are no prior studies available for comparison. FINDINGS: AP and lateral views of the right knee are submitted. The patient is status post total knee arthroplasty. The orthopedic elements are in anatomic alignment. There is no radiographic evidence of loosening. There is no fracture or dislocation. The soft tissues are unremarkable. There is no joint effusion. XR/XR knee RT 2V IMPRESSION: Status post right total knee arthroplasty. Electronically signed by: Lico Granados MD 11/19/2024 03:53 PM EDT
--- NOTE | ~2024-11-19 | XR_ITS ---
EXAMINATION: XR HIP 2 OR MORE VIEWS RIGHT HISTORY: M25.551 - Pain in right hip COMPARISON: Comparison is made with the prior examination dated 04/19/2022. FINDINGS: Two views of the right hip are submitted. Osseous mineralization is normal. There is no fracture or dislocation. There is moderate joint space narrowing. The soft tissues are unremarkable. XR/XR hip RT min 2V IMPRESSION: Moderate joint space narrowing. Electronically signed by: Lico Granados MD 11/19/2024 03:55 PM EDT
--- OUTSIDE RECORDS SUMMARY | 2024-11-19 12:48 | XMS_ITS | Encounter Summary ---
Author Organization [facility] Address [address] [place] [address] Care Team Providers Care Set Up Mechanic Automatic Line Name Role Phone Rush Watts MD Primary Care Provider [phone] Encounter Details Date Type Department Care Team (Late st Contact Info) Description 09/12/2008 Orders Only [facility] [address] [place] [phone] Rush Watts MD [facility] [address] [place] [address] Social History Tobacco Use Types Packs/Day Years [...] of this encounter Procedures * Due to [place] state law, this organization might not be [...] in this encounter Results * Due to [place] state law, this organization might not be sharing negative HIV tests. * TSH (THYROTROPIN) (09/12/2008) TSH, THYROTROPIN 2.37 0.40 - 4.50 UIU/ML 09/12/2008 09/12/2008 3:4 8 PM EST Narrative 09/17/2008 3:20 AM EST Report Comments: TSH ADDED 09/16/2008 us Rush Watts MD LABORATORY Final Result * (ABNORMAL) HEMOGLOBIN A1C (09/12/2008) Pathologist [facility] Hemoglobin A1C 6.1(H) 0.0 - 5.9 % GLUCOSE MEAN VALUE 140 MG/DL 09/12/2008 09/12/2008 3:4 8 PM EST us Rush Watts MD LABORATORY Final Result * CK, CREATINE KINASE (CPK, TOTAL) (09/12/2008) Pathologist [facility] CK (CREATINE KINASE) 34 29 - 143 U/L 09/12/2008 09/12/2008 3:4 8 PM EST Result Rehan Watts MD LAB SAME DAY RESULT Final Resul t * (ABNORMAL) CARDIAC RISK/LIPID PROFILE I (09/12/2008) Pathologist [facility] CHOLESTEROL, TOTAL 153 125 - 200 MG/DL [...] 09/12/2008 09/12/2008 3:4 8 PM EST Result [facility] Rush Watts MD LABORATORY Final Result * [...] 09/12/2008 09/12/2008 3:4 8 PM EST Result [facility] us Rush Watts MD LAB SAME DAY RESULT Final Resul t * ASPARTATE AMINOTRANSFERASE (AST), SERUM (09/12/2008) AST (SGOT) 21 10 - 35 U/L 09/12/2008 09/12/2008 3:4 8 PM EST Result [facility] Rush Watts MD LAB SAME DAY RESULT [...] uncontrolled documented in this encounter Care Teams Set Up Mechanic Automatic Line Relationship Specialty Start Date End Date Rush Watts MD [facility] [address] [place] [phone] PCP - General 10/12/05 documented as of this encounter
--- OUTSIDE RECORDS SUMMARY | 2024-11-19 12:48 | XMS_ITS | Encounter Summary ---
Author Organization [facility] Address [address] [place] [address] Care Team Providers Care Manufacturing Group Leader Name Role Phone Rush Watts MD Primary Care Provider [phone] Encounter Details Date Type Department Care Team (Late st Contact Info) Description 07/19/2009 Orders Only [facility] Pre-Admission Testing [address] [facility] [address] [place] [address] Shayla Zurita MD [address] [place] [address] Medications Social History Tobacco Use Types Packs/Day [...] on filedocumented in this encounter Care Teams Manufacturing Group Leader Relationship Specialty Start Date End Date Rush Watts MD [facility] [address] [place] [phone] PCP - General 10/12/05 documented as of this encounter
--- OUTSIDE RECORDS SUMMARY | 2024-11-19 12:48 | XMS_ITS | Encounter Summary ---
Author Organization [facility] Address [address] [place] [address] Care Team Providers Care Strategy Manager Name Role Phone Rush Watts MD Primary Care Provider [phone] Encounter Details Date Type Department Care Team (Late st Contact Info) Description 08/15/2006 Orders Only [facility] [address] [place] [phone] Rush Watts MD [facility] [address] [place] [address] Social History Tobacco Use Types Packs/Day Years [...] - 5.5 UIU/ML [facility] (CLIA# [id number]) 08/15/2006 08/15/2006 2:5 4 PM EST Rush Watts MD LABORATORY Final Result Performing Organization Address [facility]/ZIP Co de Phone Number [facility] (CLIA# [id number]) [address] [place] [address] * ASPARTATE AMINOTRANSFERASE (AST), SERUM (08/15/2006) AST (SGOT) 18 3 - 35 U/L [facility] (CLIA# [id number]) 08/15/2006 08/15/2006 2:5 4 PM EST Rush Watts MD LAB SAME DAY RESULT Final Resul t Performing Organization Address [facility]/ZIP Co de Phone Number [facility] (CLIA# [id number]) [address] [place] [address] * ALANINE AMINOTRANSFERASE (ALT), SERUM (08/15/2006) ALT (SGPT) 24 3 - 40 U/L [facility] (CLIA# [id number]) 08/15/2006 08/15/2006 2:5 4 PM EST Rush Watts MD LAB SAME DAY RESULT Final Resul t Performing Organization Address City/[facility]/ZIP Co de Phone Number [facility] (CLIA# [id number]) [address] [place] [address] * (ABNORMAL) CARDIAC RISK/LIPID PROFILE I (08/15/2006) CHOLESTEROL, TOTAL 173 100 - 199 MG/DL [facility] (CLIA# [id number]) TRIGLYCERIDES 177(H) 30 - 149 MG/DL [facility] (CLIA# [id number]) HDL-CHOLESTEROL 46 40 - 77 MG/DL [facility] (CLIA# [id number]) LDL-CHOLESTEROL 92 62 - 130 MG/DL [facility] (CLIA# [id number]) Comment: RISK CATEGORY: ??LDL-CHOLESTEROL GOAL CHD AND CHD RISK EQUIVALENTS: ??<100 MULTIPLE (2+) FACTORS: ??<130 ZERO TO ONE RISK FACTOR: ??<160 CHD RELATIVE RISK RATIO (TOTAL/HDL) 3[facility] (CLIA# [id number]) Comment:(0.7 X AVERAGE) 08/15/2006 08/15/2006 2:5 4 PM EST Rush Watts MD LABORATORY Final Result Performing Organization Address City/[facility] Co de Phone Number [facility] (CLIA# [id number]) [address] [place] [address] * OCCULT BLOOD (STOOL GUAIAC) 3 SAMPLES (08/15/2006) OCCULT BLOOD GUAIAC (STOOL) SEE TEXT [facility] (CLIA# [id number]) Comment: SOURCE: STOOL NOT DETECTED OCCULT BLOOD GUAIAC (STOOL) SEE TEXT [facility] (CLIA# [id number]) Comment: SOURCE: STOOL NOT DETECTED OCCULT BLOOD GUAIAC (STOOL) SEE TEXT [facility] (CLIA# [id number]) Comment: SOURCE: STOOL NOT DETECTED 08/15/2006 08/16/2006 1:2 4 AM EST Rush Watts MD LABORATORY Final Result Performing Organization Address City/[facility]/ZIP Co de Phone Number [facility] (CLIA# [id number]) [address] [place] [address] * (ABNORMAL) CBC 5 PART DIFF (08/15/2006) WHITE BLOOD COUNT 5.5 3.8 - 10.8 1000/UL [facility] (CLIA# [id number]) RBC 4.72 3.80 - 5.10 MIL/UL [facility] (CLIA# [id number]) Hemoglobin 14.3 11.7 - 15.5 G/DL [facility] (CLIA# [id number]) HCT (HEMATOCRIT) 42 35 - 45 % [facility] (CLIA# [id number]) MCV 89 80 - 100 FL [facility] (CLIA# [id number]) MCH 30 27 - 33 PG [facility] (CLIA# [id number]) MCHC 34 32 - 36 G/DL [facility] (CLIA# [id number]) BAND % 0 0 - 5 % [facility] (CLIA# [id number]) NEUTROPHIL % 54 48 - 75 % [facility] (CLIA# [id number]) LYMPHOCYTE % 30 17 - 40 % [facility] (CLIA# [id number]) MONOCYTE % 8 0 - 14 % [facility] (CLIA# [id number]) EOSINOPHIL % 7(H) 0 - 5 % [facility] (CLIA# [id number]) BASOPHIL % 1 0 - 3 % [facility] (CLIA# [id number]) ATYPICAL LYMPHOCYTE % 0 0 - 5 % [facility] (CLIA# [id number]) PLATELETS 147 140 - 400 THOU/UL [facility] (CLIA# [id number]) BANDS # 0 0 - 500 /UL [facility] (CLIA# [id number]) NEUTROPHILS # 2970 1500 - 7800 /UL [facility] (CLIA# [id number]) LYMPHOCYTES # 1650 850 - 3900 /UL [facility] (CLIA# [id number]) MONOCYTES # 440 200 - 950 /UL [facility] (CLIA# [id number]) EOSINOPHILS # 385 50 - 550 /UL [facility] (CLIA# [id number]) BASOPHILS # 55 0 - 200 /UL [facility] (CLIA# [id number]) ATYPICAL LYMPHOCYTES # 0 0 - 200 /UL [facility] (CLIA# [id number]) RDW 13.4 11.0 - 15.0 % [facility] (CLIA# [id number]) MPV 10.9 7.5 - 11.5 FL [facility] (CLIA# [id number]) 08/15/2006 08/15/2006 2:5 4 PM EST us Rush Watts MD LAB SAME DAY RESULT Final Resul t [facility] (CLIA# [id number]) [address] [place] [address] * (ABNORMAL) BASIC METABOLIC PANEL (08/15/2006) CALCIUM 9.5 8.5 - 10.4 MG/DL [facility] (CLIA# [id number]) BUN 22 7 - 25 MG/DL [facility] (CLIA# [id number]) CREATININE 0.9 0.5 - 1.2 MG/DL [facility] (CLIA# [id number]) BUN/Creatinine Ratio 24 6 - 25 [facility] (CLIA# [id number]) Glucose 111(H) 65 - 99 MG/DL [facility] (CLIA# [id number]) SODIUM 141 135 - 146 MMOL/L [facility] (CLIA# [id number]) POTASSIUM 4.6 3.5 - 5.3 MMOL/L [facility] (CLIA# [id number]) CHLORIDE 107 98 - 110 MMOL/L [facility] (CLIA# [id number]) CARBON DIOXIDE 24 21 - 33 MMOL/L [facility] (CLIA# [id number]) 08/15/2006 08/15/2006 2:5 4 PM EST us Rush Watts MD LABORATORY Final Result [facility] (CLIA# [id number]) [address] [place] [address] documented in this encounter Visit Diagnoses Diagnosis Hyperlipidemia Other and unspecified hyperlipidemia documented in this encounter Care Teams Strategy Manager Relationship Specialty Start Date End Date uRsh Watts MD [facility] [address] [place] [phone] PCP - General 10/12/05 documented as of this encounter
--- OUTSIDE RECORDS SUMMARY | 2024-11-19 12:48 | XMS_ITS | Patient Health Record ---
Author Organization [facility] Address [address] [place] [address] Care Team Providers Care Microstrategy Architect Developer Name Role Phone Luzma Galindo Primary Care Provider Unavailabl e Black, Gabriella Unavailable [phone] Allergies Allergen (clinical drug ingredient) Drug/Non Drug Allergy documented on EMR Reaction Allergy Type Onset Date Status Lisinopril Unknown Drug Allergy Active Results Component Value Reference Range Notes X ray : Foot, left 3V Reviewed date:01/15/2024 01:32:21 PM Interpretation:See Examination above Performing Lab: Notes/Report: See Examination above X ray : Foot, right 3V Reviewed date:01/15/2024 01:32:30 PM Interpretation:See Examination above Performing Lab: Notes/Report: See Examination above HEMOGLOBIN A1C (GLYCOHEMOGLO BIN) Reviewed date:04/22/2024 03:04:17 PM Interpretation: Performing Lab: Notes/Report: TOTAL HEMOGLOBIN (HGBA1C) 7.1 HEMOGLOBIN A1C (GLYCOHEMOGLO BIN) Reviewed date:08/05/2024 09:11:33 AM Interpretation: Performing Lab: Notes/Report: HEMOGLOBIN A1C % (HH) 7.1 HEMOGLOBIN A1C (GLYCOHEMOGLO BIN) Reviewed date:11/11/2024 02:17:17 PM Interpretation: Performing Lab: Notes/Report: HEMOGLOBIN A1C % (HH) 6.5 Reason For Referral No Information Medications Medication SIG (Take, Route, Frequency, Duration) Notes Start Date End Date Status Extra Depth Orthopedic Shoes (1 Pair) with Customized Heat Molded Multidensity Innersoles (3 Pair) as directed Dx: NIDDM/Polyneuropathy (E11.42), Hammertoe Foot Deformity (M20.41,M20.42), Preulcerative Skin Lesion(s) (L85.1 08/05/2024 Active Voltaren 1 % as directed Externally 01/15/2024 Active Vitamin C Active Vitamin E Active [place] 3 Active Vitamin A Active Amoxicillin 500 MG TAKE 4 CAPSULES BY M OUTH AT ONE TIME 1 HOUR BEFORE PROCEDURE Oral for 2 Days Active Multivitamin Active Biotin Active Aspirin Active Cyclobenzaprine HCl 5 MG TAKE 1 TABLET O RALLY 3 TIMES A DAY NEEDED FOR MUSCLE SPASM FOR 30 DAYS Oral for 10 Days PRN Active Cholecalciferol Acti ve Cyanocobalamin Activ e Fluticasone Propionate Active Fexofenadine HCl Act katrin Zinc Active Insulin Glargine 11/14/2023 Ac tive Gabapentin 100 MG TAKE 1 CAPSULE BY MO UTH THREE TIMES A DAY Oral for 90 Days Active Losartan Potassium 100 MG TAKE 1 TABLET BY MOUTH EVERY DAY Oral for 90 Days Active Levothyroxine Sodium 88 MCG TAKE 1 TABLE T BY MOUTH EVERY DAY IN THE MORNING Oral for 90 Days Active One Touch Delica Lancets Active Simvastatin 40 MG TAKE 1 TABLET BY CELENA TH EVERY DAY AT BEDTIME Oral for 90 Days Active metFORMIN HCl 500 MG 1000 MG (2 X 500 MG ) ORALLY 2 TIMES A DAY FOR 90 DAYS Oral for 90 Days Active Copper Active PreserVision AREDS A ctive Solifenacin Succinate 10 MG TAKE 1 TABLE T BY MOUTH EVERY DAY Oral for 90 Days Active Immunizations Vaccine Route Administration Date Status [...] Problem Acquired hammer toe of right foot (7229820980393791 ) Other hammer toe(s) (acquired), right foot (M20.41) Active confirmed Problem Acquired hammer toe of left foot (0914746386485051 ) Other hammer toe(s) (acquired), left foot (M20.42) Active confirmed Problem Polyneuropathy due to type 2 diabetes mellitus (046768851) Type 2 diabetes mellitus with diabetic polyneuropathy (E11.42) Active confirmed Problem Arthritis (9055790) Arthritis (M19.90) Active confirmed Problem Osteoarthritis of midtarsal joint of left foot (7660915321140921 ) Osteoarthritis of midtarsal joint of left foot (M19.072) Active confirmed Problem Osteoarthritis of midtarsal joint of right foot (7262919429495095 ) Osteoarthritis of midtarsal joint of right foot (M19.071) Active confirmed Vital Signs Blood pressure diastolic 68 mm Hg 11/11/2024 Height 5 ft 5in in 11/11/2024 Blood pressure systolic 136 mm Hg 11/11/2024 Weight 248 lbs 11/11/2024 BMI 41.26 kg/m2 11/11/2024 Procedures Procedure Date Ordered Date Performed Result Body Sit e 46247-HYYN SKIN LESIONS, 2 TO 4 01/15/2024 N/A X2475-EJGGOTKF DYSTROPHIC NAILS ANY # 01/15/2024 N/A 00508-RJQN SKIN LESIONS, 2 TO 4 04/22/2024 N/A 48481, C3942-YLMOB/INJECT, JOINT/BURSA 04/22/2024 N/A L9608-TPZBWMOF DYSTROPHIC NAILS ANY # 04/22/2024 N/A 50040-VKQA SKIN LESIONS, 2 TO 4 08/05/2024 N/A L3285-PASWFTKS DYSTROPHIC NAILS ANY # 08/05/2024 N/A 84217-XCIC SKIN LESIONS, 2 TO 4 11/11/2024 N/A G9164-SXRKDVAU DYSTROPHIC NAILS ANY # 11/11/2024 N/A Encounters Encounter Location Date Provider Diagnosis [facility] [address] [place] [address] 01/15/2024 Gabriella Black Type 2 diabetes mellitus [...] foot M77.42 and Metatarsalgia, right foot M77.[address] [address] 04/22/2024 Gabriella Delvalle Type 2 diabetes mellitus [...] foot M77.42 and Metatarsalgia, right foot M77.[address] [address] 08/05/2024 Gabriella Black Type 2 diabetes mellitus [...] Other hammer toe(s) (acquired), left foot M20.[address] [address] 11/11/2024 Gabriella Black Type 2 diabetes mellitus with diabetic polyneuropathy E11.42 Assessments Encounter Date Diagnosis (ICD Code) Assessment [...] mellitus with diabetic polyneuropathy (ICD-10 - E11.42) 11/11/2024 Type 2 diabetes mellitus with diabetic polyneuropathy [...] foot (ICD-10 - M19.072) Patient Educated with: JULIAN [email or web address] ([email or web address]) 01/15/2024 Pain in right foot (ICD-10 - [...] Treatment Pending Test Test Name Order Date 60944-NAHY SKIN LESIONS, 2 TO 4 01/15/20 53752-YBPY SKIN LESIONS, 2 TO 4 04/22/20 49328-PQFK SKIN LESIONS, 2 TO 4 08/05/19 10443-BQNA SKIN LESIONS, 2 TO 4 11/12/19 25 [address]8987, Z7298-QQAGF/INJECT, JOINT/BURSA 1 A1023-JXELBRWV DYSTROPHIC NAILS ANY # B8586-QQPWRZCJ DYSTROPHIC NAILS ANY # C6054-KASXFZRQ DYSTROPHIC NAILS ANY # Q2985-ARDLRBIM DYSTROPHIC NAILS ANY # Next Appt Details Provider Name:Gabriella Delvalle , 02/14/2025 02:00:00 PM, [address] [place] [address], [phone], Insurance Providers Payer Name Payer Address Payer Phone Subscriber Number Group Number Insured Name Patient Relationship to Insured Coverage Start Date Coverage End Date [facility] [employer] Claims [address] [place] [id number] Vanessa Rowan Self - patient is the [...]
--- OUTSIDE RECORDS SUMMARY | 2024-11-19 12:48 | XMS_ITS | Encounter Summary ---
Author Organization [facility] Address [address] [place] [address] Care Team Providers Care Director Of Vital Statistics Name Role Phone Rush Watts MD Primary Care Provider [phone] Encounter Details Date Type Department Care Team (Late st Contact Info) Description 02/24/2007 Orders Only [facility] [address] [place] [phone] Rush Watts MD [facility] [address] [place] [address] Social History Tobacco Use Types Packs/Day Years [...] of this encounter Procedures * Due to [place] state law, this organization might not be [...] in this encounter Results * Due to [place] state law, this organization might not be sharing negative HIV tests. * MICROALBUMIN (RANDOM URINE) (02/24/2007) CREATININE (URINE) 172 20 - 320 MG/DL [facility] (CLIA# [id number]) Microalbumin (Urine) < 5 0 - 29 UG/ML [facility] (CLIA# [id number]) MICROALBUMIN/CREA T RATIO (URINE) SEE TEXT 0 - 29 [facility] (CLIA# [id number]) Comment: UNITS: UG/MG CREATININE MICROALBUMIN <5, CANNOT CALCULATE RATIO 02/24/2007 02/24/2007 4:1 8 PM EDT Rush Watts MD LABORATORY Final Result Performing Organization Address [facility] de Phone Number [facility] (CLIA# [id number]) [address] [place] [address] * HEMOGLOBIN A1C (02/24/2007) Hemoglobin A1C 5.9 0.0 - 5.9 % [facility] (CLIA# [id number]) Comment: WELL-CONTROLLED OR NON-DIABETIC: < 6.0% DIABETIC HEMOGLOBIN A1C: THERAPEUTIC GOAL: < 7% RE-EVALUATE THERAPY: > 8% GLUCOSE MEAN VALUE 133 MG/DL [facility] (CLIA# [id number]) 02/24/2007 02/24/2007 4:1 8 PM EDT Rush Watts MD LABORATORY Final Result Performing Organization Address [facility] Co de Phone Number [facility] (CLIA# [id number]) [address] [place] [address] * TSH, THYROTROPIN (02/24/2007) TSH, THYROTROPIN 1.33 0.40 - 4.50 UIU/ML [facility] (CLIA# [id number]) 02/24/2007 02/24/2007 4:1 8 PM EDT Rush Watts MD LABORATORY Final Result Performing Organization Address [facility]/ZIP Co de Phone Number [facility] (CLIA# [id number]) [address] [place] [address] * CARDIAC RISK/LIPID PROFILE I (02/24/2007) Pathologist [facility] CHOLESTEROL, TOTAL 189 125 - 200 MG/DL [facility] (CLIA# [id number]) TRIGLYCERIDES 119 30 - 149 MG/DL [facility] (CLIA# [id number]) HDL-CHOLESTEROL 48 40 - 77 MG/DL [facility] (CLIA# [id number]) LDL-CHOLESTEROL 117 62 - 130 MG/DL [facility] (CLIA# [id number]) Comment: RISK CATEGORY: ??LDL-CHOLESTEROL GOAL CHD AND CHD RISK EQUIVALENTS: ??<100 MULTIPLE (2+) FACTORS: ??<130 ZERO TO ONE RISK FACTOR: ??<160 CHD RELATIVE RISK RATIO (TOTAL/HDL) 3.94 0.0 - 5.[address] [facility] (CLIA# [id number]) Comment:(0.8 X AVERAGE) 02/24/2007 02/24/2007 4:1 8 PM EDT Rush Watts MD LABORATORY Final Result Performing Organization Address City/[facility]/ZIP Co de Phone Number [facility] (CLIA# [id number]) [address] [place] [address] * ASPARTATE AMINOTRANSFERASE (AST), SERUM (02/24/2007) Pathologist [facility] AST (SGOT) 17 10 - 35 U/L [facility] (CLIA# [id number]) 02/24/2007 02/24/2007 4:1 8 PM EDT Rush Watts MD LAB SAME DAY RESULT Final Resul t Performing Organization Address [facility] de Phone Number [facility] (CLIA# [id number]) [address] [place] [address] * ALANINE AMINOTRANSFERASE (ALT), SERUM (02/24/2007) ALT (SGPT) 21 6 - 40 U/L [facility] (CLIA# [id number]) 02/24/2007 02/24/2007 4:1 8 PM EDT Rush Watts MD LAB SAME DAY RESULT Final Resul t Performing Organization Address [facility] Phone Number [facility] (CLIA# [id number]) [address] [place] [address] * OCCULT BLOOD (STOOL GUAIAC) 3 SAMPLES (02/24/2007) OCCULT BLOOD GUAIAC (STOOL) SEE TEXT [facility] (CLIA# [id number]) Comment: SOURCE: STOOL NOT DETECTED OCCULT BLOOD GUAIAC (STOOL) SEE TEXT [facility] (CLIA# [id number]) Comment: SOURCE: STOOL NOT DETECTED OCCULT BLOOD GUAIAC (STOOL) SEE TEXT [facility] (CLIA# [id number]) Comment: SOURCE: STOOL NOT DETECTED 02/24/2007 02/25/2007 2:2 8 AM EDT Rush Watts MD LABORATORY Final Result Performing Organization Address [facility] de Phone Number [facility] (CLIA# [id number]) [address] [place] [address] * (ABNORMAL) BASIC METABOLIC PANEL (02/24/2007) CALCIUM 8.7 8.6 - 10.2 MG/DL [facility] (CLIA# [id number]) BUN 23 7 - 25 MG/DL [facility] (CLIA# [id number]) CREATININE 1.0 0.5 - 1.2 MG/DL [facility] (CLIA# [id number]) BUN/Creatinine Ratio 23 6 - 25 [facility] (CLIA# [id number]) Glucose 105(H) 65 - 99 MG/DL [facility] (CLIA# [id number]) SODIUM 141 135 - 146 MMOL/L [facility] (CLIA# [id number]) POTASSIUM 4.4 3.5 - 5.3 MMOL/L [facility] (CLIA# [id number]) CHLORIDE 106 98 - 110 MMOL/L [facility] (CLIA# [id number]) CARBON DIOXIDE 21 21 - 33 MMOL/L [facility] (CLIA# [id number]) 02/24/2007 02/24/2007 4:1 8 PM EDT us Rush Watts MD LAB SAME DAY RESULT Final Resul t [facility] (CLIA# [id number]) [address] [place] [address] documented in this encounter Visit Diagnoses Diagnosis ESSENTIAL HYPERTENSION, BENIGN Essential hypertension, benign GENERAL MEDICAL EXAMINATION Unspecified general medical examination PURE HYPERCHOLESTEROLEMIA Pure hypercholesterolemia HYPOTHYROIDISM Unspecified hypothyroidism DM W/O COMPLICATION TYPE I Type I (juvenile type) diabetes mellitus without mention of complication, not stated as uncontrolled documented in this encounter Care Teams Director Of Vital Statistics Relationship Specialty Start Date End Date Rush Watts MD [facility] [address] [place] [phone] PCP - General 10/12/05 documented as of this encounter
--- OUTSIDE RECORDS SUMMARY | 2024-11-19 12:48 | XMS_ITS | Encounter Summary ---
Author Organization [facility] Address [address] [place] [address] Care Team Providers Care Job Developer Name Role Phone Rush Watts MD Primary Care Provider [phone] Encounter Details Date Type Department Care Team (Late st Contact Info) Description 03/09/2009 Orders Only [facility] [address] [place] [phone] Rush Watts MD [facility] [address] [place] [address] Social History Tobacco Use Types Packs/Day Years [...] Final Result Performing Organization Address [facility] Co de Phone Number [facility] [address] [place] [address] * CK, CREATINE KINASE (CPK, TOTAL) (03/09/2009) CK (CREATINE KINASE) 36 29 - 143 U/L [facility] 03/09/2009 03/09/2009 9:5 4 PM EDT us Rush Watts MD LAB SAME DAY RESULT Final Resul t Performing Organization Address City/[facility]/ZIP Co de Phone Number [facility] [address] [place] [address] * (ABNORMAL) CBC 5 PART DIFF (03/09/2009) Pathologist [facility] WHITE BLOOD COUNT 5.5 3.8 - 10.8 [...] RESULT Final Resul t [facility] [address] [place] [address] * CARDIAC RISK/LIPID PROFILE I (03/09/2009) Pathologist [facility] CHOLESTEROL, TOTAL 154 125 - 200 MG/DL [...] MD LABORATORY Final Result Performing Organization Address [facility] Co de Phone Number [facility] [address] [place] [address] * (ABNORMAL) BASIC METABOLIC PANEL (03/09/2009) CALCIUM [...] RESULT Final Resul t Performing Organization Address [facility] de Phone Number [facility] [address] [place] [address] * ASPARTATE AMINOTRANSFERASE (AST), SERUM (03/09/2009) AST (SGOT) 17 10 - 35 U/L [facility] 03/09/2009 03/09/2009 9:5 4 PM EDT us Rush Watts MD LAB SAME DAY RESULT Final Resul t Performing Organization Address [facility] Co de Phone Number [facility] [address] [place] [address] * ALANINE AMINOTRANSFERASE (ALT), SERUM (03/09/2009) ALT (SGPT) 21 6 - 40 U/L [facility] 03/09/2009 03/09/2009 9:5 4 PM EDT Rush Watts MD LAB SAME DAY RESULT Final Resul t Performing Organization Address City/[facility]/ZIP Co de Phone Number [facility] [address] [place] [address] * (ABNORMAL) HEMOGLOBIN A1C (03/09/2009) Hemoglobin A1C 6.1(H) 0.0 - 5.9 % [facility] GLUCOSE MEAN VALUE 140 MG/DL [facility] 03/09/2009 03/09/2009 9:5 4 PM EDT Rush Watts MD LABORATORY Final Result Performing Organization Address [facility] Co de Phone Number [facility] [address] [place] [address] * MICROALBUMIN (RANDOM URINE) (03/09/2009) CREATININE (URINE) 112 20 - 320 MG/DL [facility] Microalbumin (Urine) < 5 NOT ESTABLISHED [facility] MICROALBUMIN/CR EAT RATIO (URINE) SEE TEXT 0 - 29 [facility] Comment: UNITS: MCG/MG CREATININE MICROALBUMIN <5, CANNOT CALCULATE RATIO 03/09/2009 03/09/2009 9:5 4 PM EDT Rush Watts MD LABORATORY Final Result Performing Organization Address City/[facility] Co de Phone Number [facility] [address] [place] [address] documented in this encounter Visit Diagnoses Diagnosis Type II or unspecified type diabetes mellitus without mention of complication, not stated as uncontrolled Pure hypercholesterolemia Essential hypertension, benign Hypothyroidism Unspecified hypothyroidism documented in this encounter Care Teams Job Developer Relationship Specialty Start Date End Date Rush Watts MD [facility] [address] [place] [phone] PCP - General 10/12/05 documented as of this encounter
--- OUTSIDE RECORDS SUMMARY | 2024-11-19 12:48 | XMS_ITS | Clinical Summary ---
Author Organization [facility] Address [address] [place] [address] Care Team Providers Care Cricket Coach Name Role Phone Rush Saab MD Primary Care Provider [phone] Allergies Active Allergy Reactions Criticality Noted Date [...] SAAB MD Obesity 08/31/1987 Overview (03/02/2007): 08/31/1987 Jillian MARTINEZ M.D. Urinary incontinence Overview (11/19/2013): , [...] 2012 COVID-19 Vaccine ( season) 2024 Influenza (Season Ended) 2025 009, 06/29/2009, 06/02/2008, Additional history exists Bone Density Completed [...] Zoster (Zostavax) Discontinued Procedures * Due to [place] [employer] law, this organization might not be sharing [...] EDT Routine General Medical Examination At A [facility] Screening For Malignant Neoplasm Of The Cervix Routine Gynecological Examination DUAL ENERGY DEXA BONE DENSITY ONE/MORE SITES AXIAL SKEL Routine 12/13/2003 2:06 PM EDT Special Screening for Osteoporosis from Last 3 Months or Most Recently Relevant to Health Maintenance Results * Due to [facility] law, this organization might not be sharing negative HIV tests. * DIGITAL SCREENING MAMMO (01/23/2011 9:16 AM EDT) RADIOLOGY REPORT DEPARTMENT OF RADIOLOGY Patient: IRVING NOVAK SISTER Unit #: [id number] Ordering MD: RUSH SAAB MD : [id number] Procedure: Digital Screening Mammo Age: 75 Location: C.MAMMO Exam Date: 01/23/11 Status: REG CLI Room/Bed: Primary MD: RUSH SAAB MD Patient Order: [id number] Additional Copy: ??RUSH SAAB MD #[id number] - DIGSCRMAM BILATERAL DIGITAL SCREENING MAMMOGRAM WITH [...] 1 year screening mammogram is recommended. POI: [place] Electronically signed by: Nikolai Hoyt M.D. hr/:01/30/2011 09:08:07 letter sent: A-Normal Benign Mammogram BI-RADS: 1 Negative [facility] RAD Anatomical Region Laterality Modality Other 01/23/2011 9:16 AM EDT Narrative 01/31/2011 8:01 AM EDT Reason for Study/History: Routine. TEST(S) PROCESSED BY [facility] Rush Saab MD [facility] Final Result * URINE MALB AND CREAT PROFILE (09/26/2010 8:40 AM EST) CREATININE, URINE RANDOM 81.0 mg/dL [facility] MICROALBUMIN, URINE RANDOM < 3.0 0 - 20 mg/L [facility] MICROALBUM/CREATI NINE RATIO, UR INVALID mg/g [facility] Comment: WHEN URINE CREATININE IS <12.5, OR MICROALBUMIN <3.0, THE MICROALBUMIN/CREATININE RATIO IS INVALID FOR THE LABORATORY METHODOLOGY. 09/26/2010 8:40 AM EST 09/26/2010 8:43 AM EST Rush Saab MD LABORATORY Edited [facility] [address] [place] [address] * LIPID PANEL (09/26/2010 8:34 AM EST) TRIGLYCERIDES 156 mg/dL [facility] Comment: NORMAL: ? <150 mg/dL BORDERLINE HIGH: 150-199 mg/dL HIGH: ?200-499 mg/dL VERY HIGH ? >499 mg/dL CHOLESTEROL 156 mg/dL [facility] Comment: DESIRABLE: ?<200 mg/dL BORDERLINE HIGH: 200-239 mg/dL HIGH: ? >239 mg/dL HDL CHOLESTEROL 47.2 mg/dL [facility] Comment: DESIRABLE: ? >60 mg/dL BORDERLINE: ?40-59 mg/dL UNDESIRABLE: ? <40 mg/dL LDL CHOLESTEROL, CALCULATED 77.6 mg/dL [facility] Comment: OPTIMAL: ?<100 mg/dL NEAR OPTIMAL: ? <130 mg/dL BORDERLINE HIGH: 130-159 mg/dL HIGH: ?160-189 mg/dL VERY HIGH ? >189 mg/dL VLDL CHOLESTEROL 31.2 2.0 - 49.0 mg/dL [facility] CHOL/HDL RATIO 3.31 0.0 - 4.[address] [facility] 09/26/2010 8:34 AM EST 09/26/2010 8:42 AM EST us Rush Saab MD LABORATORY Edited [facility] [address] [place] [address] * (ABNORMAL) BASIC METABOLIC PANEL (09/26/2010 8:34 AM EST) SODIUM 143 132 - 146 mMOL/L [facility] POTASSIUM 4.8 3.5 - 5.5 mMOL/L [facility] CHLORIDE 106 98 - 109 mMOL/L [facility] CARBON DIOXIDE 34(H) 20 - 31 mMOL/L [facility] ANION GAP 8 7 - 16 mMOL/L [facility] BLOOD UREA NITROGEN 18 9 - 23 mg/dL [facility] CREATININE 0.90 0.5 - 1.3 mg/dL [facility] GLOMERULAR FILTRATION RATE > 60 eGFR [facility] Comment:>=60mL/min/1.73m 2 GLUCOSE 143(H) 60 - 99 mg/dL [facility] CALCIUM 9.5 8.2 - 10.9 mg/dL [facility] 09/26/2010 8:34 AM EST 09/26/2010 8:42 AM EST Rush Saab MD LABORATORY Edited [facility] [address] [place] [address] * DUAL ENERGY DEXA BONE DENSITY ONE/MORE [...] mineral density lumbar spine and left hip. [facility] (CLIA# [id number]) Anatomical Region Laterality Modality Other 12/13/2003 2:06 PM EDT Narrative 12/14/2003 7:26 AM EDT Reason for Study/History: BONE DENSITY L SPINE L HIP Test(s) processed by : [facility] Kelly Tran MD GENERAL IMAGING- OTHER Final Re sult from Last 3 Months or Most Recently Relevant to Health Maintenance Insurance [facility] DUAL Care Teams Cricket Coach Relationship Specialty Start Date End Date Rush Saab MD [facility] [address] [place] [phone] PCP - General 10/12/05
--- OUTSIDE RECORDS SUMMARY | 2024-11-19 12:48 | XMS_ITS ---
Author Organization [facility] Address [address] [place] [address] Care Team Providers Care Transitional Care Manager Name Role Phone MateoLuzma Primary Care Provider Unavailabl e Black, Gabriella Unavailable [phone] Allergies Allergen (clinical drug ingredient) Drug/Non Drug Allergy documented on EMR Reaction Allergy Type Onset Date Status Lisinopril Unknown Drug Allergy Active REASON FOR VISIT At Risk Footcare, Foot [...] Oral for 2 Days Active Multivitamin Active Anna 3 Active Vitamin A Active Vitamin C [...] an other tobacco user? No Vital Signs Height 5 ft 5in in 04/22/2024 Weight 241 lbs 04/22/2024 BMI 40.1 kg/m2 04/22/2024 Blood pressure systolic 128 mm Hg 04/22/20 24 Blood pressure diastolic 58 mm Hg 024 Procedures Procedure Date Ordered Date Performed Result Body Sit e 24965-QSKH SKIN LESIONS, 2 TO 4 04/22/2024 N/A 85367, U8591-LSADK/INJECT, JOINT/BURSA 04/22/2024 N/A C7289-[id number] DYSTROPHIC NAILS ANY # 04/22/2024 N/A Encounters Encounter Location Date Provider Diagnosis [facility] [address] [place] [address] 04/22/2024 Gabriella Black Type 2 diabetes mellitus [...] (INJECTIONTHERAPY.pdf) Pending Test Test Name Order Date 77790-CKJB SKIN LESIONS, 2 TO 4 04/22/20 24 92701, L6854-HWPNZ/INJECT, JOINT/BURSA 1 I2297-QDYMORNX DYSTROPHIC NAILS ANY # Next Appt Details Follow Up: prn, Reason: Provider Name:Gabriella Delvalle , 02/14/2025 02:00:00 PM, [address] [place] [address], [place], [address], Procedure Notes * Category Sub-Category [...] or Cutting o f Benign Hyperkeratotic Lesion(s) 53022 ( 2-4 Lesions ) - The Benign [...] Notes * Wilmer NOVAKOB:1935 (88 yo F)Acc No.[id number]:04/22/2024 Progress Note Patient:?Vanessa Novak Provider:?Gabriella Delvalle DPM :1935???Age:88 Y???Sex:Female D ate:04/22/2024 Address:[address] [place] [address], [facility] Pcp:Luzma Galindo Subjective: * Chief Complaints: * [...] ?Marital status: single. 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 * Medications:?TakingOne Touch Delica Lancets PreserVision AREDS Copper Zinc Vitamin E Vitamin C Vitamin A Anna 3 Multivitamin Amoxicillin 500 MG Capsule TAKE [...] Taking Vitamin C Taking Vitamin A Taking Anna 3 Taking Multivitamin Taking Amoxicillin 500 MG [...] Educated with: INJECTIONTHERAPY.pdf (INJECTIONTHERAPY.pdf)?? * Procedures:?Injection:?Sm. Joint, Bursa? Injection - sm/med joint bursa/capsule with 1cc [...] sugars.?Keratoma Treatment:?Parring or Cutting of Benign Hyperkeratotic Lesion(s)?16325 ( 2-4 Lesions ) - The Benign [...] or bed tissue 6-10 (G0127).? * Procedure Codes:?62380 TRIM SKIN LESIONS, 2 TO 4, Modifiers: XS G0127 TRIMMING DYSTROPHIC NAILS ANY #, Modifiers: XS J0702 INJ BETAMETHSN ACTAT&SOD PHOSPH- [id number] DRAIN/INJECT, JOINT/BURSA, Modifiers: XS * Preventive Medicine:? [...] Provider:?Gabriella Delvalle DPM Date:?2023 Generated for Car palomares/Miller/Jenniferitting on:?11/19/2024 12:48 PM EDT History and Physical Notes * [...]
--- OUTSIDE RECORDS SUMMARY | 2024-11-19 12:48 | XMS_ITS | Encounter Summary ---
Author Organization [facility] Address [address] [place] [address] Care Team Providers Care Medical Massage Therapist Name Role Phone Rush Watts MD Primary Care Provider Encounter Details Date Type Department Care Team (Late st Contact Info) Description 02/20/2006 Orders Only [facility] [address] [place] [phone] Rush Watts MD [facility] [address] [place] [address] Social History Tobacco Use Types Packs/Day Years [...] 8.5 - 10.4 MG/DL [facility] (CLIA# [id number]) BUN 21 7 - 25 MG/DL [facility] (CLIA# [id number]) CREATININE 1.0 0.5 - 1.2 MG/DL [facility] (CLIA# [id number]) BUN/Creatinine Ratio 21 6 - 25 [facility] (CLIA# [id number]) Glucose 107(H) 65 - 99 MG/DL [facility] (CLIA# [id number]) SODIUM 142 135 - 146 MMOL/L [facility] (CLIA# [id number]) POTASSIUM 4.8 3.5 - 5.3 MMOL/L [facility] (CLIA# [id number]) CHLORIDE 107 98 - 110 MMOL/L [facility] (CLIA# [id number]) CARBON DIOXIDE 26 21 - 33 MMOL/L [facility] (CLIA# [id number]) 02/20/2006 02/20/2006 2:5 1 PM EDT Rush Watts MD LABORATORY Final Result [facility] (CLIA# [id number]) [address] [place] [address] * CBC 5 PART DIFF (02/20/2006) WHITE BLOOD COUNT 5.0 3.8 - 10.8 1000/UL [facility] (CLIA# [id number]) RBC 4.50 3.80 - 5.10 MIL/UL [facility] (CLIA# [id number]) Hemoglobin 13.9 11.7 - 15.5 G/DL [facility] (CLIA# [id number]) HCT (HEMATOCRIT) 41 35 - 45 % [facility] (CLIA# [id number]) MCV 90 80 - 100 FL [facility] (CLIA# [id number]) MCH 31 27 - 33 PG [facility] (CLIA# [id number]) MCHC 34 32 - 36 G/DL [facility] (CLIA# [id number]) BAND % 0 0 - 5 % [facility] (CLIA# [id number]) NEUTROPHIL % 54 48 - 75 % [facility] (CLIA# [id number]) LYMPHOCYTE % 32 17 - 40 % [facility] (CLIA# [id number]) MONOCYTE % 8 0 - 14 % [facility] (CLIA# [id number]) EOSINOPHIL % 5 0 - 5 % [facility] (CLIA# [id number]) BASOPHIL % 1 0 - 3 % [facility] (CLIA# [id number]) ATYPICAL LYMPHOCYTE % 0 0 - 5 % [facility] (CLIA# [id number]) PLATELETS 149 140 - 400 THOU/UL [facility] (CLIA# [id number]) BANDS # 0 0 - 500 /UL [facility] (CLIA# [id number]) NEUTROPHILS # 2700 1500 - 7800 /UL [facility] (CLIA# [id number]) LYMPHOCYTES # 1600 850 - 3900 /UL [facility] (CLIA# [id number]) MONOCYTES # 400 200 - 950 /UL [facility] (CLIA# [id number]) EOSINOPHILS # 250 50 - 550 /UL [facility] (CLIA# [id number]) BASOPHILS # 50 0 - 200 /UL [facility] (CLIA# [id number]) ATYPICAL LYMPHOCYTES # 0 0 - 200 /UL [facility] (CLIA# [id number]) RDW 13.1 11.0 - 15.0 % [facility] (CLIA# [id number]) MPV 10.0 7.5 - 11.5 FL [facility] (CLIA# [id number]) 02/20/2006 02/20/2006 2:5 1 PM EDT Rush Watts MD LAB SAME DAY RESULT Final Resul t Performing Organization Address [facility] de Phone Number [facility] (CLIA# [id number]) [address] [place] [address] * (ABNORMAL) CARDIAC RISK/LIPID PROFILE I (02/20/2006) CHOLESTEROL, TOTAL 177 100 - 199 MG/DL [facility] (CLIA# [id number]) TRIGLYCERIDES 207(H) 30 - 149 MG/DL [facility] (CLIA# [id number]) HDL-CHOLESTEROL 43 40 - 77 MG/DL [facility] (CLIA# [id number]) LDL-CHOLESTEROL 93 62 - 130 MG/DL [facility] (CLIA# [id number]) Comment: RISK CATEGORY: ??LDL-CHOLESTEROL GOAL CHD AND CHD RISK EQUIVALENTS: ??<100 MULTIPLE (2+) FACTORS: ??<130 ZERO TO ONE RISK FACTOR: ??<160 CHD RELATIVE RISK RATIO (TOTAL/HDL) 4.12 [facility] (CLIA# [id number]) Comment:(0.9 X AVERAGE) 02/20/2006 02/20/2006 2:5 1 PM EDT Rush Watts MD LABORATORY Final Result Performing Organization Address [facility] de Phone Number [facility] (CLIA# [id number]) [address] [place] [address] * ALANINE AMINOTRANSFERASE (ALT), SERUM (02/20/2006) ALT (SGPT) 23 3 - 40 U/L [facility] (CLIA# [id number]) 02/20/2006 02/20/2006 2:5 1 PM EDT Rush Watts MD LAB SAME DAY RESULT Final Resul t Performing Organization Address [facility] de Phone Number [facility] (CLIA# [id number]) [address] [place] [address] * ASPARTATE AMINOTRANSFERASE (AST), SERUM (02/20/2006) AST (SGOT) 20 3 - 35 U/L [facility] (CLIA# [id number]) 02/20/2006 02/20/2006 2:5 1 PM EDT us Rush Watts MD LAB SAME DAY RESULT Final Resul t Performing Organization Address City/[facility] Co de Phone Number [facility] (CLIA# [id number]) [address] [place] [address] * TSH, THYROTROPIN (02/20/2006) TSH, THYROTROPIN 1.3 0.3 - 5.5 UIU/ML [facility] (CLIA# [id number]) 02/20/2006 02/20/2006 2:5 1 PM EDT us Rush Watts MD LABORATORY Final Result Performing Organization Address City/[facility] Co de Phone Number [facility] (CLIA# [id number]) [address] [place] [address] documented in this encounter Visit Diagnoses Diagnosis Pure hypercholesterolemia documented in this encounter Care Teams Medical Massage Therapist Relationship Specialty Start Date End Date Rush Watts MD [facility] [address] [place] [phone] PCP - General 10/12/05 documented as of this encounter
--- OUTSIDE RECORDS SUMMARY | 2024-11-19 12:48 | XMS_ITS | Encounter Summary ---
Author Organization [facility] Address [address] [place] [address] Care Team Providers Care Channel Opener Outsoles Name Role Phone Rush Watts MD Primary Care Provider Encounter Details Date Type Department Care Team (Late st Contact Info) Description 08/25/2007 Orders Only [facility] [address] [place] [address] Rush Watts MD [facility] [address] [place] [address] Social History Tobacco Use Types Packs/Day Years [...] of this encounter Procedures * Due to [place] state law, this organization might not be [...] in this encounter Results * Due to [place] state law, this organization might not be sharing negative HIV tests. * TSH, THYROTROPIN (08/25/2007) TSH, THYROTROPIN 1.82 0.40 - 4.50 UIU/ML [facility] (CLIA# [id number]) 08/25/2007 08/25/2007 3:3 1 PM EST Rush Watts MD LABORATORY Final Result Performing Organization Address [facility] Co de Phone Number [facility] (CLIA# [id number]) [address] [place] [address] * LIPID PANEL WITHOUT CARDIAC RISK (08/25/2007) Pathologist [facility] CHOLESTEROL, TOTAL 155 125 - 200 MG/DL [facility] (CLIA# [id number]) TRIGLYCERIDES 141 30 - 149 MG/DL [facility] (CLIA# [id number]) HDL-CHOLESTEROL 55 40 - 77 MG/DL [facility] (CLIA# [id number]) LDL-CHOLESTEROL 72 62 - 130 MG/DL [facility] (CLIA# [id number]) Comment: RISK CATEGORY: ??LDL-CHOLESTEROL GOAL CHD AND CHD RISK EQUIVALENTS: ??<100 MULTIPLE (2+) FACTORS: ??<130 ZERO TO ONE RISK FACTOR: ??<160 08/25/2007 08/25/2007 3:3 1 PM EST Rush Watts MD LABORATORY Final Result Performing Organization Address [facility] de Phone Number [facility] (CLIA# [id number]) [address] [place] [address] * (ABNORMAL) HEMOGLOBIN A1C (08/25/2007) Pathologist [facility] Hemoglobin A1C 6.0(H) 0.0-5.9 < 6.0% % [facility] (CLIA# [id number]) GLUCOSE MEAN VALUE 136 MG/DL [facility] (CLIA# [id number]) 08/25/2007 08/25/2007 3:3 1 PM EST Rush Watts MD LABORATORY Final Result Performing Organization Address [facility] Co de Phone Number [facility] (CLIA# [id number]) [address] [place] [address] * CK, CREATINE KINASE (CPK, TOTAL) (08/25/2007) [facility] CK (CREATINE KINASE) 46 0 - 165 IU/L [facility] (CLIA# [id number]) 08/25/2007 08/25/2007 3:3 1 PM EST Rush Watts MD LAB SAME DAY RESULT Final Resul t Performing Organization Address [facility] de Phone Number [facility] (CLIA# [id number]) [address] [place] [address] * (ABNORMAL) BASIC METABOLIC PANEL (08/25/2007) Pathologist [facility] CALCIUM 9.4 8.6 - 10.2 MG/DL [facility] (CLIA# [id number]) BUN 26(H) 7 - 25 MG/DL [facility] (CLIA# [id number]) CREATININE 0.90 0.50-1.30/ 1.20 MG/DL [facility] (CLIA# [id number]) BUN/Creatinine Ratio 29(H) 6 - 25 [facility] (CLIA# [id number]) Glucose 108(H) 65 - 99 MG/DL [facility] (CLIA# [id number]) SODIUM 141 135 - 146 MMOL/L [facility] (CLIA# [id number]) POTASSIUM 4.9 3.5 - 5.3 MMOL/L [facility] (CLIA# [id number]) CHLORIDE 106 98 - 110 MMOL/L [facility] (CLIA# [id number]) CARBON DIOXIDE 25 21 - 33 MMOL/L [facility] (CLIA# [id number]) 08/25/2007 08/25/2007 3:3 1 PM EST Rush Watts MD LAB SAME DAY RESULT Final Resul t Performing Organization Address [facility] Co de Phone Number [facility] (CLIA# [id number]) [address] [place] [address] * ASPARTATE AMINOTRANSFERASE (AST), SERUM (08/25/2007) AST (SGOT) 18 10 - 35 U/L [facility] (CLIA# [id number]) 08/25/2007 08/25/2007 3:3 1 PM EST us Rush Watts MD LAB SAME DAY RESULT Final Resul t Performing Organization Address [facility] Co de Phone Number [facility] (CLIA# [id number]) [address] [place] [address] * ALANINE AMINOTRANSFERASE (ALT), SERUM (08/25/2007) ALT (SGPT) 27 6 - 40 U/L [facility] (CLIA# [id number]) 08/25/2007 08/25/2007 3:3 1 PM EST Rush Watts MD LAB SAME DAY RESULT Final Resul t Performing Organization Address [facility] Co de Phone Number [facility] (CLIA# [id number]) [address] [place] [address] documented in this encounter Visit Diagnoses Diagnosis HYPERLIPIDEMIA Other and unspecified hyperlipidemia DIABETES MELLITUS TYPE II Type II or unspecified type diabetes mellitus without mention of complication, not stated as uncontrolled HYPOTHYROIDISM Unspecified hypothyroidism documented in this encounter Care Teams Channel Opener Outsoles Relationship Specialty Start Date End Date Rush Watts MD [facility] [address] [place] [phone] PCP - General 10/12/05 documented as of this encounter
--- OUTSIDE RECORDS SUMMARY | 2024-11-19 12:49 | XMS_ITS | Encounter Summary ---
Author Organization [facility] Address [address] [place] [address] Care Team Providers Care Manager Technology Name Role Phone Rush Watts MD Primary Care Provider [phone] Encounter Details Date Type Department Care Team (Late st Contact Info) Description 03/09/2008 Orders Only [facility] [address] [place] [phone] Rush Watts MD [facility] [address] [place] [address] Social History Tobacco Use Types Packs/Day Years [...] Result * (ABNORMAL) HEMOGLOBIN A1C (03/09/2008) Pathologist [facility] Hemoglobin A1C 6.1(H) 0.0 - 5.9 % GLUCOSE MEAN VALUE 140 MG/DL 03/09/2008 03/09/2008 6: 04 PM EDT us Rush Watts MD LABORATORY Final Result * (ABNORMAL) CBC 5 PART DIFF (03/09/2008) Pathologist [facility] [place] WHITE BLOOD COUNT 5.9 3.8 - 10.8 [...] t * BASIC METABOLIC PANEL (03/09/2008) Pathologist [facility] CALCIUM 10.1 8.6 - 10.2 MG/DL BUN [...] hypothyroidism documented in this encounter Care Teams Manager Technology Relationship Specialty Start Date End Date Rush Watts MD [facility] [address] [place] [phone] PCP - General 10/12/05 documented as of this encounter
--- OUTSIDE RECORDS SUMMARY | 2024-11-19 12:49 | XMS_ITS | Encounter Summary ---
Author Organization [facility] Address [address] [place] [address] Care Team Providers Care Acquisition Editor Name Role Phone Rush Watts MD Primary Care Provider [phone] Encounter Details Date Type Department Care Team (Late st Contact Info) Description 03/15/2009 Orders Only [facility] Pre-Admission Testing [address] [facility] [address] [place] [address] Shayla Zurita MD [address] [place] [address] Social History Tobacco Use Types Packs/Day Years [...] of this encounter Procedures * Due to [place] [employer] law, this organization might not be sharing negative HIV tests. Procedure Name Priority Date/Time Associated Diagnosis Comments CULTURE, URINE Routine 03/15/2009 Urine Incontinence MRSA SCREEN, ANY SOURCE Routine 03/15/2009 Preop Examination URINALYSIS, COMPLETE (DIP & MICRO) Routine 03/15/2009 Urine Incontinence documented in this encounter Results * Due to [place] state law, this organization might not be [...] DAY RESULT Final Result [facility] [address] [place] [address] * CULTURE, URINE (03/15/2009) URINE CULTURE CLEAN VOID SEE TEXT [facility] Comment: SOURCE: URINE MULTIPLE ORGANISMS, EACH <10,000 CFU/ML. MAY REPRESENT NORMAL TADEO CONTAMINATION FROM EXTERNAL GENITALIA. NO FURTHER TESTING. 03/15/2009 03/15/2009 7:2 3 PM EDT Shayla Zurita MD LABORATORY Final Result [facility] [address] [place] [address] * (ABNORMAL) MRSA SCREEN, ANY SOURCE (03/15/2009) [...] MD LABORATORY Final Result Performing Organization Address [facility] Co de Phone Number [facility] [address] [place] [address] documented in this encounter Visit Diagnoses Diagnosis HTN (hypertension) Unspecified essential hypertension Preop examination Preoperative examination, unspecified Urine incontinence Unspecified urinary incontinence documented in this encounter Care Teams Acquisition Editor Relationship Specialty Start Date End Date Rush Watts MD [facility] [address] [place] [phone] PCP - General 10/12/05 documented as of this encounter
--- OUTSIDE RECORDS SUMMARY | 2024-11-19 12:49 | XMS_ITS ---
[facility] Address [address] [place] [address] Care Team Providers Care Grain Elevator Clerk Name Role Phone MateoLuzma Primary Care Provider Unavailabl e Black, Gabriella Unavailable [phone] Allergies Allergen (clinical drug ingredient) Drug/Non Drug [...] for 2 Days Active Vitamin A Active Alvarado 3 Active Aspirin Active Vitamin E Active [...] Problem Acquired hammer toe of right foot (3531822900708 105) Other hammer toe(s) (acquired), right foot (M20.41) Active confirmed Problem Acquired hammer toe of left foot (0619246820142 103) Other hammer toe(s) (acquired), left foot (M20.42) Active confirmed Vital Signs Height 5 ft 5in in 08/05/2024 Weight 248 lbs 08/05/2024 BMI 41.26 kg/m2 08/05/2024 Blood pressure systolic 138 mm Hg 08/05/19 25 Blood pressure diastolic 68 mm Hg 025 Procedures Procedure Date Ordered Date Performed Result Body Sit e 40500-KJJC SKIN LESIONS, 2 TO 4 08/05/2024 N/A Q0709-FWJBGDHP DYSTROPHIC NAILS ANY # 08/05/2024 N/A Encounters Encounter Location Date Provider Diagnosis [facility] [address] [place] [address] 08/05/2024 Gabriella Black Type 2 diabetes mellitus [...] INSTRUCTIONS.pdf) Pending Test Test Name Order Date 19260-UADJ SKIN LESIONS, 2 TO 4 08/05/19 25 U3016-OIQFVHDO DYSTROPHIC NAILS ANY # Next Appt Details Follow Up: prn, Reason: Provider Name:Gabriella Delvalle , 02/14/2025 02:00:00 PM, [address] [place] [address], [phone], Procedure Notes * Category Sub-Category Detail Notes [...] instrumentation by the physician of record - 67735 Nail Reduction Nail Reduction Trimming of dyst rophic nails performed to reduce/remove overall nail length and girth, by manual and electrical means with use of a nail nipper and/or dremel, to more viable healthy nail plate or bed tissue 6-10 (G0127),T1, T2, T3, T4, T6, T7, T8, T9 Progress Notes * Vanessa NOVAK PDOB: [birth year] (89 yo F)Acc No.[id number]:08/05/2024 Progress Note Patient:?Vanessa NOVAK P Provider:?Gabriella Delvalle DPM :1935???Age:89 Y???Sex:Female D ate:08/05/2024 Address:[address] [place] [address] [address] [place], [address], [phone] Pcp:Luzma Galindo Subjective: * Chief Complaints: * [...] Zinc Vitamin E Vitamin C Vitamin A Alvarado 3 Multivitamin Amoxicillin 500 MG Capsule TAKE [...] Taking Vitamin C Taking Vitamin A Taking Alvarado 3 Taking Multivitamin Taking Amoxicillin 500 MG [...] Medial plantar.?Vascular: ?DP PULSES (B):?2/4, B/L.?PT PULSES (B):?1/4, B/L.?Orthopedic: ?MUSCLE STRENGTH:?5/5 all groups in a [...] 2.?Type 2 diabetes mellitus with diabetic polyneuropathy?Procedure: 45404-ZWEV SKIN LESIONS, 2 TO 4 ?Procedure: Q5247-KXAAKHPK DYSTROPHIC NAILS ANY # * Procedures:?Keratoma Treatment:?Parring [...] instrumentation by the physician of record - 10097.?Nail Reduction:?Nail Reduction?Trimming of dystrophic nails performed to reduce/remove overall nail length and girth, by manual and electrical means with use of a nail nipper and/or dremel, to more viable healthy nail plate or bed tissue 6-10 (G0127),T1, T2, T3, T4, T6, T7, T8, T9.? * Procedure Codes:?39993 TRIM SKIN LESIONS, 2 TO 4, Modifiers: [...] Delvalle DPM Date:?2024 Generated for Car palomares/Miller/Mikey on:?11/19/2024 12:48 PM EDT History and Physical [...] 1 st Met-Cuneiform joint with inflammation, B/L FOOTWEAR EVALUATION: worn, non-supportiv e, shoe gear properties exacerbate patient's foot/toe deformity [...]
--- OUTSIDE RECORDS SUMMARY | 2024-11-19 12:49 | XMS_ITS ---
Author Organization [facility] Address [address] [place] [address] Care Team Providers Care Slitter And Cutter Operator Name Role Phone MateoLuzma Primary Care Provider Unavailabl e Black, Gabriella Unavailable [phone] Allergies Allergen (clinical drug ingredient) Drug/Non Drug Allergy documented on EMR Reaction Allergy Type Onset Date Status Lisinopril Unknown Drug Allergy Active REASON FOR VISIT At Risk Footcare Medications Medication SIG (Take, Route, Frequency, Duration) Notes Start Date End Date Status Extra Depth Orthopedic Shoes (1 Pair) with Customized Heat Molded Multidensity Innersoles (3 Pair) as directed Dx: NIDDM/Polyneuropathy (E11.42), Hammertoe Foot Deformity (M20.41,M20.42), Preulcerative Skin Lesion(s) (L85.1 08/05/2024 Active Voltaren 1 % as directed Externally 01/15/2024 Active Simvastatin 40 MG TAKE 1 TABLET BY CELENA TH EVERY DAY AT BEDTIME Oral for 90 Days Active metFORMIN HCl 500 MG 1000 MG (2 X 500 MG ) ORALLY 2 TIMES A DAY FOR 90 DAYS Oral for 90 Days Active Solifenacin Succinate 10 MG TAKE 1 TABLE T BY MOUTH EVERY DAY Oral for 90 Days Active Fluticasone Propionate Active Insulin Glargine 11/14/2023 Ac tive Gabapentin 100 MG TAKE 1 CAPSULE BY MO UTH THREE TIMES A DAY Oral for 90 Days Active Losartan Potassium 100 MG TAKE 1 TABLET BY MOUTH EVERY DAY Oral for 90 Days Active Levothyroxine Sodium 88 MCG TAKE 1 TABLE T BY MOUTH EVERY DAY IN THE MORNING Oral for 90 Days Active Cyanocobalamin Activ e Fexofenadine HCl Act katrin Biotin Active Cyclobenzaprine HCl 5 MG TAKE 1 TABLET O RALLY 3 TIMES A DAY NEEDED FOR MUSCLE SPASM FOR 30 DAYS Oral for 10 Days PRN Active Cholecalciferol Acti ve [place] 3 Active Vitamin A Active Amoxicillin 500 MG TAKE 4 CAPSULES BY M OUTH AT ONE TIME 1 HOUR BEFORE PROCEDURE Oral for 2 Days Active Multivitamin Active Aspirin Active Zinc Active Vitamin C Active Vitamin E Active Copper Active PreserVision AREDS A ctive One Touch Delica Lancets Active Social History Tobacco Use: Social History Observation Description Date Details (start date - stop date) Never Smoker NA - NA Tobacco use other than smoking: Question Answer Notes Are you an other tobacco user? No Tobacco Control (Standard) Question Answer Notes Tobacco use: Nonsmoker Vital Signs Height 5 ft 5in in 11/11/2024 Weight 248 lbs 11/11/2024 BMI 41.26 kg/m2 11/11/2024 Blood pressure systolic 136 mm Hg 11/12/19 25 Blood pressure diastolic 68 mm Hg 025 Procedures Procedure Date Ordered Date Performed Result Body Sit e 01526-AGIM SKIN LESIONS, 2 TO 4 11/11/2024 N/A B3368-PRDIBECF DYSTROPHIC NAILS ANY # 11/11/2024 N/A Encounters Encounter Location Date Provider Diagnosis [facility] [address] [address] 11/11/2024 Gabriella Delvalle Type 2 diabetes mellitus with diabetic polyneuropathy E11.42 Assessments Encounter Date Diagnosis (ICD Code) Assessment Notes Treatment Notes Treatment Clinical Notes Section Notes 11/11/2024 Type 2 diabetes mellitus with diabetic polyneuropathy (ICD-10 - E11.42) Plan Of Treatment Pending Test Test Name Order Date 47319-WEJT SKIN LESIONS, 2 TO 4 11/12/19 25 D5188-KVRHGUEU DYSTROPHIC NAILS ANY # Next Appt Details Follow Up: prn, Reason: Provider Name:Gabriella A Mook , 02/14/2025 02:00:00 PM, [address] [place] [address], [phone], Procedure Notes * Category Sub-Category Detail Notes [...] instrumentation by the physician of record - 95366 Nail Reduction Nail Reduction Trimming of dyst rophic nails performed to reduce/remove overall nail length and girth, by manual and electrical means with use of a nail nipper and/or dremel, to more viable healthy nail plate or bed tissue 6-10 (G0127),T1, T2, T3, T4, T6, T7, T8, T9 Progress Notes * Vanessa NOVAK PDOB: [birth year] (89 yo F)Acc No.[id number]:11/11/2024 Progress Note Patient:?Vanessa NOVAK P Provider:?Gabriella Delvalle DPM :1935???Age:89 Y???Sex:Female D ate:11/11/2024 Address:[address] [place] [address], [address] Pcp:Luzma Galindo Subjective: * Chief Complaints: * ???At Risk Footcare * HPI: ???At Risk footcare:?Pt States Last PCP Visit:?Date?10/06/2024 * ROS:?General/Constitutional:?Nausea?denies.?Vomiting?denies.?Hunger Thirst?denies.?Loss appetite?denies.?Chills?denies.?Fatigue?admits.?Fever?denies.?Night Sweats?denies.?Unexplained weight loss?denies.?Unexplained [...] other tobacco user??No ?Tobacco Control (Standard)?Tobacco use:?Nonsmoker ???Miscellaneous:?Caffeine: yes, 1-2 cups per day. ?Children: no. ?Exercise: no. ?Marital status: single. 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 * Medications:?TakingOne Touch Delica Lancets PreserVision AREDS Copper Zinc Vitamin E Vitamin C Vitamin A [place] 3 Multivitamin Amoxicillin 500 MG Capsule TAKE [...] Voltaren 1 % Gel as directed Externally Extra Depth Orthopedic Shoes (1 Pair) with Customized Heat Molded Multidensity Innersoles (3 Pair) as directed Dx: NIDDM/Polyneuropathy (E11.42), Hammertoe Foot Deformity (M20.41,M20.42), Preulcerative Skin Lesion(s) (L85.1 Medication List reviewed and reconciled with the patientTaking One Touch Delica Lancets Taking PreserVision AREDS Taking Copper Taking Zinc Taking Vitamin E Taking Vitamin C Taking Vitamin A Taking [place] 3 Taking Multivitamin Taking Amoxicillin 500 MG [...] Voltaren 1 % Gel as directed Externally Taking Extra Depth Orthopedic Shoes (1 Pair) with Customized Heat Molded Multidensity Innersoles (3 Pair) as directed Dx: NIDDM/Polyneuropathy (E11.42), Hammertoe Foot Deformity (M20.41,M20.42), Preulcerative Skin Lesion(s) (L85.1 Medication List reviewed and reconciled with the patient * Allergies:?Lisinoprilyes[All ergies Verified] Objective: * Vitals:?Ht: 5 ft 5in, Wt: 24 8, BMI: 41.26, Shoe size: 10.5W, BP: 136/68 mm Hg, BS: 122, Ht-cm: 165.1 cm, Wt-k.49 kg. * ???Past Orders: ???Lab:HEMOGLOBIN A1C (GLYCO HEMOGLOBIN) (Order Date - 09/18/2024) (Collection Date & Time - 09/18/2024 02:16 PM) ? Value Reference Range ?HEMOGLOBIN A1C % (HH) 6.5 * Examination: ???Ophthalmology Referral: ?DIABETES EYE EXAM?Procedure Performed:?Yes ?Date of Exam Performed?06/20/2024 ?Findings of Diabetic Eye Exam:?no retinopathy?General Examination: ?GENERAL APPEARANCE:?Reveals a pleasant, alert, well nourished, well- developed, well hydrated individual, who demonstrates proper attention to hygiene/body habitus, and is in no acute distress, Pt serves as own historian for office visit today.?ORIENTED:?person, place, and time.?Neurological: ?SENSORY:?Neurological exam demonstrates reduced sharp/dull pin prick [...] plantar.?Vascular: ?DP PULSES (B):?2/4, B/L.?PT PULSES (B):?1/4, B/L.? Assessment: * Assessment: 1.?Type 2 diabetes mellitus with diabetic polyneuropathy - E11.42 (Primary)??? Plan: * Treatment: * Procedures:?Keratoma Treatment:?Parring or Cutting of Benign [...] instrumentation by the physician of record - 43318.?Nail Reduction:?Nail Reduction?Trimming of dystrophic nails performed to reduce/remove overall nail length and girth, by manual and electrical means with use of a nail nipper and/or dremel, to more viable healthy nail plate or bed tissue 6-10 (G0127),T1, T2, T3, T4, T6, T7, T8, T9.? * Procedure Codes:?40146 TRIM SKIN LESIONS, 2 TO 4, Modifiers: XS G0127 TRIMMING DYSTROPHIC NAILS ANY #, Modifiers: XS * Follow Up:?prn * Images: * Sign off status: Completed true * Provider:?Gabriella Delvalle DPM Date:?2024 Generated for Car palomares/Miller/eTransmitting on:?11/19/2024 12:48 PM EDT History and Physical Notes * HPI (History of Present Illness) Category Sub-Category Detail Notes Category Not es At Risk footcare Pt States Last PCP Visit: Date: 5 Examination Category Sub-Category Detail Notes Category Not [...] , TA , T5 , Medial plantar General Examination GENERAL APPEARANCE: Reveals a pleasant, alert, well nourished, well-developed, well hydrated individual, who demonstrates proper attention to hygiene/body habitus, and is in no acute distress, Pt serves as own historian for office visit today ORIENTED: person, place, and t geoff Ophthalmology Referral DIABETES EYE EXAM Procedure Perform ed:: Yes ?Date of Exam Performed: 06/20/2024 Findings of Diabetic Eye Exam:: no retin opathy Vascular DP PULSES (B): 2/4, B/L PT PULSES (B): 1/4, B/L Nails NAILS are: Elongated, overg rown, dystrophic, T1, T2, T3, T4, T6, T7, T8, T9
--- OUTSIDE RECORDS SUMMARY | 2024-11-19 12:49 | XMS_ITS | Encounter Summary ---
Author Organization [facility] Address [address] [place] [address] Care Team Providers Care Rejector Name Role Phone Rush Watts MD Primary Care Provider [phone] Encounter Details Date Type Department Care Team (Late st Contact Info) Description 03/16/2009 Orders Only [facility] [address] [place] [phone] Rush Watts MD [facility] [address] [place] [phone] Social History Tobacco Use Types Packs/Day Years [...] Primary documented in this encounter Care Teams Rejector Relationship Specialty Start Date End Date Rush Watts MD [facility] [address] [place] [phone] PCP - General 10/12/05 documented as of this encounter
--- OUTSIDE RECORDS SUMMARY | 2024-11-19 12:49 | XMS_ITS | Encounter Summary ---
Author Organization [facility] Address [address] [place] [address] Care Team Providers Care Cloud Developer Name Role Phone Rush Watts MD Primary Care Provider [phone] Encounter Details Date Type Department Care Team (Late st Contact Info) Description 03/15/2008 Orders Only [facility] [address] [place] [phone] Rush Watts MD [facility] [address] [place] [address] Social History Tobacco Use Types Packs/Day Years [...] encounter Procedures * Due to [place] [email or web address] law, this organization might not be sharing negative HIV tests. Procedure Name Priority Date/Time Associated Diagnosis Comments OCCULT BLOOD (STOOL GUAIAC) 3 SAMPLES Routine 03/15/2008 Special Screening for Malignant Neoplasms, Colon documented in this encounter Results * Due to [place] [email or web address] law, this organization might not be sharing [...] Primary documented in this encounter Care Teams Cloud Developer Relationship Specialty Start Date End Date Rush Watts MD [facility] [address] [place] [phone] PCP - General 10/12/05 documented as of this encounter
== END 2024-11-19 11:56 | disposition home or self-care (01) ==
LOC: HO.XRAY 11:55
PROVIDERS: PCP Internal Medicine; Visit Provider Internal Medicine
DX: M25.561 Pain in right knee (principal); M25.551 Pain in right hip
CPT/HCPCS: 73502; 73560

== ENCOUNTER → 2024-11-19 12:01 | Outpatient (BNV) | payer OTHER, SELFPAY | PROVIDERS: PCP Internal Medicine; Visit Provider Radiology Diagnostic Radiology | DX: M16.0 Bilateral primary osteoarthritis of hip (principal); M25.551 Pain in right hip; Z96.651 Presence of right artificial knee joint; M25.561 Pain in right knee | CPT/HCPCS: 73502; 73560 ==

== ENCOUNTER 2025-04-11 13:35 | Outpatient (AMB) | payer OTHER, SELFPAY ==
--- NOTE | 2025-04-11 13:55 | A.OFFPC_ITS ---
Vital Signs 04/11/25 13:57 Height 5 ft 6 in Weight 242 lb BMI 39.1 BP 140/60 H Blood Pressure Location Lt brachial Position Sitting Pulse 94 Pulse Source Pulse Oximeter Temp 97.3 F Temp Source Temporal Artery Scan Pulse Oximetry (%) 95 Oxygen Delivery Method Room Air Intake Visit Reasons: Annual Exam Allergies lisinopril (LISINOPRIL) Allergy (Unknown, Verified 04/11/25 14:01) COUGH Sulfa (Sulfonamide Antibiotics) Adverse Reaction (Intermediate, Verified 04/11/25 14:01) Nausea Medication List - Last Reconciled 04/11/25 by Luzma Galindo MD [ADULT DIAPERS XL As directed] albuterol sulfate 90 mcg/actuation (ProAir HFA) 2 puffs inhalation Q4-6H PRN amoxicillin 4 tabs at one time 1 hour before procedure PO; 30 days aspirin (Adult Aspirin Regimen) 81 mg PO DAILY biotin 300 mcg PO DAILY blood sugar diagnostic (Antix LabsTouch Verio test strips) As directed test blood glucose 3x daily cholecalciferol (vitamin D3) 25 mcg PO DAILY [CPAP As directed] cyanocobalamin (vitamin B-12) 1,000 mcg PO DAILY cyclobenzaprine 5 mg PO TID PRN 30 days fexofenadine (Isis Allergy) 180 mg PO DAILY fluticasone propionate 50 mcg/actuation 2 sprays intranasal DAILY gabapentin 100 mg PO TID 90 days hydrocortisone 2.5% (Proctosol HC) 1 appl AL BID-QID PRN insulin glargine (Lantus Solostar U-100 Insulin) 22 units subcut QAM lancets test 3 times daily levothyroxine 88 mcg PO QAM losartan 100 mg PO DAILY meloxicam 15 mg PO DAILY PRN metformin 1,000 mg (2 x 500 mg) PO BID 90 days miconazole nitrate 2% (Antifungal (miconazole)) 1 appl topical TID miconazole nitrate 2% (Zeasorb AF) 1 appl topical BID multivitamin 1 tab PO DAILY omega-3 fatty acids (Fish Oil Concentrate) 1,000 mg PO DAILY [RESMED nasal mask medium size 6 cm water humidified air As directed] simvastatin 40 mg PO BEDTIME sitagliptin phosphate (Januvia) 100 mg PO DAILY solifenacin 10 mg PO DAILY 90 days vitamins A,C,I-oyov-hmhfue 4,296 mcg-226 mg-90 mg (PreserVision AREDS) 1 cap PO BID Tobacco use date assessed: 04/11/25 Fall risk assessment: No Falls in past year Last assessed Fall Risk: 04/11/25 Dental Screening Dental Screen Date: 04/11/25 Did you have a dental visit in the last 12 months?: Yes Did you have a dental problem in the last 6 months where you did not have access to dental care?: No Was dental information given to patient?: Patient has dentist HPI Annual Exam HPI Details 3 weeks waking after 3 hours of sleeping [facility] Medical History Osteoarthritis Type 2 diabetes mellitus with hyperglycemia Pulmonary nodule Asthma Obesity Hypercholesterolemia Hypertension GERD (gastroesophageal reflux disease) Urge incontinence Obstructive sleep apnea Thrombocytopenia Vitamin D deficiency Insomnia Hypothyroidism Surgical History History of bilateral cataract extraction History of tonsillectomy History of total abdominal hysterectomy and bilateral salpingo-oophorectomy History of appendectomy History of cholecystectomy History of knee replacement procedure of right knee History of left knee replacement Family History Father Myocardial infarction Hypertension CVD (cardiovascular disease) Mother Hypertension Diabetes Cancer Brother Stroke Diabetes Sister Stroke Diabetes Paternal Uncle Myocardial infarction Social History Housing: Apartment Alcohol intake: never Patient Tobacco Use Status: Former Tobacco user Tobacco use type: Cigarette Years Smoked: stopped 1960 e-Cigarette/Vaping Use: Never Used Second Hand Smoke Exposure: Yes service: No Current occupational status: retired Cognitive needs: No Hearing needs: No Vision needs: Yes (Glasses) Questionnaire PHQ-9 Over the last 2 weeks, how often have you been bothered by any of the following problems? 1. Little interest or pleasure in doing things: not at all 2. Feeling down, depressed, or hopeless: not at all 3. Trouble falling or staying asleep, or sleeping too much: not at all 4. Feeling tired or having little energy: not at all 5. Poor appetite or overeating: not at all 6. Feeling bad about yourself - or that you are a failure or have let yourself or your family down: not at all 7. Trouble concentrating on things, such as reading the newspaper or watching television: not at all 8. Moving or speaking so slowly that other people could have noticed. Or the opposite - being so fidgety or restless that you have been moving around a lot more than usual: not at all 9. Thoughts that you would be better off or of hurting yourself in some way: not at all Total score: 0 Source: Developed by Drs. Lico Chand, Alisson Hill, Bang Matson and colleagues, with an educational maribell from [employer]. Thrive Questionnaire Date Thrive assessed: 04/04/25 I am a: Patient What is your living situation today?: I have a steady place to live Within the past 12 months, did the food you bought not last and you didn't have the money to get more?: Never true Within the past 12 months, did you worry whether your food would run out before you got money to buy more?: Never true Do you have trouble paying for medicines?: No Do you have trouble getting transportation to medical appointments?: No Do you have trouble paying your heating and electricity bill?: No Do you have trouble taking care of your child, family member or friend?: No Do you have trouble with day-to-day activities such as bathing, preparing meals, shopping, managing finances, etc.?: No Are you currently unemployed and looking for a job?: No Are you interested in more education?: No Please select the resources that you would like help with: None Currently or been in a relationship where the following occur: No concerns reported THRIVE Score: 0 AUDIT C Alcohol Use Questionnaire (AUDIT-C) 1. How often do you have a drink containing alcohol?: Monthly or less 2. How many drinks containing alcohol do you have on a typical day when you are drinking?: 1 or 2 3. How often do you have six or more drinks on one occasion?: Never Total Score: 1 ROYAL-7 AMB Questionnaire ROYAL-7 Date ROYAL - 7 assessed: 10/06/24 Feeling nervous, anxious, or on edge: 0 = Not at all Not being able to stop or control worryin = Not at all Worrying too much about different things: 0 = Not at all Trouble relaxin = Not at all Being so restless that it is hard to sit still: 0 = Not at all Becoming easily annoyed or irritable: 0 = Not at all Feeling afraid as if something awful might happen: 0 = Not at all Total ROYAL-7 score (0-4 normal; 5-9 mild; 10-14 moderate; 15-21 severe): 0 Source: Developed by Drs. Lico Chand, Alisson Hill, Bang Matson and colleagues, with an educational maribell from [employer]. Review of Systems Const Denies poor appetite and Denies weakness Eyes Denies no additional complaints ENT Reports Normal hearing present, Denies dizziness, Denies nasal congestion, Denies tinnitus and Denies sore throat Card Denies chest pain, Denies syncope, Denies rapid heart rate and Denies dyspnea Resp Denies cough and Denies dyspnea GI Denies change in stool character, Reports constipation, Denies diarrhea, Denies nausea and Denies vomiting Denies urinary frequency, Denies difficulty voiding and Denies dysuria Neuro Reports Normal hearing present, Denies confusion, Denies dizziness, Denies syncope and Denies weakness Psych Denies confusion Physical exam (Primary Care) Vital Signs: Last Vital Signs Temp 97.3 F 04/11/25 13:57 Pulse 94 04/11/25 13:57 BP 140/60 H 04/11/25 13:57 Pulse Ox 95 04/11/25 13:57 Oxygen Delivery Method Room Air 04/11/25 13:57 BMI result Body Mass Index 39.1 Tobacco/Smoking Status: Tobacco use Status Tobacco use date assessed 04/11/25 04/11/25 14:03 Patient Tobacco Use Status Former Tobacco user 04/11/25 13:55 Tobacco use type Cigarette 04/11/25 13:55 e-Cigarette/Vaping Use Never Used 04/11/25 13:55 PHQ-9: PHQ-9 Score PHQ-9: Total score 0 04/11/25 14:07 Thrive Assessment: Date of Thrive Assessment Date Thrive assessed 04/04/25 04/11/25 13:55 Currently or been in a relationship where the following occur: No concerns reported Const General: No confusion Orientation/consciousness: No confusion HENMT Head: Yes normocephalic Ears: external ears normal and TM's normal bilaterally Face and sinus: Yes normal facial exam Mouth: moist mucous membranes Throat: Yes tonsils normal Eyes Conjunctivae: conjunctivae normal Pupils: Equal, round and reactive pupils present and Pupil accommodation reflex normal Direct Ophthalmoscopy: normal light reflex Neck Neck: No lymphadenopathy Thyroid: Thyroid normal Chest Chest palpation & inspection: normal inspection of the chest Resp Effort & Inspection: normal respiratory effort and no audible wheezes Auscultation: clear to auscultation bilaterally, no crackles, no wheezes and lung sounds not diminished Cardio Rate: regular rate Rhythm: regular rhythm Peripheral pulses: radial pulses present and dorsalis pedis present GI Other: guaiac negative , pedal pulse and pin prick good Palpation (GI): no masses Auscultation: normal bowel sounds and normoactive bowel sounds Skin General skin exam: no rashes or lesions noted Rashes: no rashes Neuro General: No confusion Cranial nerves: Yes Equal, round and reactive pupils present and Yes Normal hearing present Cognition (Neuro): normal cognition Gait exam (Neuro): Normal gait present Motor exam (neuro): 5/5 motor strength present throughout Deep tendon reflexes (DTR's): Right brachioradialis reflex intensity grade: 2+, Left brachioradialis reflex intensity grade: 2+, Right patellar reflex intensity grade: 2+ and Left patellar reflex intensity grade: 2+ Extrem General: No edema Results AMB Hemoglobin A1c AMB Hemoglobin A1c 7.1 % Last Edit by Tia Dai CMA on 04/11/25 14:17 Results Reviewed Results Reviewed: Laboratory Last Values Hgb A1c (Clinic) 7.1 % (4.0-6.0) H 04/11/25 14:03 Coding Level of Care Code Est Pt Prev Care >65y(22990) Diagnoses Annual physical exam Z00.00 Type 2 diabetes mellitus with hyperglycemia, with long-term current use of insulin E11.65; Z79.4 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: with [facility] use Acquired hypothyroidism E03.9 Hypothyroidism type: acquired Essential hypertension I10 Hypertension type: essential hypertension Hypercholesterolemia E78.00 Gastroesophageal reflux disease without esophagitis K21.9 Esophagitis presence: without esophagitis Low back pain M54.50 Obstructive sleep apnea G47.33 Assessment & Plan Assessment & Plan (1) Annual physical exam: Code(s): Z00.00 - Encounter for general adult medical examination without abnormal findings Category: Medical Plan: Patient is advised to eat healthy, keep well hydrated, keep active and have adequate sleep. (2) Type 2 diabetes mellitus with hyperglycemia: Comment: Dr. 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 Hemoglobin A1c goal of less than 7.0 patient is on Lantus 20 units once a day metformin a 1000 mg twice a day (3) Hypothyroidism: Code(s): E03.9 - Hypothyroidism, unspecified Category: Medical Qualifiers: Hypothyroidism type: acquired Qualified Code(s): E03.9 - Hypothyroidism, unspecified Plan: Continue with thyroid medication (4) Hypertension: Comment: Echocardiogram August 2019 60-65% nuclear stress test negative September 2019 Code(s): I10 - Essential (primary) hypertension Category: Medical Qualifiers: Hypertension type: essential hypertension Qualified Code(s): I10 - Essential (primary) hypertension Plan: Continue with blood pressure medication. Decrease salt intake and exercise on losartan 100 mg 100 mg once a day (5) Hypercholesterolemia: Code(s): E78.00 - Pure hypercholesterolemia, unspecified Category: Medical Plan: Avoid fried foods, chicken skin, eggs, butter margarine, pastries and meat. Be it pork or beef they have a lot of cholesterol LDL goal of less than 70 and triglyceride of less than 150 on simvastatin 40 mg once a day (6) GERD (gastroesophageal reflux disease): Code(s): K21.9 - Gastro-esophageal reflux disease without esophagitis Category: Medical Qualifiers: Esophagitis presence: without esophagitis Qualified Code(s): K21.9 - Gastro-esophageal reflux disease without esophagitis Plan: Avoid the foods that causes that usually spicy foods, tomato products, juices, coffee, soda and foods that your sensitive to. After eating do not lie down, allow 3-4 hours before in lie down. And keep the head of bed above 30 degrees to avoid the acid from going up. (7) Low back pain: Comment: Lumbar degenerative disc disease August 2022 Code(s): M54.50 - Low back pain, unspecified Category: Medical Plan: Continue to keep active (8) Obstructive sleep apnea: Comment: October 2013RESMED nasal mask medium size 6 cm water humidified air Code(s): G47.33 - Obstructive sleep apnea (adult) (pediatric) Category: Medical Plan: Continue to use the CPAP more than 4 hours a night and benefits from this Plan History of Present Illness The patient is an 89-year-old female presenting for an annual physical examination. The patient has a history of obesity, hypothyroidism, obstructive sleep apnea, gastroesophageal reflux disease, hypertension, hypercholesterolemia, and diabetes mellitus. She also has a history of cerebrovascular accident and osteoarthritis, with a status post right total knee arthroplasty. Her last colonoscopy was performed in 2011, and she has declined mammograms. The patient reports hip pain, with an x-ray in November showing joint space narrowing consistent with osteoarthritis. Laboratory results from September 2024 indicate normal blood count with mild thrombocytopenia, good renal function, and a hemoglobin A1c of 6.7%. Cholesterol levels were good with an LDL of 61 mg/dL. The patient is on multiple medications including Lantus, metformin, losartan, simvastatin, and a CPAP machine for sleep apnea. She reports using a walker at night due to a cat in the household and denies any recent falls or dizziness. Health Maintenance - Colonoscopy last performed in 2011 - Declined mammograms - Annual physical examination - CPAP usage for obstructive sleep apnea Social History - Exercise: Engages in gardening activities - Functional status: Uses a walker at night due to a cat in the household Review of Systems - General: Denies recent falls or dizziness - Musculoskeletal: Reports hip pain, denies back pain - Neurological: Denies dizziness, syncope, or recent falls - Respiratory: Reports occasional difficulty sleeping despite CPAP usage Physical Exam General: Cooperative, healthy appearing, comfortable, no acute distress and well developed. Patient is obese. Orientation: Patient oriented x3 Limitations: No limitations Head: Normal to inspection Ears: Hearing grossly normal bilaterally Nose: Normal external nose present Face and sinus: Normal facial exam Eyes: Appearance normal, both eyes and all related structures Neck: Normal visual inspection and Yes full ROM Respiratory: Normal respiratory effort and able to speak in complete sentences. Clear to auscultation bilaterally Cardiovascular: Regular rate and rhythm. Normal S1 and S2 GI: Normal to inspection. Soft to palpation and nontender Skin: No rashes or lesions noted. Cheeks appear annette. Neuro: Patient oriented x3 Extremities: Normal to inspection. Status post right total knee arthroplasty. Results - Labs: Normal blood count with mild thrombocytopenia, hemoglobin A1c of 6.7%, LDL cholesterol of 61 mg/dL - Imaging: Hip x-ray showing joint space narrowing consistent with osteoarthritis Plan Patient was informed and verbally consented to the use of an ambient scribe for clinic note documentation during this visit. 1. Obesity The patient is advised to continue engaging in physical activities such as gardening to manage weight. 2. Hypothyroidism Continue current thyroid medication regimen. 3. Obstructive Sleep Apnea The patient is advised to continue using CPAP for more than 4 hours a night, as it provides benefits. 4. Gastroesophageal Reflux Disease (Gerd) Continue current management for GERD. 5. Hypertension Continue losartan 100 mg once daily. 6. Hypercholesterolemia Continue simvastatin 40 mg once daily with a goal LDL of less than 70 mg/dL. 7. Diabetes Mellitus The patient is on Lantus 22 units once daily and metformin 1000 mg twice daily, with a goal hemoglobin A1c of less than 7.0%. 8. Osteoarthritis The patient reports hip pain with x-ray findings consistent with osteoarthritis; continue current management and monitor symptoms. Discussion Notes During the visit, we discussed the management of the patient's chronic conditions, including diabetes, hypertension, and hypercholesterolemia. We emphasized the importance of medication adherence and lifestyle modifications, such as maintaining physical activity and using CPAP for sleep apnea. We also reviewed the patient's lab results and discussed the need for regular follow-up to monitor her conditions. The patient was advised to continue her current medication regimen and to return for follow-up visits as needed. Patient Instructions - Continue taking all prescribed medications as directed. - Use CPAP machine for at least 4 hours each night. - Engage in regular physical activity, such as gardening. - Schedule follow-up appointments as recommended. 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
[2025-04-11 13:57] VITALS: BP 140/60; PULSE 94; TEMP 36.3; O2SAT 95; BMI 39.1
--- OUTSIDE RECORDS SUMMARY | 2025-04-11 16:05 | XMS_ITS | Encounter Summary ---
Demographics Address [address] [place] [id number] Home Phone Mobile Phone Email Address Preferred Language Mongolian Marital Status Unknown
== END 2025-04-11 14:40 | disposition home or self-care (01) ==
LOC: HO.HMCH 13:36
PROVIDERS: PCP Internal Medicine; Visit Provider Internal Medicine
DX: Z00.00 Encounter for general adult medical examination without abnormal findings (principal); E11.65 Type 2 diabetes mellitus with hyperglycemia; Z79.4 Long term (current) use of insulin; E03.9 Hypothyroidism, unspecified; I10 Essential (primary) hypertension; E78.00 Pure hypercholesterolemia, unspecified; K21.9 Gastro-esophageal reflux disease without esophagitis; M54.50 Low back pain, unspecified; G47.33 Obstructive sleep apnea (adult) (pediatric); Z13.9 Encounter for screening, unspecified

== ENCOUNTER → 2025-04-11 13:35 | Outpatient (BNVA) | payer OTHER, SELFPAY | PROVIDERS: PCP Internal Medicine; Visit Provider Internal Medicine | DX: Z00.00 Encounter for general adult medical examination without abnormal findings (principal); E11.65 Type 2 diabetes mellitus with hyperglycemia; E03.9 Hypothyroidism, unspecified; I10 Essential (primary) hypertension; E78.00 Pure hypercholesterolemia, unspecified; K21.9 Gastro-esophageal reflux disease without esophagitis; M54.50 Low back pain, unspecified; G47.33 Obstructive sleep apnea (adult) (pediatric); E66.9 Obesity, unspecified; Z79.4 Long term (current) use of insulin; Z68.39 Body mass index [BMI] 39.0-39.9, adult | CPT/HCPCS: 83036; 96127; 99397 ==